=== PATIENT | male | born 1955 | race Caucasian/White ===

== ENCOUNTER 2019-11-11 08:34 | Outpatient (CLI) | payer MEDICAID, SELFPAY ==
[2019-11-11 08:48] LABS: Basophils Absolute Auto 0.2 K/mm3 (0.0-0.1); Basophils Percent Auto 0.3 % (0.2-1.2); Eosinophils Absolute Auto 0.1 K/mm3 (0-0.3); Eosinophils Percent Auto 0.2 % (0-4.4); Hematocrit 42.4 % (42.0-52.0); Hemoglobin 13.5 g/dL (14.0-18.0); Immature Granulocyte Absolute 0.11 K/mm3 (0.00-0.031); Immature Granulocyte Percent A 0.2 % (0-0.5); Lymphocytes Absolute Auto 46.47 K/mm3 (0.9-3.2); Lymphocytes Percent Auto 84.5 % (18.3-44.2); Mean Corpuscular HGB Conc 31.8 g/dl (32-36); Mean Corpuscular Hemoglobin 32.6 pg (26-34); Mean Corpuscular Volume 102.4 fl (80-100); Mean Platelet Volume 8.3 fl (7.4-10.4); Monocytes Absolute Auto 2.2 K/mm3 (0.1-0.6); Neutrophils Absolute Auto 5.9 K/mm3 (1.3-6.7); Neutrophils Percent Auto 10.8 % (45.5-73.1); Platelet Count Result 224 k/mm3 (150-375); Red Blood Count 4.14 M/mm3 (4.6-6.20); Red Cell Distribution Width 13.3 % (11.5-14.5)
[2019-11-11 08:52] LABS: Blood Urea Nitrogen 17 mg/dL (8-26); Carbon Dioxide 27 mmol/L (22-30); Chloride 103 mmol/L (98-109); Estimated Glomerular Filt Rate > 60; Glucose 105 mg/dL (70-105); Potassium 3.9 mmol/L (3.5-4.9); Sodium 141 mmol/L (138-146)
[2019-11-11 08:54] LABS: Atypical Lymphocytes Present; Platelet Estimate Adequate (Adequate)
[2019-11-11 12:20] LABS: Alanine Aminotransferase 15 U/L (4-50); Albumin Level 4.2 g/dL (3.5-5.1); Alkaline Phosphatase 113 U/L (38-126); Aspartate Amino Transferase 23 U/L (17-59); Bilirubin,Total 0.4 mg/dL (0.2-1.3); Blood Urea Nitrogen 17 mg/dL (9-20); Calcium 8.8 mg/dL (8.4-10.2); Carbon Dioxide 28 mmol/L (22-30); Chloride 103 mmol/L (98-107); Estimated Glomerular Filt Rate > 60; Glucose 102 mg/dL (75-110); Lactate Dehydrogenase 320 U/L (313-618); Potassium 4.1 mmol/L (3.4-5.0); Sodium 138 mmol/L (137-145)
== END 2019-11-11 08:35 | disposition home or self-care (01) ==
LOC: ANHLAB 08:38
PROVIDERS: PCP Internal Medicine Gastroenterology; Visit Provider Internal Medicine Hematology & Oncology
DX: C91.10 Chronic lymphocytic leukemia of B-cell type not having achieved remission (principal)
CPT/HCPCS: 36415; 80048; 80053; 83615; 85025

== ENCOUNTER 2020-02-12 10:11 | Outpatient (CLI) | payer MEDICARE, MEDICAID, SELFPAY ==
[2020-02-12 10:26] LABS: Basophils Absolute Auto 0.1 K/mm3 (0.0-0.1); Basophils Percent Auto 0.1 % (0.2-1.2); Eosinophils Absolute Auto 0.1 K/mm3 (0-0.3); Eosinophils Percent Auto 0.2 % (0-4.4); Hematocrit 41.2 % (42.0-52.0); Hemoglobin 13.4 g/dL (14.0-18.0); Immature Granulocyte Absolute 0.19 K/mm3 (0.00-0.031); Immature Granulocyte Percent A 0.3 % (0-0.5); Lymphocytes Absolute Auto 57.41 K/mm3 (0.9-3.2); Lymphocytes Percent Auto 84.4 % (18.3-44.2); Mean Corpuscular HGB Conc 32.5 g/dl (32-36); Mean Corpuscular Hemoglobin 32.4 pg (26-34); Mean Corpuscular Volume 99.8 fl (80-100); Mean Platelet Volume 8.3 fl (7.4-10.4); Monocytes Absolute Auto 2.6 K/mm3 (0.1-0.6); Monocytes Percent Auto 3.7 % (2.6-8.5); Neutrophils Absolute Auto 7.7 K/mm3 (1.3-6.7); Neutrophils Percent Auto 11.3 % (45.5-73.1); Platelet Count Result 221 k/mm3 (150-375); Red Blood Count 4.13 M/mm3 (4.6-6.20); Red Cell Distribution Width 13.3 % (11.5-14.5)
[2020-02-12 10:39] LABS: Atypical Lymphocytes Present; Platelet Estimate Adequate (Adequate)
[2020-02-12 10:50] LABS: Blood Urea Nitrogen 23 mg/dL (8-26); Carbon Dioxide 23 mmol/L (22-30); Chloride 104 mmol/L (98-109); Estimated Glomerular Filt Rate > 60; Glucose 99 mg/dL (70-105); Potassium 3.8 mmol/L (3.5-4.9); Sodium 141 mmol/L (138-146)
[2020-02-12 11:41] LABS: Alanine Aminotransferase 17 U/L (4-50); Albumin Level 4.4 g/dL (3.5-5.1); Alkaline Phosphatase 147 U/L (38-126); Aspartate Amino Transferase 28 U/L (17-59); Bilirubin,Total 0.4 mg/dL (0.2-1.3); Blood Urea Nitrogen 23 mg/dL (9-20); Calcium 8.7 mg/dL (8.4-10.2); Carbon Dioxide 26 mmol/L (22-30); Chloride 104 mmol/L (98-107); Estimated Glomerular Filt Rate > 60; Glucose 103 mg/dL (75-110); Lactate Dehydrogenase 361 U/L (313-618); Potassium 4.1 mmol/L (3.4-5.0); Sodium 139 mmol/L (137-145)
== END 2020-02-12 10:12 | disposition home or self-care (01) ==
PROVIDERS: PCP Internal Medicine Gastroenterology; Visit Provider Internal Medicine Hematology & Oncology
DX: C91.10 Chronic lymphocytic leukemia of B-cell type not having achieved remission (principal)
CPT/HCPCS: 36415; 80048; 80053; 83615; 85025

== ENCOUNTER 2020-06-09 07:41 | Outpatient (CLI) | payer MEDICARE, MEDICAID, SELFPAY ==
[2020-06-09 09:34] LABS: Basophils Absolute Auto 0.3 K/mm3 (0.0-0.1); Basophils Percent Auto 0.4 % (0.2-1.2); Eosinophils Absolute Auto 0.1 K/mm3 (0-0.3); Eosinophils Percent Auto 0.2 % (0-4.4); Hematocrit 40.9 % (42.0-52.0); Hemoglobin 13.3 g/dL (14.0-18.0); Immature Granulocyte Absolute 0.17 K/mm3 (0.00-0.031); Immature Granulocyte Percent A 0.2 % (0-0.5); Lymphocytes Absolute Auto 63.22 K/mm3 (0.9-3.2); Lymphocytes Percent Auto 89.4 % (18.3-44.2); Mean Corpuscular HGB Conc 32.5 g/dl (32-36); Mean Corpuscular Hemoglobin 32.2 pg (26-34); Mean Platelet Volume 8.2 fl (7.4-10.4); Monocytes Absolute Auto 1.2 K/mm3 (0.1-0.6); Monocytes Percent Auto 1.6 % (2.6-8.5); Neutrophils Absolute Auto 5.8 K/mm3 (1.3-6.7); Neutrophils Percent Auto 8.2 % (45.5-73.1); Platelet Count Result 205 k/mm3 (150-375); Red Blood Count 4.13 M/mm3 (4.6-6.20); Red Cell Distribution Width 13.2 % (11.5-14.5)
[2020-06-09 09:45] LABS: Alanine Aminotransferase 18 U/L (4-50); Albumin Level 4.3 g/dL (3.5-5.1); Alkaline Phosphatase 133 U/L (38-126); Anion Gap 7 mmol/L (8-16); Aspartate Amino Transferase 29 U/L (17-59); Bilirubin,Total 0.6 mg/dL (0.2-1.3); Blood Urea Nitrogen 18 mg/dL (9-20); Calcium 9.2 mg/dL (8.4-10.2); Carbon Dioxide 31 mmol/L (22-30); Chloride 104 mmol/L (98-107); Estimated Glomerular Filt Rate > 60; Glucose 102 mg/dL (75-110); Lactate Dehydrogenase 374 U/L (313-618); Potassium 4.1 mmol/L (3.4-5.0); Sodium 142 mmol/L (137-145)
[2020-06-09 09:58] LABS: Atypical Lymphocytes Present; Platelet Estimate Adequate (Adequate); White Blood Count 70.7 K/mm3 (4.5-10.0)
[2020-06-09 09:59] LABS: Smudge Cells PRESENT
== END 2020-06-09 07:42 | disposition home or self-care (01) ==
PROVIDERS: PCP Internal Medicine Gastroenterology; Visit Provider Internal Medicine Hematology & Oncology
DX: C91.10 Chronic lymphocytic leukemia of B-cell type not having achieved remission (principal)
CPT/HCPCS: 36415; 80053; 83615; 85025

== ENCOUNTER 2020-10-12 10:04 | Outpatient (CLI) | payer MEDICARE, MEDICAID, SELFPAY ==
[2020-10-12 10:24] LABS: Hematocrit 39.1 % (42.0-52.0); Hemoglobin 12.7 g/dL (14.0-18.0); Mean Corpuscular HGB Conc 32.5 g/dl (32-36); Mean Corpuscular Hemoglobin 32.5 pg (26-34); Mean Platelet Volume 8.1 fl (7.4-10.4); Platelet Count Result 193 k/mm3 (150-375); Red Blood Count 3.91 M/mm3 (4.6-6.20); Red Cell Distribution Width 13.6 % (11.5-14.5)
[2020-10-12 10:27] LABS: White Blood Count 92.4 K/mm3 (4.5-10.0)
[2020-10-12 10:51] LABS: Band Neutrophils Percent 1 % (0-6); Lymphocytes Absolute Manual 79.46 K/mm3 (1.1-4.5); Monocytes Absolute Manual 5.54 K/mm3 (0.1-0.90); Monocytes Percent Manual 6 % (3-9); Neutrophils Absolute Manual 7.39 K/mm3 (1.3-6.7); Neutrophils Percent Manual 7 % (46-73); Total Cells Counted 100
[2020-10-12 10:52] LABS: Platelet Estimate Adequate (Adequate); Smudge Cells PRESENT
[2020-10-13 08:03] LABS: Alanine Aminotransferase 22 U/L (4-50); Albumin Level 4.1 g/dL (3.5-5.1); Alkaline Phosphatase 135 U/L (38-126); Anion Gap 5 mmol/L (8-16); Aspartate Amino Transferase 33 U/L (17-59); Bilirubin,Total 0.3 mg/dL (0.2-1.3); Blood Urea Nitrogen 21 mg/dL (9-20); Calcium 8.7 mg/dL (8.4-10.2); Carbon Dioxide 29 mmol/L (22-30); Chloride 106 mmol/L (98-107); Estimated Glomerular Filt Rate > 60; Glucose 102 mg/dL (75-110); Lactate Dehydrogenase 421 U/L (313-618); Sodium 140 mmol/L (137-145)
== END 2020-10-12 10:05 | disposition home or self-care (01) ==
LOC: ANHLAB 10:08
PROVIDERS: PCP Internal Medicine Gastroenterology; Visit Provider Internal Medicine Hematology & Oncology
DX: C91.10 Chronic lymphocytic leukemia of B-cell type not having achieved remission (principal)
CPT/HCPCS: 36415; 80053; 83615; 85025

== ENCOUNTER 2020-11-16 09:42 | Outpatient (CLI) | payer MEDICARE, MEDICAID, SELFPAY ==
[2020-11-16 09:57] LABS: Basophils Absolute Auto 0.1 K/mm3 (0.0-0.1); Eosinophils Absolute Auto 0.2 K/mm3 (0-0.3); Eosinophils Percent Auto 0.2 % (0-4.4); Hematocrit 40.8 % (42.0-52.0); Hemoglobin 12.8 g/dL (14.0-18.0); Immature Granulocyte Absolute 0.22 K/mm3 (0.00-0.031); Immature Granulocyte Percent A 0.2 % (0-0.5); Lymphocytes Absolute Auto 90.44 K/mm3 (0.9-3.2); Lymphocytes Percent Auto 90.4 % (18.3-44.2); Mean Corpuscular HGB Conc 31.4 g/dl (32-36); Mean Corpuscular Hemoglobin 31.4 pg (26-34); Mean Platelet Volume 8.2 fl (7.4-10.4); Monocytes Absolute Auto 2.9 K/mm3 (0.1-0.6); Monocytes Percent Auto 2.9 % (2.6-8.5); Neutrophils Absolute Auto 6.3 K/mm3 (1.3-6.7); Neutrophils Percent Auto 6.3 % (45.5-73.1); Platelet Count Result 199 k/mm3 (150-375); Red Blood Count 4.08 M/mm3 (4.6-6.20); Red Cell Distribution Width 13.4 % (11.5-14.5)
[2020-11-16 10:01] LABS: White Blood Count 100.1 K/mm3 (4.5-10.0)
[2020-11-16 10:03] LABS: Atypical Lymphocytes Present; Platelet Estimate Adequate (Adequate); Smudge Cells PRESENT
[2020-11-16 13:39] LABS: Alanine Aminotransferase 21 U/L (4-50); Albumin Level 4.4 g/dL (3.5-5.1); Alkaline Phosphatase 134 U/L (38-126); Anion Gap 5 mmol/L (8-16); Aspartate Amino Transferase 29 U/L (17-59); Bilirubin,Total 0.4 mg/dL (0.2-1.3); Blood Urea Nitrogen 19 mg/dL (9-20); Carbon Dioxide 29 mmol/L (22-30); Chloride 106 mmol/L (98-107); Estimated Glomerular Filt Rate > 60; Glucose 103 mg/dL (75-110); Lactate Dehydrogenase 391 U/L (313-618); Potassium 4.2 mmol/L (3.4-5.0); Sodium 140 mmol/L (137-145)
== END 2020-11-16 09:43 | disposition home or self-care (01) ==
LOC: ANHLAB 09:44
PROVIDERS: PCP Internal Medicine Gastroenterology; Visit Provider Internal Medicine Hematology & Oncology
DX: C91.10 Chronic lymphocytic leukemia of B-cell type not having achieved remission (principal)
CPT/HCPCS: 36415; 80053; 83615; 85025

== ENCOUNTER 2021-02-24 09:44 | Outpatient (CLI) | payer MEDICARE, MEDICAID, SELFPAY ==
[2021-02-24 10:00] LABS: Basophils Absolute Auto 0.2 K/mm3 (0.0-0.1); Basophils Percent Auto 0.1 % (0.2-1.2); Eosinophils Absolute Auto 0.2 K/mm3 (0-0.3); Eosinophils Percent Auto 0.1 % (0-4.4); Hematocrit 39.4 % (42.0-52.0); Hemoglobin 12.4 g/dL (14.0-18.0); Immature Granulocyte Absolute 0.28 K/mm3 (0.00-0.031); Immature Granulocyte Percent A 0.2 % (0-0.5); Lymphocytes Absolute Auto 114.19 K/mm3 (0.9-3.2); Lymphocytes Percent Auto 88.8 % (18.3-44.2); Mean Corpuscular HGB Conc 31.5 g/dl (32-36); Mean Corpuscular Hemoglobin 31.4 pg (26-34); Mean Corpuscular Volume 99.7 fl (80-100); Monocytes Absolute Auto 7.4 K/mm3 (0.1-0.6); Monocytes Percent Auto 5.7 % (2.6-8.5); Neutrophils Absolute Auto 6.4 K/mm3 (1.3-6.7); Neutrophils Percent Auto 5.1 % (45.5-73.1); Platelet Count Result 203 k/mm3 (150-375); Red Blood Count 3.95 M/mm3 (4.6-6.20); Red Cell Distribution Width 13.4 % (11.5-14.5)
[2021-02-24 10:07] LABS: White Blood Count 128.6 K/mm3 (4.5-10.0)
[2021-02-24 10:10] LABS: Atypical Lymphocytes Present; Platelet Estimate Adequate (Adequate); Smudge Cells PRESENT
[2021-02-24 11:55] LABS: Alanine Aminotransferase 25 U/L (4-50); Albumin Level 4.2 g/dL (3.5-5.1); Alkaline Phosphatase 163 U/L (38-126); Anion Gap 8 mmol/L (8-16); Aspartate Amino Transferase 35 U/L (17-59); Bilirubin,Total 0.5 mg/dL (0.2-1.3); Blood Urea Nitrogen 20 mg/dL (9-20); Calcium 9.1 mg/dL (8.4-10.2); Carbon Dioxide 28 mmol/L (22-30); Chloride 102 mmol/L (98-107); Estimated Glomerular Filt Rate > 60; Glucose 84 mg/dL (65-110); Lactate Dehydrogenase 415 U/L (313-618); Potassium 4.2 mmol/L (3.4-5.0); Sodium 138 mmol/L (137-145)
== END 2021-02-24 09:45 | disposition home or self-care (01) ==
LOC: ANHLAB 09:49
PROVIDERS: PCP Internal Medicine Gastroenterology; Visit Provider Internal Medicine Hematology & Oncology
DX: C91.10 Chronic lymphocytic leukemia of B-cell type not having achieved remission (principal)
CPT/HCPCS: 36415; 80053; 83615; 85025

== ENCOUNTER 2021-05-27 10:20 | Outpatient (CLI) | payer MEDICARE, MEDICAID, SELFPAY ==
[2021-05-27 10:50] LABS: Basophils Absolute Auto 0.1 K/mm3 (0.0-0.1); Basophils Percent Auto 0.1 % (0.2-1.2); Eosinophils Absolute Auto 0.2 K/mm3 (0-0.3); Eosinophils Percent Auto 0.1 % (0-4.4); Hematocrit 38.5 % (42.0-52.0); Hemoglobin 11.9 g/dL (14.0-18.0); Immature Granulocyte Absolute 0.29 K/mm3 (0.00-0.031); Immature Granulocyte Percent A 0.2 % (0-0.5); Lymphocytes Absolute Auto 120.38 K/mm3 (0.9-3.2); Lymphocytes Percent Auto 89.1 % (18.3-44.2); Mean Corpuscular HGB Conc 30.9 g/dl (32-36); Mean Corpuscular Hemoglobin 31.3 pg (26-34); Mean Corpuscular Volume 101.3 fl (80-100); Mean Platelet Volume 8.3 fl (7.4-10.4); Monocytes Absolute Auto 8.2 K/mm3 (0.1-0.6); Neutrophils Absolute Auto 6.1 K/mm3 (1.3-6.7); Neutrophils Percent Auto 4.5 % (45.5-73.1); Platelet Count Result 183 k/mm3 (150-375); Red Cell Distribution Width 13.9 % (11.5-14.5)
[2021-05-27 10:56] LABS: White Blood Count 135.1 K/mm3 (4.5-10.0)
[2021-05-27 10:58] LABS: Atypical Lymphocytes Present; Platelet Estimate Adequate (Adequate); Smudge Cells PRESENT
[2021-05-27 11:39] LABS: Alanine Aminotransferase 26 U/L (4-50); Albumin Level 4.3 g/dL (3.5-5.1); Alkaline Phosphatase 153 U/L (38-126); Anion Gap 6 mmol/L (8-16); Aspartate Amino Transferase 57 U/L (17-59); Bilirubin,Total 0.5 mg/dL (0.2-1.3); Blood Urea Nitrogen 21 mg/dL (9-20); Calcium 9.3 mg/dL (8.4-10.2); Carbon Dioxide 32 mmol/L (22-30); Chloride 103 mmol/L (98-107); Estimated Glomerular Filt Rate > 60; Glucose 101 mg/dL (65-110); Lactate Dehydrogenase 417 U/L (313-618); Sodium 141 mmol/L (137-145)
== END 2021-05-27 10:21 | disposition home or self-care (01) ==
PROVIDERS: PCP Internal Medicine Gastroenterology; Visit Provider Internal Medicine Hematology & Oncology
DX: C91.10 Chronic lymphocytic leukemia of B-cell type not having achieved remission (principal)
CPT/HCPCS: 36415; 80053; 83615; 85025

== ENCOUNTER 2021-08-26 10:57 | Outpatient (CLI) | payer OTHER, SELFPAY ==
[2021-08-26 11:30] LABS: Hematocrit 39.8 % (42.0-52.0); Mean Corpuscular HGB Conc 30.2 g/dl (32-36); Mean Corpuscular Volume 102.8 fl (80-100); Mean Platelet Volume 7.8 fl (7.4-10.4); Platelet Count Result 233 k/mm3 (150-375); Red Blood Count 3.87 M/mm3 (4.6-6.20); Red Cell Distribution Width 13.8 % (11.5-14.5)
[2021-08-26 11:34] LABS: White Blood Count 126.3 K/mm3 (4.5-10.0)
[2021-08-26 11:38] LABS: Atypical Lymphocytes Present; Lymphocytes Absolute Manual 118.72 K/mm3 (1.1-4.5); Monocytes Absolute Manual 1.26 K/mm3 (0.1-0.90); Monocytes Percent Manual 1 % (3-9); Neutrophils Percent Manual 5 % (46-73); Nucleated Red Blood Cells 2 %; Platelet Estimate Adequate (Adequate); Smudge Cells PRESENT; Total Cells Counted 100
[2021-08-26 14:33] LABS: Alanine Aminotransferase 60 U/L (4-50); Albumin Level 4.2 g/dL (3.5-5.1); Alkaline Phosphatase 281 U/L (38-126); Anion Gap 7 mmol/L (8-16); Aspartate Amino Transferase 92 U/L (17-59); Bilirubin,Total 0.5 mg/dL (0.2-1.3); Blood Urea Nitrogen 23 mg/dL (9-20); Calcium 9.6 mg/dL (8.4-10.2); Carbon Dioxide 32 mmol/L (22-30); Chloride 100 mmol/L (98-107); Estimated Glomerular Filt Rate > 60; Glucose 93 mg/dL (65-110); Lactate Dehydrogenase 613 U/L (313-618); Potassium 4.4 mmol/L (3.4-5.0); Sodium 139 mmol/L (137-145)
== END 2021-08-26 10:58 | disposition home or self-care (01) ==
LOC: ANHLAB 11:04
PROVIDERS: PCP Internal Medicine Gastroenterology; Visit Provider Internal Medicine Hematology & Oncology
DX: C91.10 Chronic lymphocytic leukemia of B-cell type not having achieved remission (principal)
CPT/HCPCS: 36415; 80053; 83615; 85025

== ENCOUNTER 2021-10-13 10:36 | Outpatient (CLI) | payer MEDICARE, SELFPAY ==
[2021-10-13 10:52] LABS: Basophils Absolute Auto 0.1 K/mm3 (0.0-0.1); Basophils Percent Auto 0.6 % (0.2-1.2); Eosinophils Absolute Auto 0.2 K/mm3 (0-0.3); Eosinophils Percent Auto 2.6 % (0-4.4); Hematocrit 35.2 % (42.0-52.0); Hemoglobin 11.3 g/dL (14.0-18.0); Immature Granulocyte Absolute 0.04 K/mm3 (0.00-0.031); Immature Granulocyte Percent A 0.5 % (0-0.5); Lymphocytes Absolute Auto 3.21 K/mm3 (0.9-3.2); Lymphocytes Percent Auto 38.2 % (18.3-44.2); Mean Corpuscular HGB Conc 32.1 g/dl (32-36); Mean Corpuscular Hemoglobin 32.2 pg (26-34); Mean Corpuscular Volume 100.3 fl (80-100); Mean Platelet Volume 7.9 fl (7.4-10.4); Monocytes Absolute Auto 0.8 K/mm3 (0.1-0.6); Monocytes Percent Auto 9.8 % (2.6-8.5); Neutrophils Absolute Auto 4.1 K/mm3 (1.3-6.7); Neutrophils Percent Auto 48.3 % (45.5-73.1); Platelet Count Result 178 k/mm3 (150-375); Red Blood Count 3.51 M/mm3 (4.6-6.20); Red Cell Distribution Width 14.5 % (11.5-14.5); White Blood Count 8.4 K/mm3 (4.5-10.0)
[2021-10-13 11:29] LABS: Alanine Aminotransferase 30 U/L (4-50); Albumin Level 3.9 g/dL (3.5-5.1); Alkaline Phosphatase 131 U/L (38-126); Anion Gap 4 mmol/L (8-16); Aspartate Amino Transferase 26 U/L (17-59); Bilirubin,Total 0.5 mg/dL (0.2-1.3); Blood Urea Nitrogen 23 mg/dL (9-20); Calcium 8.8 mg/dL (8.4-10.2); Carbon Dioxide 32 mmol/L (22-30); Chloride 102 mmol/L (98-107); Estimated Glomerular Filt Rate > 60; Glucose 119 mg/dL (65-110); Lactate Dehydrogenase 259 U/L (313-618); Potassium 3.8 mmol/L (3.4-5.0); Sodium 138 mmol/L (137-145)
== END 2021-10-13 10:37 | disposition home or self-care (01) ==
PROVIDERS: Visit Provider Internal Medicine Hematology & Oncology
DX: C91.10 Chronic lymphocytic leukemia of B-cell type not having achieved remission (principal)
CPT/HCPCS: 36415; 80053; 83615; 85025

== ENCOUNTER 2021-11-05 12:31 | Outpatient (CLI) | payer MEDICARE, SELFPAY ==
[2021-11-05 12:51] LABS: Basophils Absolute Auto 0.1 K/mm3 (0.0-0.1); Eosinophils Absolute Auto 0.4 K/mm3 (0-0.3); Eosinophils Percent Auto 6.2 % (0-4.4); Hematocrit 40.4 % (42.0-52.0); Hemoglobin 13.1 g/dL (14.0-18.0); Immature Granulocyte Absolute 0.02 K/mm3 (0.00-0.031); Immature Granulocyte Percent A 0.3 % (0-0.5); Lymphocytes Absolute Auto 0.57 K/mm3 (0.9-3.2); Lymphocytes Percent Auto 8.3 % (18.3-44.2); Mean Corpuscular HGB Conc 32.4 g/dl (32-36); Mean Corpuscular Hemoglobin 32.3 pg (26-34); Mean Corpuscular Volume 99.5 fl (80-100); Mean Platelet Volume 7.7 fl (7.4-10.4); Monocytes Absolute Auto 0.6 K/mm3 (0.1-0.6); Monocytes Percent Auto 9.1 % (2.6-8.5); Neutrophils Absolute Auto 5.2 K/mm3 (1.3-6.7); Neutrophils Percent Auto 75.1 % (45.5-73.1); Platelet Count Result 135 k/mm3 (150-375); Red Blood Count 4.06 M/mm3 (4.6-6.20); Red Cell Distribution Width 14.6 % (11.5-14.5); White Blood Count 6.9 K/mm3 (4.5-10.0)
[2021-11-05 15:10] LABS: Anion Gap 7 mmol/L (8-16); Blood Urea Nitrogen 17 mg/dL (9-20); Calcium 8.7 mg/dL (8.4-10.2); Carbon Dioxide 29 mmol/L (22-30); Chloride 104 mmol/L (98-107); Estimated Glomerular Filt Rate > 60; Glucose 105 mg/dL (65-110); Potassium 3.7 mmol/L (3.4-5.0); Sodium 140 mmol/L (137-145)
== END 2021-11-05 12:32 | disposition home or self-care (01) ==
LOC: ANHLAB 12:34
PROVIDERS: Visit Provider Internal Medicine Hematology & Oncology
DX: C91.10 Chronic lymphocytic leukemia of B-cell type not having achieved remission (principal)
CPT/HCPCS: 36415; 80048; 85025

== ENCOUNTER 2022-03-02 11:01 | Outpatient (CLI) | payer MEDICARE, SELFPAY ==
[2022-03-02 11:24] LABS: Eosinophils Absolute Auto 0.2 K/mm3 (0-0.3); Eosinophils Percent Auto 3.8 % (0-4.4); Hematocrit 34.1 % (42.0-52.0); Hemoglobin 11.8 g/dL (14.0-18.0); Immature Granulocyte Absolute 0.03 K/mm3 (0.00-0.031); Immature Granulocyte Percent A 0.8 % (0-0.5); Lymphocytes Absolute Auto 0.45 K/mm3 (0.9-3.2); Lymphocytes Percent Auto 11.5 % (18.3-44.2); Mean Corpuscular HGB Conc 34.6 g/dl (32-36); Mean Corpuscular Hemoglobin 33.3 pg (26-34); Mean Corpuscular Volume 96.3 fl (80-100); Mean Platelet Volume 7.7 fl (7.4-10.4); Monocytes Absolute Auto 0.6 K/mm3 (0.1-0.6); Monocytes Percent Auto 16.4 % (2.6-8.5); Neutrophils Absolute Auto 2.6 K/mm3 (1.3-6.7); Neutrophils Percent Auto 66.5 % (45.5-73.1); Platelet Count Result 186 k/mm3 (150-375); Red Blood Count 3.54 M/mm3 (4.6-6.20); Red Cell Distribution Width 13.6 % (11.5-14.5); White Blood Count 3.9 K/mm3 (4.5-10.0)
[2022-03-02 12:23] LABS: Alanine Aminotransferase 18 U/L (6-50); Albumin Level 4.2 g/dL (3.5-5.1); Alkaline Phosphatase 87 U/L (38-126); Anion Gap 8 mmol/L (8-16); Aspartate Amino Transferase 24 U/L (17-59); Bilirubin,Total 0.5 mg/dL (0.2-1.3); Blood Urea Nitrogen 13 mg/dL (9-20); Calcium 8.4 mg/dL (8.4-10.2); Carbon Dioxide 28 mmol/L (22-30); Chloride 104 mmol/L (98-107); Estimated Glomerular Filt Rate > 60; Glucose 106 mg/dL (65-110); Potassium 3.9 mmol/L (3.4-5.0); Sodium 140 mmol/L (137-145)
== END 2022-03-02 11:02 | disposition home or self-care (01) ==
LOC: ANHLAB 11:03
PROVIDERS: Visit Provider Internal Medicine Hematology & Oncology
DX: C91.10 Chronic lymphocytic leukemia of B-cell type not having achieved remission (principal)
CPT/HCPCS: 36415; 80053; 85025

== ENCOUNTER 2022-06-16 11:33 | Outpatient (CLI) | payer MEDICARE, SELFPAY ==
[2022-06-16 11:44] LABS: Basophils Absolute Auto 0.1 K/mm3 (0.0-0.1); Basophils Percent Auto 0.8 % (0.2-1.2); Eosinophils Absolute Auto 0.2 K/mm3 (0-0.3); Eosinophils Percent Auto 3.4 % (0-4.4); Hemoglobin 12.4 g/dL (14.0-18.0); Immature Granulocyte Absolute 0.05 K/mm3 (0.00-0.031); Immature Granulocyte Percent A 0.8 % (0-0.5); Lymphocytes Absolute Auto 0.95 K/mm3 (0.9-3.2); Lymphocytes Percent Auto 14.5 % (18.3-44.2); Mean Corpuscular HGB Conc 34.4 g/dl (32-36); Mean Corpuscular Hemoglobin 34.2 pg (26-34); Mean Corpuscular Volume 99.2 fl (80-100); Mean Platelet Volume 7.9 fl (7.4-10.4); Monocytes Absolute Auto 0.6 K/mm3 (0.1-0.6); Neutrophils Absolute Auto 4.7 K/mm3 (1.3-6.7); Neutrophils Percent Auto 71.5 % (45.5-73.1); Platelet Count Result 221 k/mm3 (150-375); Red Blood Count 3.63 M/mm3 (4.6-6.20); Red Cell Distribution Width 12.8 % (11.5-14.5); White Blood Count 6.5 K/mm3 (4.5-10.0)
[2022-06-16 17:03] LABS: Alanine Aminotransferase 23 U/L (6-50); Albumin Level 4.2 g/dL (3.5-5.1); Alkaline Phosphatase 113 U/L (38-126); Anion Gap 8 mmol/L (8-16); Aspartate Amino Transferase 41 U/L (17-59); Bilirubin,Total 0.4 mg/dL (0.2-1.3); Blood Urea Nitrogen 19 mg/dL (9-20); Calcium 8.7 mg/dL (8.4-10.2); Carbon Dioxide 29 mmol/L (22-30); Chloride 103 mmol/L (98-107); Estimated Glomerular Filt Rate > 60; Glucose 108 mg/dL (65-110); Lactate Dehydrogenase 248 U/L (120-246); Potassium 3.7 mmol/L (3.4-5.0); Sodium 140 mmol/L (137-145)
== END 2022-06-16 11:34 | disposition home or self-care (01) ==
LOC: ANHLAB 11:34
PROVIDERS: Visit Provider Internal Medicine Hematology & Oncology
DX: C91.10 Chronic lymphocytic leukemia of B-cell type not having achieved remission (principal)
CPT/HCPCS: 36415; 80053; 83615; 85025

== ENCOUNTER 2022-10-19 10:50 | Outpatient (CLI) | payer MEDICARE, SELFPAY ==
[2022-10-19 11:04] LABS: Basophils Absolute Auto 0.1 K/mm3 (0.0-0.1); Eosinophils Absolute Auto 0.4 K/mm3 (0-0.3); Eosinophils Percent Auto 6.3 % (0-4.4); Hematocrit 40.1 % (42.0-52.0); Hemoglobin 13.4 g/dL (14.0-18.0); Immature Granulocyte Absolute 0.02 K/mm3 (0.00-0.031); Immature Granulocyte Percent A 0.3 % (0-0.5); Lymphocytes Percent Auto 19.4 % (18.3-44.2); Mean Corpuscular HGB Conc 33.4 g/dl (32-36); Mean Corpuscular Hemoglobin 33.1 pg (26-34); Mean Platelet Volume 7.8 fl (7.4-10.4); Monocytes Absolute Auto 0.6 K/mm3 (0.1-0.6); Monocytes Percent Auto 9.9 % (2.6-8.5); Neutrophils Absolute Auto 3.9 K/mm3 (1.3-6.7); Neutrophils Percent Auto 63.1 % (45.5-73.1); Platelet Count Result 245 k/mm3 (150-375); Red Blood Count 4.05 M/mm3 (4.6-6.20); Red Cell Distribution Width 12.9 % (11.5-14.5); White Blood Count 6.2 K/mm3 (4.5-10.0)
[2022-10-19 11:09] LABS: Blood Urea Nitrogen 18 mg/dL (8-26); Carbon Dioxide 35 mmol/L (22-30); Chloride 101 mmol/L (98-109); Estimated Glomerular Filt Rate > 60; Glucose 75 mg/dL (70-105); Ionized Calcium (POC) 1.21 mmol/L (1.11-1.31); Potassium 4.4 mmol/L (3.5-4.9); Sodium 142 mmol/L (138-146)
[2022-10-19 16:36] LABS: Alanine Aminotransferase 22 U/L (6-50); Albumin Level 4.2 g/dL (3.5-5.1); Alkaline Phosphatase 121 U/L (38-126); Anion Gap 1 mmol/L (8-16); Aspartate Amino Transferase 27 U/L (17-59); Bilirubin,Total 0.5 mg/dL (0.2-1.3); Blood Urea Nitrogen 18 mg/dL (9-20); Carbon Dioxide 33 mmol/L (22-30); Chloride 102 mmol/L (98-107); Estimated Glomerular Filt Rate > 60; Glucose 73 mg/dL (65-110); Potassium 4.5 mmol/L (3.4-5.0); Sodium 136 mmol/L (137-145)
== END 2022-10-19 10:51 | disposition home or self-care (01) ==
LOC: ANHLAB 10:52
PROVIDERS: Visit Provider Internal Medicine Hematology & Oncology
DX: C91.10 Chronic lymphocytic leukemia of B-cell type not having achieved remission (principal)
CPT/HCPCS: 36415; 80047; 80053; 85025

== ENCOUNTER 2022-10-31 00:23 | Day surgery (SDC) | payer MEDICARE, MEDICAID, SELFPAY ==
--- NOTE | 2022-10-24 08:36 | PC.NURSE ---
Report to the Outpatient Waiting Room, entrance under the green pavilion located off [facility], at time _0630 on date _10/31/22 . Planned Procedure Time: __829 . Time changes happen often and if your time is changed the preop area will call you the afternoon before. - You and your visitor will be asked to self-screen and do not enter if you have any COVID symptoms. - Only one visitor is requested with a max of two and NO children visitors are allowed at this time. - The patient visitor may be requested to leave or wait in car when not with patient due to distancing restrictions. - A mask is optional within the hospital at this time. Patients may have clear liquids (water, carbonated beverages, clear teas, apple juice) until 3 hours prior to surgery with a maximum of 20 ounces. - No food from midnight until time of surgery - Infants may have breast milk until 4 hours before surgery, infant formula 6 hours prior to surgery. - Children will be allowed to drink immediately following surgery. If applicable, please bring a bottle or sippy cup to assist with drinking. Juice, water, soda, and popsicles are readily available. For infants on formula, please bring formula the day of surgery. Pacifiers are allowed. Take the following medications with a SIP of water the morning of surgery: ____NONE DO NOT STOP ANY OF YOUR OTHER PRESCRIPTION MEDICATIONS PRIOR TO SURGERY ?EXCEPT THE FOLLOWING Medications to discontinue per physician __ALL VITAMINS 3 DAYS PRE OP . LAST DOSE 10/27/22 Please no make-up, nail macedonian, hairspray, perfume, deodorant, or body powder the day of surgery. No jewelry (including any body piercings) or valuables the day of surgery, leave them at home. Please take a shower or bath the night before, or the morning of, surgery with an antibacterial soap. Wear comfortable, loose fitting clothing. Children are encouraged to wear pajamas. - Jewelry must be removed prior to entering the operating room. Rings and piercings that are not removed may be cut off. - The hospital will not accept responsibility for valuables. - Please leave all valuables, including medications, at home the day of surgery. If you are going home after surgery, a licensed driver guard must drive you home. - NO public transportation without another adult if you receive anesthesia. - We recommend that an adult stay with you for 24 hours following discharge. - We also recommend that you do not drive, make important decision, drink alcoholic beverages, or take any drugs that were not prescribed by your health care provider for at least 24 hours after your discharge time. For Pediatric surgeries, we recommend two adults accompany the child home. Follow any additional instructions given to you from your surgeon. If you or anyone in your household have experienced Covid symptoms in the past week, please notify your surgeon or the nurse liaison at the phone number below for possible testing. Telephone instructions given to __PATIENT and asked if any additional questions and then verbalized understanding. Patient advised to call surgeon office or pre surgery nurse liaison [phone] if any additional questions.
[2022-10-24 08:41] VITALS: BMI 25.1
[2022-10-31 07:10] VITALS: BP 135/71; PULSE 62; RESP 16; TEMP 36.4; O2SAT 100
--- NOTE | 2022-10-31 07:55 | PM.IMHP ---
H&P: HPI History of Present Illness Date/Time: 10/31/22 07:55 Chief Complaint: Hx of leukemia Narrative: Pt with hx of leukemia treated with chemotherapy about 8-9 months ago. Had a portacatheter placed for chemo tx. He is now in remission and no longer needs the port. He presents for removal of the port. Review of Systems Review of Systems: I have discussed the patient with Laurita Amato APN and agree with the documented note below and care plan. [facility] Social History Social History Smoking status: Never smoker Living arrangements: with family Spiritual care concerns: No Meds Home Medications and Allergies Home Medications Medication Instructions Recorded Confirmed Type cyanocobalamin (vitamin B-12) 2,500 mcg PO DAILY 10/24/22 10/31/22 History 2,500 mcg tablet vitamin E 100 unit tablet 125 unit PO DAILY 10/24/22 10/31/22 History Allergies Allergy/AdvReac Type Severity Reaction Status Date / Time No Known Allergies Allergy Verified 10/31/22 07:47 Exam Narrative: Right upper anterior chest port in SQ tissues. No redness or drainage over the port. Catheter palpable in SQ tissues tracking up to the right anterior neck and enters the right IJ vein. Resp: Effort & Inspection: normal respiratory effort Auscultation: clear to auscultation bilaterally Cardio: Rate: regular rate Rhythm: regular rhythm Skin: General skin exam: normal color and no rashes or lesions noted Neuro: Speech: normal speech Sensory Exam: normal sensation Psych: Mental Status: mental status grossly normal Affect: normal affect Assessment and Plan Assessment and plan (1) CLL (chronic lymphocytic leukemia): Code(s): C91.10 - Chronic lymphocytic leukemia of B-cell type not having achieved remission Status: Acute Assessment and Plan: Now in remission. He no longer needs the portacatheter. Will proceed to the OR today to remove the port. Risks, benefits, indications, and expected outcomes were discussed in detail with the patient and/or family. They understand and I have answered all other questions. They wished to proceed with surgery as outlined above.
--- NOTE | 2022-10-31 07:59 | WPDHPUPDATE1 ---
History and Physical Update Update Date/Time: 10/31/22 07:59 History and Physical has been reviewed, including an updated exam of the patient. There are NO changes in the patient's condition. Risks, benefits, and alternatives have been discussed and questions answered. Patient agrees to proceed with procedure.
[2022-10-31] MEDS: LACTATED RINGERS 1,000 ML 30 ML IV CONT (08:02)
--- NOTE | 2022-10-31 08:21 | P.PNAN_ITS ---
Anes - Initial Pre Proc Eval Procedure: Operation Date: 10/31/22 09:00 Proposed Procedures p Removal Mati Cath - Alonso Tomlinson MD Date/Time: 10/31/22 08:21 Surgeon: Alonso Tomlinson MD Pre Op Diagnosis: chronic lymphocytic leukemia of B cell Patient Data Age: 67 Gender: M Height: 1.78 m Weight: 81.8 kg Allergies Allergy/AdvReac Type Severity Reaction Status Date / Time No Known Allergies Allergy Verified 10/31/22 07:47 Home Medications Medication Instructions Recorded Confirmed Type cyanocobalamin (vitamin B-12) 2,500 mcg PO DAILY 10/24/22 10/31/22 History 2,500 mcg tablet vitamin E 100 unit tablet 125 unit PO DAILY 10/24/22 10/31/22 History Patient hx anesthesia problems: none Family hx anesthesia problems: none Results Review: All pre-operative results and documents have been reviewed as part of the pre- operative evaluation. [facility] Past Medical History Medical History (Updated 10/31/22 @ 08:24 by Marco Antonio Rodriguez DO) CLL (chronic lymphocytic leukemia) remission Social History Social History Smoking status: Never smoker Living arrangements: with family Spiritual care concerns: No Anes - Eval Final PreProcedure Day of Procedure 10/31/22 08:21 Patient weight: overweight Heart: regular rate and rhythm Lungs: clear to auscultation Airway: Mallampati scale class II Neurological: alert and oriented Last oral intake: >/= 8 hours ASA classification: II Emergent: no Anesthetic plan: proceed Anesthesia type and monitoring: general GIVS and standard monitoring Results Review: All pre-operative results and documents have been reviewed as part of the pre- operative evaluation. Informed Consent: The patient's anesthetic plan and its attendant risks and benefits were discussed with the patient/family/POA. Questions were solicited and answers provided to the satisfaction of the patient/family/POA.
[2022-10-31] MEDS: BUPivacaine HCL 0.5% PF 30 ML VIAL INFILTRATE (09:14)
[2022-10-31 09:27] VITALS: BP 92/62; PULSE 63; RESP 16; O2SAT 97
--- NOTE | 2022-10-31 09:32 | W.PM.PROC2 ---
Procedure Note - Detailed Date of Procedure 10/31/22 Pre-op Diagnosis History of chronic lymphocytic leukemia of B cell Post-op Diagnosis Same Procedure Performed Removal right internal jugular vein michael catheter. Surgeon Alonso Tomlinson MD Business Initiatives Manager Monse Bargg [facility] Anesthesia MAC and Local Indications Patient is a 67-year-old gentleman who about 8 to 9 months ago was treated for CLL with chemotherapy. He had a michael catheter placed at that time further treatment. He is now in remission and no longer needs the michael catheter. Findings None Description of Procedure After informed consent was obtained the patient was brought to the operating was placed in supine position and then IV sedation was administered by anesthesia. The right upper anterior neck and chest were then prepped and draped in usual sterile fashion. Time-out was then performed correctly identifying the patient as well as procedure to be performed verifying the site marking. No perioperative IV antibiotics were given. I then used 1% lidocaine mixed with 0.5% Marcaine and injected it around the port for local anesthetic effect. I then made a small transverse incision at the hub of the port with the scalpel and dissected down through the subcutaneous tissue with electrocautery. Once I reached the hub of the port I then dissected the catheter away from the surrounding subcutaneous tissues to was mobile. Then with gentle traction on the catheter itself I then removed from the right internal jugular vein and then held pressure on that area for about 5minutes. Utilized electrocautery I needed dissect the port out the subcutaneous port pocket and then removed the port. The discarded. I then irrigated out the port pocket with sterile saline solution. Stasis was good. I then fulgurated the fibrous capsule subcutaneous tissue with a port was located and then closed the incision. Interrupted 3-0 Vicryl sutures were used to close the subcutaneous tissues. The skin edges were approximated utilizing a running subcuticular 4 Monocryl suture. Skin glue was used to dress the incision. The patient tolerated the procedure well no complications. All sponges, needles, and instrument counts were correct at the end procedure. EBL was _5__cc. The patient was awakened and taken to recovery in stable and satisfactory condition. Implants None Estimated Blood Loss 5 Drains No Packing No Pathology None sent Complications No immediate complications Condition Stable Disposition PACU [facility] Billing Surgery - Charge Forward: Surgery Billing
[2022-10-31 10:00] VITALS: BP 100/55; PULSE 60; RESP 14; O2SAT 97
[2022-10-31 10:26] VITALS: BP 115/69; PULSE 46; RESP 16
== END 2022-10-31 10:33 | disposition home or self-care (01) ==
PROVIDERS: Visit Provider Surgery
PROC: (CPT 36589; principal; 2022-10-31 09:00)
DX: Z45.2 Encounter for adjustment and management of vascular access device (principal); C91.11 Chronic lymphocytic leukemia of B-cell type in remission
CPT/HCPCS: 36590; J1100; J2250; J2405; J2704; J3010; J7120

== ENCOUNTER 2023-02-16 10:47 | Outpatient (CLI) | payer MEDICARE, MEDICAID, SELFPAY ==
[2023-02-16 10:56] LABS: Basophils Absolute Auto 0.1 K/mm3 (0.0-0.1); Basophils Percent Auto 0.8 % (0.2-1.2); Eosinophils Absolute Auto 0.2 K/mm3 (0-0.3); Eosinophils Percent Auto 3.2 % (0-4.4); Hematocrit 38.9 % (42.0-52.0); Immature Granulocyte Absolute 0.02 K/mm3 (0.00-0.031); Immature Granulocyte Percent A 0.3 % (0-0.5); Lymphocytes Absolute Auto 1.93 K/mm3 (0.9-3.2); Lymphocytes Percent Auto 25.5 % (18.3-44.2); Mean Corpuscular HGB Conc 33.4 g/dl (32-36); Mean Corpuscular Hemoglobin 33.7 pg (26-34); Mean Corpuscular Volume 100.8 fl (80-100); Mean Platelet Volume 7.9 fl (7.4-10.4); Monocytes Absolute Auto 0.6 K/mm3 (0.1-0.6); Monocytes Percent Auto 7.4 % (2.6-8.5); Neutrophils Absolute Auto 4.8 K/mm3 (1.3-6.7); Neutrophils Percent Auto 62.8 % (45.5-73.1); Platelet Count Result 236 k/mm3 (150-375); Red Blood Count 3.86 M/mm3 (4.6-6.20); Red Cell Distribution Width 12.8 % (11.5-14.5); White Blood Count 7.6 K/mm3 (4.5-10.0)
[2023-02-16 12:46] LABS: Alanine Aminotransferase 23 U/L (6-50); Albumin Level 4.1 g/dL (3.5-5.1); Alkaline Phosphatase 110 U/L (38-126); Anion Gap 4 mmol/L (8-16); Aspartate Amino Transferase 29 U/L (17-59); Bilirubin,Total 0.4 mg/dL (0.2-1.3); Blood Urea Nitrogen 14 mg/dL (9-20); Calcium 8.5 mg/dL (8.4-10.2); Carbon Dioxide 31 mmol/L (22-30); Chloride 103 mmol/L (98-107); Estimated Glomerular Filt Rate > 60; Glucose 123 mg/dL (65-110); Lactate Dehydrogenase 125 U/L (120-246); Sodium 138 mmol/L (137-145)
== END 2023-02-16 10:48 | disposition home or self-care (01) ==
LOC: ANHLAB 10:48
PROVIDERS: Visit Provider Internal Medicine Hematology & Oncology
DX: C91.10 Chronic lymphocytic leukemia of B-cell type not having achieved remission (principal)
CPT/HCPCS: 36415; 80053; 83615; 85025

== ENCOUNTER 2023-08-29 11:24 | Outpatient (CLI) | payer MEDICARE, MEDICAID, SELFPAY ==
[2023-08-29 11:46] LABS: Basophils Absolute Auto 0.1 K/mm3 (0.0-0.1); Basophils Percent Auto 0.9 % (0.2-1.2); Eosinophils Absolute Auto 0.3 K/mm3 (0-0.3); Eosinophils Percent Auto 3.8 % (0-4.4); Hematocrit 41.1 % (42.0-52.0); Hemoglobin 14.1 g/dL (14.0-18.0); Immature Granulocyte Absolute 0.02 K/mm3 (0.00-0.031); Immature Granulocyte Percent A 0.3 % (0-0.5); Lymphocytes Percent Auto 27.1 % (18.3-44.2); Mean Corpuscular HGB Conc 34.3 g/dl (32-36); Mean Corpuscular Hemoglobin 33.7 pg (26-34); Mean Corpuscular Volume 98.1 fl (80-100); Mean Platelet Volume 8.3 fl (7.4-10.4); Monocytes Absolute Auto 0.6 K/mm3 (0.1-0.6); Monocytes Percent Auto 7.6 % (2.6-8.5); Neutrophils Absolute Auto 4.4 K/mm3 (1.3-6.7); Neutrophils Percent Auto 60.3 % (45.5-73.1); Platelet Count Result 262 k/mm3 (150-375); Red Blood Count 4.19 M/mm3 (4.6-6.20); Red Cell Distribution Width 12.7 % (11.5-14.5); White Blood Count 7.4 K/mm3 (4.5-10.0)
[2023-08-29 16:35] LABS: Alanine Aminotransferase 23 U/L (6-50); Albumin Level 3.9 g/dL (3.5-5.1); Alkaline Phosphatase 137 U/L (38-126); Anion Gap 6 mmol/L (8-16); Aspartate Amino Transferase 27 U/L (17-59); Bilirubin,Total 0.4 mg/dL (0.2-1.3); Blood Urea Nitrogen 21 mg/dL (9-20); Calcium 9.1 mg/dL (8.4-10.2); Carbon Dioxide 29 mmol/L (22-30); Chloride 105 mmol/L (98-107); Estimated Glomerular Filt Rate > 60; Glucose 99 mg/dL (65-110); Lactate Dehydrogenase 152 U/L (120-246); Potassium 4.3 mmol/L (3.4-5.0); Sodium 140 mmol/L (137-145)
== END 2023-08-29 11:25 | disposition home or self-care (01) ==
LOC: ANHLAB 11:27
PROVIDERS: Visit Provider Internal Medicine Hematology & Oncology
DX: C91.10 Chronic lymphocytic leukemia of B-cell type not having achieved remission (principal)
CPT/HCPCS: 36415; 80053; 83615; 85025

== ENCOUNTER 2023-09-06 09:18 | Outpatient (CLI) | payer MEDICARE, MEDICAID, SELFPAY ==
[2023-09-06 11:40] LABS: Prostate Specific Antigen 1.8 ng/mL (< OR = 4.0)
== END 2023-09-06 09:19 | disposition home or self-care (01) ==
LOC: ANHLAB 09:22
PROVIDERS: Visit Provider Internal Medicine Hematology & Oncology
DX: R35.0 Frequency of micturition (principal)
CPT/HCPCS: 36415; 84153

== ENCOUNTER 2023-11-15 12:29 | Outpatient (CLI) | payer MEDICARE, MEDICAID, SELFPAY ==
--- NOTE | ~2023-11-15 | US_ITS ---
EXAMINATION: US soft tissue groin LT, US soft tissue groin RT DATE: 11/15/2023 13:22 INDICATION: Bilateral groin pain TECHNIQUE: Multiple grayscale and Doppler ultrasound images of the region of concern at both the left and right groin were obtained. COMPARISON: CT dated 04/28/1990 FINDINGS: There is a small fat-containing umbilical hernia which measures up to 2.4 x 1.2 cm in maximal orthogo nal dimensions which does not appear significantly changed accounting for differences in technique wh en compared with prior CT. No evident herniated bowel. There are normal-sized bilateral inguinal lymp h nodes with central fatty elan. No evident right-sided inguinal hernia. IMPRESSION: 1. Normal small bilateral inguinal lymph nodes and small fat-containing left inguinal hernia. Reviewed, dictated and finalized at location B. IMPRESSION: 1. Normal small bilateral inguinal lymph nodes and small fat-containing left in guinal hernia.
== END 2023-11-15 12:30 ==
PROVIDERS: PCP Urology; Visit Provider Internal Medicine Gastroenterology
DX: R10.30 Lower abdominal pain, unspecified (principal); K40.90 Unilateral inguinal hernia, without obstruction or gangrene, not specified as recurrent
CPT/HCPCS: 76882

== ENCOUNTER 2023-12-22 08:53 | Outpatient (CLI) | payer MEDICARE, MEDICAID, SELFPAY ==
[2023-12-22 09:15] LABS: Basophils Absolute Auto 0.1 K/mm3 (0.0-0.1); Basophils Percent Auto 0.7 % (0.2-1.2); Eosinophils Absolute Auto 0.2 K/mm3 (0-0.3); Eosinophils Percent Auto 2.3 % (0-4.4); Hematocrit 39.9 % (42.0-52.0); Hemoglobin 13.7 g/dL (14.0-18.0); Immature Granulocyte Absolute 0.02 K/mm3 (0.00-0.031); Immature Granulocyte Percent A 0.3 % (0-0.5); Lymphocytes Absolute Auto 2.02 K/mm3 (0.9-3.2); Mean Corpuscular HGB Conc 34.3 g/dl (32-36); Mean Corpuscular Hemoglobin 33.3 pg (26-34); Mean Corpuscular Volume 96.8 fl (80-100); Mean Platelet Volume 8.2 fl (7.4-10.4); Monocytes Absolute Auto 0.5 K/mm3 (0.1-0.6); Monocytes Percent Auto 7.1 % (2.6-8.5); Neutrophils Absolute Auto 4.7 K/mm3 (1.3-6.7); Neutrophils Percent Auto 62.6 % (45.5-73.1); Platelet Count Result 246 k/mm3 (150-375); Red Blood Count 4.12 M/mm3 (4.6-6.20); Red Cell Distribution Width 12.4 % (11.5-14.5); White Blood Count 7.5 K/mm3 (4.5-10.0)
[2023-12-22 09:37] LABS: Alanine Aminotransferase 17 U/L (6-50); Albumin Level 4.4 g/dL (3.5-5.1); Alkaline Phosphatase 107 U/L (38-126); Anion Gap 6 mmol/L (4-12); Aspartate Amino Transferase 32 U/L (17-59); Bilirubin,Total 0.7 mg/dL (0.2-1.3); Blood Urea Nitrogen 18 mg/dL (9-20); Calcium 8.7 mg/dL (8.4-10.2); Carbon Dioxide 27 mmol/L (22-30); Chloride 106 mmol/L (98-107); Estimated Glomerular Filt Rate > 60; Glucose 99 mg/dL (65-110); Potassium 3.8 mmol/L (3.4-5.0); Sodium 139 mmol/L (137-145)
[2023-12-22 10:06] LABS: Prostate Specific Antigen 1.6 ng/mL (< OR = 4.0)
== END 2023-12-22 08:54 | disposition home or self-care (01) ==
LOC: ANHLAB 08:55
PROVIDERS: PCP Urology; Visit Provider Internal Medicine Hematology & Oncology
DX: C91.10 Chronic lymphocytic leukemia of B-cell type not having achieved remission (principal); R35.0 Frequency of micturition
CPT/HCPCS: 36415; 80053; 84153; 85025

== ENCOUNTER 2024-01-18 13:47 | Outpatient (CLI) | payer MEDICARE, MEDICAID, SELFPAY ==
--- NOTE | ~2024-01-18 | CT_ITS ---
Non-contrast CT scan of the Abdomen and Pelvis Clinical indication: Right ureteral stone Technique: 2.5 mm axial scans were obtained through the abdomen and pelvis without intravenous or or al contrast. Dose reduction technique was used on this scan by utilizing automated exposure control a nd iterative reconstruction technique. The dose-length product (DLP) was 318.34 mGy-cm. Findings: Images through the lung bases reveal calcification granulomas and left basilar scarring or atelectasis. There is no evidence of renal or ureteral calculi. The kidneys and the ureters are nondilated. The liver, spleen, pancreas, gallbladder, and adrenals appear normal. There are atherosclerotic calci fications of the aorta. There is no evidence of bowel obstruction. Images through the pelvis were performed. There is no evidence of ascites or lymphadenopathy. Urinary bladder unremarkable. No pelvic mass seen. Impression: No renal, ureteral, or bladder stone. No hydronephrosis. Reviewed, dictated and finalized at [facility]. Impression: No renal, ureteral, or bladder stone. No hydronephrosis.
--- NOTE | ~2024-01-18 | XR_ITS ---
XR abdomen/kub 1V 01/18/2024 14:38 INDICATION: Right ureteral stone. Lower abdominal pain. TECHNIQUE: KUB COMPARISON: 04/28/2019 FINDINGS: Bowel gas pattern is normal. There is no evidence of free air, mass, organomegaly, ascites or obstruction. No abnormal calculi are seen. Calcifications in the pelvis are believed to be phleb oliths. The bones appear intact. IMPRESSION: 1: No acute abdominal abnormality identified. Reviewed, dictated and finalized at location B.
== END 2024-01-18 13:48 | disposition home or self-care (01) ==
PROVIDERS: PCP Urology; Visit Provider Urology
DX: N20.1 Calculus of ureter (principal)
CPT/HCPCS: 74018; 74176

== ENCOUNTER 2024-06-28 08:22 | Outpatient (CLI) | payer MEDICARE, MEDICAID, SELFPAY ==
[2024-06-28 08:40] LABS: Basophils Absolute Auto 0.1 K/mm3 (0.0-0.1); Basophils Percent Auto 0.8 % (0.2-1.2); Eosinophils Absolute Auto 0.2 K/mm3 (0-0.3); Eosinophils Percent Auto 2.5 % (0-4.4); Hematocrit 40.7 % (42.0-52.0); Hemoglobin 13.9 g/dL (14.0-18.0); Immature Granulocyte Absolute 0.01 K/mm3 (0.00-0.031); Immature Granulocyte Percent A 0.1 % (0-0.5); Lymphocytes Absolute Auto 2.18 K/mm3 (0.9-3.2); Lymphocytes Percent Auto 28.8 % (18.3-44.2); Mean Corpuscular HGB Conc 34.2 g/dl (32-36); Mean Corpuscular Volume 96.7 fl (80-100); Mean Platelet Volume 7.8 fl (7.4-10.4); Monocytes Absolute Auto 0.6 K/mm3 (0.1-0.6); Monocytes Percent Auto 8.3 % (2.6-8.5); Neutrophils Absolute Auto 4.5 K/mm3 (1.3-6.7); Neutrophils Percent Auto 59.5 % (45.5-73.1); Platelet Count Result 267 k/mm3 (150-375); Red Blood Count 4.21 M/mm3 (4.6-6.20); Red Cell Distribution Width 12.4 % (11.5-14.5); White Blood Count 7.6 K/mm3 (4.5-10.0)
[2024-06-28 11:22] LABS: Alanine Aminotransferase 15 U/L (6-50); Albumin Level 4.2 g/dL (3.5-5.1); Alkaline Phosphatase 111 U/L (38-126); Anion Gap 6 mmol/L (4-12); Aspartate Amino Transferase 23 U/L (17-59); Bilirubin,Total 0.6 mg/dL (0.2-1.3); Blood Urea Nitrogen 19 mg/dL (9-20); Carbon Dioxide 30 mmol/L (22-30); Chloride 105 mmol/L (98-107); Estimated Glomerular Filt Rate > 60; Glucose 98 mg/dL (65-110); Potassium 3.9 mmol/L (3.4-5.0); Sodium 141 mmol/L (137-145)
== END 2024-06-28 08:23 | disposition home or self-care (01) ==
LOC: ANHLAB 08:23
PROVIDERS: PCP Urology; Visit Provider Internal Medicine Hematology & Oncology
DX: C91.10 Chronic lymphocytic leukemia of B-cell type not having achieved remission (principal)
CPT/HCPCS: 36415; 80053; 85025

== ENCOUNTER 2024-11-21 08:14 | Emergency (ER) | payer MEDICARE, MEDICAID, SELFPAY ==
[2024-11-21] VITALS (7 sets, daily range): BP systolic 129–175; BP diastolic 67–88; PULSE 59–72; RESP 11–21; TEMP 36.7; O2SAT 100
--- NOTE | ~2024-11-21 | CT_ITS ---
EXAMINATION: CT brain wo con DATE: 11/21/2024 10:06 INDICATION: Stroke TECHNIQUE: Computed tomography (CT) of the head was performed without intravenous contrast. Sagittal and coronal reconstructions were performed. The mA was adjusted according to patient size. Iterative reconstruction technique was employed. The dose-length product was 605.33 mGy-cm. COMPARISON: None FINDINGS: No acute intracranial hemorrhage, acute infarction or abnormal extra axial fluid collection. Ventricl es are normal and symmetric. No mass/mass effect. Mucous retention cyst in the left maxillary sinus. The orbits and mastoid air cells are normal. IMPRESSION: 1. Normal for age brain. Reviewed, dictated and finalized at location A. IMPRESSION: 1. Normal for age brain.
--- NOTE | ~2024-11-21 | CT_ITS ---
EXAMINATION: CTA BRAIN/CAROTID DATE: 11/21/2024 10:01 INDICATION: Confusion TECHNIQUE: Computed tomographic angiography (CTA) of the head and neck was performed with 100 mL Omni paque-350 intravenous contrast. Multiplanar reconstructions and maximum intensity projection 3D-recon structions of the carotid arteries and of the intracranial arteries were created by the technologist on a separate workstation. Automated exposure control and iterative reconstruction technique were emp loyed.The dose-length product was 1009.17 mGy-cm. COMPARISON: Head CT dated 11/21/2024 FINDINGS: Carotid arteries: Visualized aortic arch and great vessels arising from the arch are normal in caliber with negligible atherosclerotic plaque and no dissection. Left vertebral artery is dominant with no significant steno sis along the extra cranial portion of the bilateral vertebral arteries. There is atherosclerotic tao que with 0% stenosis of the right carotid bulb relative to normal distal artery lumen diameter (NASCE T criteria). There is 25% stenosis of the left carotid bulb relative to normal distal artery lumen di ameter. Moderate cervical spondylosis. Cervical soft tissues are unremarkable. Mild atelectasis in th e visualized upper lungs, likely due to expiratory phase of imaging. Intracranial arteries The left vertebral artery is dominant. There is 30% stenosis at the distal right vertebral artery. Sm all amount of atherosclerotic plaque without significant stenosis at the bilateral carotid siphons. T here is no hemodynamically significant stenosis in the vertebral, basilar and internal carotid arteri es. There are no aneurysms identified. Both A1 and P1 segments are patent. Cerebral arterial arbori zation appears symmetric. IMPRESSION: 1. 0% stenosis of the right carotid bulb relative to normal distal artery lumen diameter (NASCET crit eria). 2. 25% stenosis of the left carotid bulb relative to normal distal artery lumen diameter. 3. No evident cerebral arterial hemodynamically significant stenosis, aneurysm or thrombosis. Reviewed, dictated and finalized at location A. IMPRESSION: 1. 0% stenosis of the right carotid bulb relative to normal distal artery lumen diameter (NASCET criteria). 2. 25% stenosis of the left carotid bulb relative to normal distal artery lumen diameter. 3. No evident cerebral arterial hemodynamically significant stenosis, aneurysm or thrombosis.
--- NOTE | ~2024-11-21 | XR_ITS ---
CHEST RADIOGRAPH, PA AND LATERAL CLINICAL HISTORY: MID STERNAL CP/SOB . COMPARISON: None available TECHNIQUE: PA and lateral views of the chest. FINDINGS Calcified lymph nodes within the mediastinum suggesting prior granulomatous disease. The remainder of the cardiomediastinal silhouette is otherwise unremarkable. The lungs are clear. Visualized osseous structures and soft tissues are unremarkable. IMPRESSION: No focal infiltrate or effusion. Reviewed, dictated and finalized at location A.
--- NOTE | ~2024-11-21 | CT_ITS ---
EXAMINATION: CTA chest PE protocol DATE: 11/21/2024 10:19 CDT INDICATION: Sudden onset of chest pain TECHNIQUE: Computed tomographic angiography (CTA) of the chest was performed with 75 mL Omnipaque-350 intravenous contrast. The dose-length product was 683.26 mGy-cm. Maximum intensity projection 3D-rec onstructions of the aorta and other arteries were constructed by the technologist on a separate works tation. COMPARISON: None. FINDINGS/OBSERVATIONS: PULMONARY ARTERIES: No filling defect is identified within the main or proximal pulmonary artery. The main pulmonary artery is not enlarged. THORACIC AORTA: No aneurysmal dilatation or dissection is present. The great vessels are intact LUNGS: Bibasilar atelectasis. The lungs are otherwise clear. MEDIASTINUM: No morphologically suspicious or pathologically enlarged lymph nodes are identified with in the mediastinum or bilateral axilla. BONES OF THE CHEST: No acute fracture. Age-appropriate degenerative disease. No lytic or blastic lesions. HEART: The heart is enlarged, without pericardial effusion. IMPRESSION: No pulmonary embolus. No thoracic aortic dissection. Bibasilar atelectasis Reviewed, dictated and finalized at location A.
--- NOTE | 2024-11-21 08:15 | ECG_ITS ---
Test Date: 2024-11-21 08:23:47 Measurements Intervals [place] Rate: 59 P: 22 MI: 167 QRS: 20 QRSD: 90 T: 44 QT: 409 QTc: 406 Interpretive Statements SINUS BRADYCARDIA WITH SINUS ARRHYTHMIA BORDERLINE ECG No previous ECG available for comparison Electronically Signed On 11-21-2024 09:13:27 CDT by Khoi Goins D.O.
--- OUTSIDE RECORDS SUMMARY | 2024-11-21 08:21 | XMS_ITS | Clinical Summary ---
Author Organization [facility] Address [address] [place] [address] Care Team Providers Care Respiratory Clinician Name Role Phone Antonio Downing MD Primary Care Provider + [phone] Source Comments [facility],non-owned Affiliates and Associated Physician Practices is amultiple site organization consisting of ambulatory clinics and hospital sitesin [place], [place], [place] and [place]. This disclosure is being madepursuant to the Care Everywhere program and may not contain all information available regarding this patient. Last updated 18.[facility] [employer] Allergies No known active allergies Medications * Be aware that medications may not be up to date on this document. Alwaysverify current medications with the patient. No known medications Active Problems Problem Noted Date Diagnosed Date Unspecified fracture of right calcaneus, sequela 10/30/2017 Achilles tendinitis of right lower extremity Primary osteoarthritis, right ankle and foot Closed fracture of right calcaneus 09/30/2013 Pain in right ankle 04/25/2012 Family History Medical History Relation Name Comments Cancer Mother Status: d Heart Disease Mother Relation Name Status Comments Mother Social History Tobacco Use Types Packs/Day Years Used Date Smoking Tobacco: Former Alcohol Use Standard Drinks/Week Comments No 0 (1 standard drink = 0.6 oz pur e alcohol) Sex and Gender Information Value Date Recorded Sex Assigned at Not on file 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 Gender Identity Not on file Sexual Orientation Not on file Last Filed Vital Signs Vital Sign Reading Time Taken Comments Blood Pressure 118/88 03/31/2014 11:36 AM CDT Pulse - - Temperature 36.7 C (98.1 F) 05/02/2016 8:37 AM CDT Respiratory Rate - - Oxygen Saturation - - Inhaled Oxygen Concentration - - Weight 90.7 kg (200 lb) 11/05/2018 8:46 AM CDT Height 177.8 cm (5' 10 ) 11/05/2018 8:46 AM CDT Body Mass Index 28.7 11/05/2018 8:46 AM CDT Plan of Treatment Health Maintenance Due Date Last Done Comments COLOGUARD (AGES 45-75) - COL ON CA SCREENING 1954 COLON MONITORING 1954 COLONOSCOPY - COLON CA SCREENING 1954 CT COLONOGRAPHY - COLON CA SCREENING 1954 Colorectal Cancer Screening 1954 FIT - COLON CA SCREENING 1954 FLEX SIG - COLON CA SCREENING 1954 LIPID TESTING 1954 HEPATITIS C SCREENING 02/16/1972 DTAP/TDAP/TD VACCINES (1 - Tdap) 1973 PNEUMOCOCCAL VACCINE 50+ (1 of 1 - PCV) 02/21/2004 ZOSTER VACCINE (1 of 2) 02/21/2004 SCREENING FOR DIABETES 11/05/2018 AAA SCREENING 2019 COVID-19 VACCINE ( - 2023-2 5 season) 2024 DEPRESSION SCREENING 08/07/2024 INFLUENZA VACCINE (Season Ended) 2025 Respiratory Syncytial Virus (RSV) Vaccine Pt: or over 60 yrs (1 - 1-dose 75+ series) 2029 HEPATITIS B VACCINE Aged Out No longe r eligible based on patient's age to complete this topic HIB VACCINE Aged Out No longer eligi ble based on patient's age to complete this topic HPV VACCINE Aged Out No longer eligi ble based on patient's age to complete this topic MENINGOCOCCAL (Group B) VACC INE SHARED DECISION-MAKING Aged Out No longer eligibl e based on patient's age to complete this topic MENINGOCOCCAL GROUPS A/C/Y/W VACCINE Aged Out No longer eligible b ased on patient's age to complete this topic Insurance MEDICAID - OUT OF STATE [facility] Care Teams Respiratory Clinician Relationship Specialty Start Date End Date Antonio Downing MD [address] [place] [address] PCP - General 05/04/15
--- OUTSIDE RECORDS SUMMARY | 2024-11-21 08:21 | XMS_ITS | Data Portability ---
[facility] Address [address] [place] [address] Care Team Providers Care Hospital Plan Administrator Name Role Phone ANTONIO CASON Primary Care Provider Assessment No assessment recorded. Plan of Treatment Reminders Order Date Submit Date Provider Last Modified By Organization Details Last Modified Time Details Appointments ANY 15 2024 09:00A M Antonio Cason MD Not available Not available Not available Lab PSA, total, serum or plasma 2024 025 [facility], [address], [place], [address], 08/23/2024 08:26:13 CMP, serum or plasma 2024 025 [facility], [address], [place], [address], 08/23/2024 08:26:12 lipid panel, serum 2024 025 [facility], [address], [place], [address], 08/23/2024 08:26:11 Referral gastroent erologist referral 2024 025 kassi Root MD, [address], [place], [address], 09/27/2024 15:48:34 urologist referral - Anterior pelvic pain 2023 024 SCARLETT Muhammad MD, [address] [facility] [address], [place], [address], 05/30/2024 16:04:22 ENT surgery referral 2022 023 [email or web address] Manan Webber MD, [address], [place], [address], 04/18/2024 11:37:10 hematolog ist/oncol ogist referral 2020 021 SCARLETT Diaz MD, [address], [place], [address], 11/24/2020 14:33:48 Procedures None recorded. Surgeries None recorded. Imaging US, groin - Bilateral groin- Bilateral groin pain with pain in left greater than right 2023 024 [facility], [address], [place], [address], 11/15/2023 15:00:34 Medication Orders betametha sone dipropion ate 0.05 % topical ointment 2022 023 [facility] [address] [facility], [place], [address], 11/07/2023 12:05:22 Patient TargetsNo targets recorded. Patient Instructions Encounter Date Encounter Id Patient Instructions Last Modified By Organization Details Last Modified Time 07/05/2023 [id number] pneumococcal 20-valent conjugate vaccine Not available 07/05/2023 11:47:40 08/22/2024 [id number] A healthy lifestyle: care instructions [email or web address] Not available 08/22/2024 11:58:17 Reason for Referral Referring Physician: Antonio Cason, Internal Medicine, Encounter Date: 10/15/2020 ENT Surgery Referral for Hea ring disorder Chronic tinnitus. Progressive hearing loss Referring Physician: Antonio Cason, Internal Medicine, Encounter Date: 07/05/2023 Urologist Referral for Pelvi c and perineal pain Anterior pelvic pain Referring Physician: Antonio Cason, Internal Medicine, Encounter Date: 11/07/2023 Supervisor Varnish Referral for History of polyp of colon Surveillance colonoscopy Referring Physician: Antonio Cason, Internal Medicine, Encounter Date: 08/22/2024 Results Created Date Observation Date Name Description Value Unit Range Abnormal Flag Note LastModifiedBy Organization Detail LastModifiedTime 08/22/19 25 08/23/2024 LIPID PANEL cholesterol, total 184 mg/dL 100-19 9 Not Available [facility] ([facility]) [address] [place], [address], 08/23/2024 08:26:11 08/22/19 25 08/23/2024 LIPID PANEL triglyceride s 174 mg/dL 0-149 above high normal Not Available [facility] ([facility]) [address] [place], [address], 08/23/2024 08:26:11 08/22/19 25 08/23/2024 LIPID PANEL HDL cholesterol 42 mg/dL >39 Not Available [facility] ([facility]) [address] [place], [address], 08/23/2024 08:26:11 08/22/19 25 08/23/2024 LIPID PANEL VLDL cholesterol jessa 31 mg/dL 5-40 Not Available [facility] ([facility]) [address] [place], [address], 08/23/2024 08:26:11 08/22/19 25 08/23/2024 LIPID PANEL LDL chol calc ([facility]) 111 mg/dL 0-99 above high normal Not Available [facility] ([facility]) [address] [place], [address], 08/23/2024 08:26:11 08/22/19 25 08/23/2024 COMP. METAB OLIC PANEL (14) glucose 84 mg/dL 70-99 Not Available [facility] ([facility]) [address] [place], [address], 08/23/2024 08:26:12 08/22/19 25 08/23/2024 COMP. METAB OLIC PANEL (14) BUN 19 mg/dL 8-27 Not Available [facility] ([facility]) [address] [place], [address], 08/23/2024 08:26:12 08/22/19 25 08/23/2024 COMP. METAB OLIC PANEL (14) creatinine 1.05 mg/dL 0.76-1 .27 Not Available [facility] ([facility]) [address] [facility] [place], [address], 08/23/2024 08:26:12 08/22/19 25 08/23/2024 COMP. METAB OLIC PANEL (14) eGFR 76 mL/mi n/1.7 3 >59 Not Available [facility] ([facility]) [address] [place], [address], 08/23/2024 08:26:12 08/22/19 25 08/23/2024 COMP. METAB OLIC PANEL (14) BUN/creatini ne ratio 18 10-24 Not Available [facility] ([facility]) [address] [place], [address], 08/23/2024 08:26:12 08/22/19 25 08/23/2024 COMP. METAB OLIC PANEL (14) sodium 141 mmol/ L 134-14 4 Not Available [facility] ([facility]) [address] [place], [address], 08/23/2024 08:26:12 08/22/19 25 08/23/2024 COMP. METAB OLIC PANEL (14) potassium 4.0 mmol/ L 3.5-5. 2 Not Available [facility] ([facility]) [address] [place], [address], 08/23/2024 08:26:12 08/22/19 25 08/23/2024 COMP. METAB OLIC PANEL (14) chloride 102 mmol/ L 96-106 Not Available [facility] ([facility]) [address] [facility] [place], [address], 08/23/2024 08:26:12 08/22/19 25 08/23/2024 COMP. METAB OLIC PANEL (14) carbon dioxide, total 24 mmol/ L 20-29 Not Available [facility] ([facility]) [address] [facility] [place], [address], 08/23/2024 08:26:12 08/22/19 25 08/23/2024 COMP. METAB OLIC PANEL (14) calcium 9.3 mg/dL 8.6-10 .2 Not Available [facility] ([facility]) [address] [facility] [place], [address], 08/23/2024 08:26:12 08/22/19 25 08/23/2024 COMP. METAB OLIC PANEL (14) protein, total 6.9 g/dL 6.0-8. 5 Not Available [facility] ([facility]) [address] [facility] [place], [address], 08/23/2024 08:26:12 08/22/19 25 08/23/2024 COMP. METAB OLIC PANEL (14) albumin 4.5 g/dL 3.9-4. 9 Not Available [facility] ([facility]) [address] [facility] [place], [address], 08/23/2024 08:26:12 08/22/19 25 08/23/2024 COMP. METAB OLIC PANEL (14) globulin, total 2.4 g/dL 1.5-4. 5 Not Available [facility] ([facility]) [address] [facility] [place], [address], 08/23/2024 08:26:12 08/22/19 25 08/23/2024 COMP. METAB OLIC PANEL (14) bilirubin, total 0.4 mg/dL 0.0-1. 2 Not Available [facility] ([facility]) [address] [place], [address], 08/23/2024 08:26:12 08/22/19 25 08/23/2024 COMP. METAB OLIC PANEL (14) alkaline phosphatase 140 IU/L 44-121 above high normal Not Available [facility] ([facility]) [address] [place], [address], 08/23/2024 08:26:12 08/22/19 25 08/23/2024 COMP. METAB OLIC PANEL (14) AST (SGOT) 15 IU/L 0-40 Not Available [facility] ([facility]) [address] [place], [address], 08/23/2024 08:26:12 08/22/19 25 08/23/2024 COMP. METAB OLIC PANEL (14) ALT (SGPT) 15 IU/L 0-44 Not Available [facility] ([facility]) [address] [place], [address], 08/23/2024 08:26:12 08/22/1908/23/2024 PROST ATE-S PECIF IC AG prostate specific Ag 2.0 NG/mL 0.0-4. 0 Celso ECLIA metho dolog y. Accor ding to the Ameri can [employer]o gical Assoc iatio n, Serum PSA shoul d decre ase and remai n at undet ectab le level s after radic al prost atect xiomara. The AUA defin es bioch emica l recur rence as an initi al PSA value 0.2 ng/mL or great er follo wed by a subse quent confi rmato ry PSA value 0.2 ng/mL or great er. Value s obtai chaim with diffe rent assay metho ds or kits canno t be used inter harrington eably . Resul ts canno t be inter prete d as absol anai evide nce of the prese nce or absen ce of dipesh thomson disea se. Not Available [facility] ([facility]) [address], [place], [address], 08/23/2024 08:26:13 11/15/19 24 11/15/2023 US, groin No observ ation record ed. [email or web address] [facility] [address], [place], [address], 11/28/2023 10:38:17 11/15/19 24 11/15/2023 US, groin No observ ation record ed. [email or web address] [facility] [address], [place], [address], 11/28/2023 10:38:17 Result Notes None recorded. Problems Name Problem SNOMED Code Status Onset Date Resolution Date Notes Provider Name and Address Organization Details Recorded Time Skin lesion 91065786 Active 2017 forehead Antonio Cason MD Attn: Brinda macedo,[address] [place], [address], [place] [facility] 8 16:50:14 Soft tissue lesion 860237720 Active 2017 right neck/left axilla Antonio Cason MD Attn: Brinda macedo,[address] [place], [address], [place] [facility] 8 16:50:54 B-cell chronic lymphocytic leukemia Active 2020 Antonio Cason MD Attn: Brinda macedo,[address] [place], [address], [place] [facility] 1 11:16:19 Active immunizatio n Active 2020 Antonio Cason MD Attn: Brinda macedo,[address] [place], [address], [place] [facility] 11:19:19 Psoriasifor m eczema 922515723 Active 2022 Antonio Cason MD Attn: Brinda macedo,[address] [place], [address], [place] [facility] 3 11:32:41 Low back strain 576829466 Active 2022 Antonio Cason MD Attn: Brinda macedo,[address] [facility], [place], [address], [place] [facility] 3 11:34:48 Hearing disorder 469872774 Active 2022 Antonio Cason MD Attn: Brinda macedo,[address] [facility], [place], [address], [place] [facility] 3 11:38:35 B-cell chronic lymphocytic leukemia variant 203746857 Active 2022 Antonio Cason MD Attn: Brinda macedo,[address] [place], [address], [place] [facility] 3 11:43:34 Pelvic and perineal pain 162408326 Active 2023 Antonio Cason MD Attn: Brinda macedo,[address] [facility], [place], [address], [place] [facility] 4 12:51:42 Suprapubic pain 212542877 Active 2023 Antonio Cason MD Attn: Brinda macedo,[address] [place], [address], [place] [facility] 4 17:43:00 Inguinal hernia 601705277 Active 2023 Antonio Cason MD Attn: Brinda macedo,[address] [place], [address], [place] [facility] 4 04:56:02 History of polyp of colon 965035175 Active 2024 Antonio Cason MD Attn: Brinda macedo,[address] [place], [address], [place] [facility] 5 10:42:45 Screening for malignant neoplasm of prostate Active 2024 Antonio Cason MD Attn: Brinda macedo,[address] [facility] [place], [address], [facility] - [facility] 5 10:46:02 Adult health examination Active 2024 Antonio Cason MD Attn: Brinda macedo,[address] [facility], [place], [address], [facility] - [facility] 5 10:46:50 Abnormal weight loss 272607259 Active Antonio Cason MD Attn: Brinda macedo,[address] [facility], [place], [address], [facility] - [facility] 5 12:20:24 Problem Notes None recorded. Procedures Surgical History Date Name Laterality Status Provider Name and Address Organization Details Recorded Time 8 EXCISION, BENIGN LESION INCLUDING MARGINS, FACE, EARS, EYELIDS, NOSE, LIPS, MUCOUS MEMBRANE (SURG) completed Dharmesh Malik MD Attn: Accounting,[address] [facility], [place], [address], [facility] - [facility] 05/02/2018 06:56:08 Amputation completed Ezra Mcadams [place] - [facility] 02/25/2015 11:12:35 Imaging Results Imaging Date Name Status LastModified by Organiz ation Details LastModified Time 11/15/2023 , groin completed sita [facility] [address], [place], [address], 11/28/2023 10:38:17 11/15/2023 US, groin completed [facility] [address], [place], [address], 11/28/2023 10:38:17 Procedure Notes None recorded. Medical Equipment None Reported. Allergies No known drug allergies Medications Name Sig Start Date Stop Date Status Note LastModified by Organization Details LastModified Time hydrocodon e 5 mg-acetami nophen 325 mg tablet 10/14 completed Not Available Not Available Not Available sulfametho xazole 800 mg-trimeth oprim 160 mg tablet 10/14 completed Not Available Not Available Not Available tramadol 50 mg tablet 10/14 completed Not Available Not Available Not Available oxycodone- acetaminop hen 5 mg-325 mg tablet TAKE 1 TABLET BY MOUTH EVERY 4 TO 6 HOURS NEEDED FOR PAIN 07/05 completed Not Available Not Available Not Available DOK 100 mg capsule 10/14 completed Not Available Not Available Not Available methylpred nisolone 4 mg tablets in a dose pack 11/06 completed Not Available Not Available Not Available oxybutynin chloride 5 mg tablet 10/14 completed Not Available Not Available Not Available betamethas one dipropiona te 0.05 % topical ointment APPLY A THIN LAYER TOPICALL Y TO THE AFFECTED AREA(S) TWICE DAILY 11/06 completed Not Available Not Available Not Available tadalafil 5 mg tablet TAKE 1 TABLET BY MOUTH ONCE DAILY 08/22 completed caused pelvic pain Not Available Not Available Not Available Vitals Date Recorded Body height Provider Name an d Address Organization Details Last Updated DateTime 10/15/2020 177.8 cm Jenn Winters MA [facility] 1 10:30:38 Date Recorded Body height Body mass index (BMI) Body weight Heart rate Oxygen saturation Oxygen saturation in Arterial blood by Pulse oximetry Systolic blood pressure Diastolic blood pressure Provider Name and Address Organization Details Last Updated DateTime 3 177.8 cm 26.8 kg/m2 44062.7 7 g 75 /min 100 % 100 % 140 mm[Hg] 70 mm[Hg] Rosario Quigley MA [facility] 3 11:19:16 Date Recorded Body height Body mass index (BMI) Body weight Oxygen saturation Oxygen saturation in Arterial blood by Pulse oximetry Body temperature Heart rate Systolic blood pressure Diastolic blood pressure Provider Name and Address Organization Details Last Updated DateTime 4 177.8 cm 26.8 kg/m2 71819.7 7 g 99 % 99 % 98 [degF] 67 /min 124 mm[Hg] 76 mm[Hg] Jenn Winters MA [place] - [facility] 4 12:18:13 Date Recorded Body height Body mass index (BMI) Body weight Heart rate Oxygen saturation Oxygen saturation in Arterial blood by Pulse oximetry Systolic blood pressure Diastolic blood pressure Provider Name and Address Organization Details Last Updated DateTime 4 177.8 cm 27.7 kg/m2 95878.3 3 g 70 /min 99 % 99 % 124 mm[Hg] 74 mm[Hg] Jenn Winters MA [facility] 4 10:35:27 Date Recorded Body height Body mass index (BMI) Body weight Heart rate Oxygen saturation Oxygen saturation in Arterial blood by Pulse oximetry Systolic blood pressure Diastolic blood pressure Provider Name and Address Organization Details Last Updated DateTime 5 177.8 cm 27.6 kg/m2 96884.1 7 g 68 /min 99 % 99 % 123 mm[Hg] 79 mm[Hg] Jeremy Hamilton MA [facility] 5 10:08:53 Social History Question Answer Notes LastModified by Organizat ion Details LastModified Time Tobacco Smoking Status Never Smoker Jeremy Hamilton MA null, [facility] 08/22/2024 10:05:39 Do You Have An Advance Directive? No Information not available 08/22/2024 What Is Your Level Of Alcohol Consumption? None Information not available 02/25/2015 Auto Related Injury? No [email or web address] Information not available 09/26/2017 Are You Blind Or Do You Have Difficulty Seeing? No Information not available 08/22/2024 What Is Your Level Of Caffeine Consumption? Heavy Information not available 02/25/2015 Are You Currently Employed? No Retired Information not available 08/22/2024 Are You Deaf Or Do You Have Serious Difficulty Hearing? No Information not available 08/22/2024 What Type Of Diet Are You Following? REGULAR Information not available 08/22/2024 What Was The Date Of Your Most Recent Tobacco Screening? 08/22/2024 Information not available 08/22/2024 What Is Your Relationship Status? Information not available 08/22/2024 Do You Use Your Seat Belt Or Car Seat Routinely? Yes Information not available 08/22/2024 Do You Feel Stressed (tense, Restless, Nervous, Or Anxious, Or Unable To Sleep At Night)? [id number] Information not available 08/22/2024 Has Tobacco Cessation Counseling Been Provided? No [email or web address] Information not available 07/05/2023 Do You Or Have You Ever Used Any Other Forms Of Tobacco Or Nicotine? No [email or web address] Information not available 11/07/2023 Sex: Male Functional Status Question Answer Note LastModified by Organizat ion Details LastModified Time Are you able to care for yourself? Yes Information not available 08/22/2024 What is your exercise level? Occasional Information not available 08/22/2024 Mental Status None recorded. Family History Relationship Description Onset Age of this Age Resolved Age Notes LastModified by Organization Details LastModified Time Mother Heart disease Not available 2014 12:20:25 Mother Malignant tumor of thyroid gland [email or web address] Not available 2014 12:20:25 Maternal Grandmother Diabetes mellitus [email or web address] Not available 2014 12:20:25 Medical History No medical history recorded. Immunizations Vaccine Type Date Status Note Provider Nam e and Address Organization Details Recorded Time Influenza, high-dose, quadrivalent, PF 1 completed JOY Oconnell, [place] - [facility] 03/25/2024 10:35:05 COVID-19, mRNA, LNP-S, PF, 100 mcg/0.5mL dose or 50 mcg/0.25mL dose 1 completed JOY O[place], [place] [facility] 03/25/2024 10:35:05 COVID-19 vaccine, vector-nr, rS-Ad26, PF, 0.5 mL 1 completed Jenn Winters [place] null, [place] - [facility] 03/25/2024 10:35:05 Pneumococcal conjugate PCV20, polysaccharide [id number] conjugate, adjuvant, PF 3 completed Rosario Quigley [place] null, [place] [facility] 07/05/2023 14:44:39 Influenza, split virus, trivalent, preservative 5 completed JOY Shields, [place] - [facility] 08/22/2024 11:25:14 Past Encounters Encounter ID Performer Location Encounter Start Date Encounter Closed Date Diagnosis/Indication Diagnosis SNOMED-CT Code Diagnosis ICD10 Code Diagnosis Note [id number] Annita Khalil (Adult Med) [address] [place], [place] [phone] 02/25/2015 10:45:46 02/25/2015 13:44:24 Abnormal weight loss 064569751 Screening for malignant neoplasm of prostate 690809166 Screening for malignant neoplasm of colon 314029005 [id number] MD Simran Dominique (Adult Med) [address] [place] [address] 08/31/2017 16:00:21 08/31/2017 17:00:38 Skin lesion 75342865 L98.9 Soft tissue lesion 86214 3001 M79.9 [id number] Sharda Preston MD [facility] [address] [place] [phone] 09/26/2017 12:48:26 10/11/2017 08:50:13 Lesion of skin of face 8623996411 06 L98.9 Mass of axilla 001096182 R22.2 Mass of neck 273680354 R 22.1 [id number] Grant Pathak MD [facility] [address] [place] [address] 03/01/2018 10:07:50 03/08/2018 11:58:13 Mass of scalp 617473705 R22.0 rule out basal cell cancer [id number] Grant Pathak MD [facility] [address] [place] [address] 05/01/2018 14:20:14 05/07/2018 10:02:49 Postoperative visit 821418142 Z09 Dx- Pore of martita [id number] MD Simran Dominique (Adult Med) [address] [place] [address] 10/09/2019 16:36:42 10/10/2019 11:56:13 Soft tissue lesion 492177929 M79.9 Observe Skin lesion 37582051 L98 .9 observe [id number] JOY Oconnell (Adult Med) [address] [place] [address] 10/14/2020 08:52:50 10/14/2020 11:24:09 [id number] MD Simran Dominique (Adult Med) [address] [place] [address] 10/15/2020 08:23:14 10/16/2020 20:31:07 B-cell chronic lymphocytic leukemia 674247585 C91.10 Active immunization 3387 9002 Z23 [id number] MD Simran Dominique (Adult Med) [address] [place] [address] 07/05/2023 11:07:41 07/07/2023 13:04:24 Psoriasiform eczema 161981056 L30.8 Low back strain 11311626 1 S39.012A Continue acetaminop hen and ibuprofen Hearing disorder 5471478 05 H91.90 Active immunization 3387 9002 Z23 Wants to wait to do other vaccinatio ns B-cell chr onic lymphocytic leukemia variant 540906748 C91.10 F/U oncology as scheduled [id number] Antonio Cason MD [facility] (Adult Med) [address] [place] [address] 11/07/2023 11:21:26 11/10/2023 09:58:39 Pelvic and perineal pain 729271838 R10.2 Lower abdominal pain 545 57771 R10.30 [id number] [facility] [address] [place] [phone] 03/25/2024 10:07:56 03/26/2024 12:56:44 B-cell chronic lymphocytic leukemia variant 112166954 C91.10 F/U oncology as scheduled Pelvic and perineal pain 116310298 R10.2 F/U urology [id number] JOY Shields (Adult Med) [address] [place] [phone] 08/22/2024 09:48:21 08/28/2024 16:36:14 Overweight 562529660 E66.3 B-cell chr onic lymphocytic leukemia variant 085200112 C91.10 F/U oncology as scheduled Pelvic and perineal pain 654650782 R10.2 F/U urology History of polyp of colon 487730883 Z86.0100 Screening for malignant neoplasm of prostate 711559232 Z12.5 Adult heal th examination 791288337 Z00.00 Active immunization 3387 9002 Z23 Health Concerns Section Related Observation LastModified by Organization Detai ls LastModified Time None Recorded Concern Status LastModified by Organization Details LastModified Time None Recorded Advance Directives Directive N: Payers Encounter Date Sequence Insurance Name Policy Number Policy Queen Covered Member ID Queen Member ID Guarantor Name 10/15/2020 1 [place] [facility] Raghavendra Fanning [id number] Raghavendra Fanning 10/15/2020 2 [place] Raghavendra P Fanning [id number] Raghavendra Fanning 07/05/2023 1 [employer] - [place] (MEDICARE REPLACEMENT/AD VANTAGE - HMO) [id number] Raghavendra P Fanning [id number] Raghavendra Fanning 11/07/2023 1 [employer] - [place] (MEDICARE REPLACEMENT/AD VANTAGE - HMO) [id number] Raghavendra P Fanning [id number] Raghavendra Fanning 11/07/2023 2 [place] WHEN MED[place]ARE OR MEDICARE REPLACEMENT PRIMARY) Raghavendra Fanning [id number] Raghavendra Fanning 03/25/2024 1 [employer] - [place] (MEDICARE REPLACEMENT/AD VANTAGE - HMO) [id number] Raghavendra P Fanning [id number] Raghavendra Fanning 03/25/2024 2 [place] OR [place]IC[place] REPLACEMENT PRIMARY) Raghavendra Fanning [id number] Raghavendra Fanning 08/22/2024 1 [employer] - [place] (MEDICARE REPLACEMENT/AD VANTAGE - HMO) [id number] Raghavendra P Fanning [id number] Raghavendra Fanning 08/22/2024 2 [place] WHEN [place] OR MEDIC[place] REPLACEMENT PRIMARY) Raghavendra Fanning [id number] Raghavendra Fanning Notes Date Note Type Note Provider Name and Address Organization Details Recorded Time 10/15/2020 text/html Telephone visit due to Covid-19 precautions. He needs referral for his oncologist. He also needs updated vaccines Antonio Cason MD Attn: Accounting,[address] [facility], [place], [address], [place] [facility] 10/15/2020 11:26:16 07/05/2023 text/html Pain in lower ba ck and right groin two weeks ago. Has improved . Has rash in multiple areas in past week. Started on his face and spread to other areas. Rash is beginning to improve. Has trouble hearing. Tinnitus for several years. Requests pneumonia vaccine Antonio Cason MD Attn: Accounting,[address] [facility], [place], [address], [place] [facility] 07/05/2023 12:43:05 11/07/2023 text/html Pain in both groins, mainly on left for the past four months. Discomfort present if clothes are too tight. Pain started when he jumped forward with legs outstretched. Painful after intercourse Antonio Cason MD Attn: Accounting,[address] [facility], [place], [address], [place] [facility] 11/07/2023 13:03:53 03/25/2024 text/html Here for a f/u. Has seen urologist and experienced groin increased pain after he started tadalafil 5 mg/d. He stopped med and will discuss with urologist. Saw GS who indicated that IH were too small for surgical intervention Antonio Cason MD Attn: Accounting,[address] [facility], [place], [address], [place] [facility] 03/25/2024 11:06:31 08/22/2024 text/html Here for routine f/u. His pelvic pain has improved. Followed by urology and hematology. Wants flu vaccine today. Currently only on vitamin supplements Jeremy Hamilton MA [facility], [place] - SIF 08/22/2024 11:25:18
--- OUTSIDE RECORDS SUMMARY | 2024-11-21 08:21 | XMS_ITS | Continuity of Care Document ---
Author Organization [facility] Address [address] [place] [address] Phone Care Team Providers Care Fork Assembler Name Role Phone Lupe Heaton Unavailable Unavailable Advance Directives Directive Yes / No Effective Date File Name No Information Encounters Encounter Description Practice Location Reason(s) For Visit Diagnoses Date Provider Providers Copied on Encounter [facility], [id number] [place] [address] [address], [place], [place], [id number], [place] tel:[phone] [facility] No Information Apr-2 7-200 1 Florina Andrade. [address] [facility] , [address], [place], [address], [place]. tel:[phone] Family History Family Member Type Diagnosis Age At Onset No Information Payers Payer name Insurance type Covered republican ID Authoriza tion(s) No Information Social History Type Description Quantity Date Captured Comments Sex Male Smoking Status No Information Chief Complaint And Reason For Visit No Information Reason For Referral Reason For Referral No Information History Of Present Illness Encounter Date Complaint History Of Prese nt Illness No Information Functional Status Date Functional Assessmen t No Information Instructions Date Instruction Additional Infor mation No Information Assessments Type Assessment Date No Information Patient Care Teams Name Effective Dates (start - stop) Status Members No Information
--- OUTSIDE RECORDS SUMMARY | 2024-11-21 08:21 | XMS_ITS | Data Portability ---
Author Organization [employer], Main Office Address [address] [place] [address] Care Team Providers Care Transitional Care Liaison Name Role Phone NIMO CASON Referring Provider Assessment No assessment recorded. Plan of Treatment Reminders Order Date Submit Date Provider Last Modified By Organization Details Last Modified Time Details Appointments None record ed. Lab None record ed. Referral None record ed. Procedures None record ed. Surgeries None record ed. Imaging None record ed. Medication Orders None record ed. Patient TargetsNo targets recorded. Patient InstructionsNo instructions recorded. Reason for Referral None Reported. Problems Name Problem SNOMED Code Status Onset Date Resolution Date Notes Provider Name and Address Organization Details Recorded Time Bilateral pain of inguinal region [id number] 102 Active 2023 Jesse momin MD [address] [place] [address], [place], [address] [facility] [employer] 4 14:23:53 Notes:Some problems listed i n Documents: #[id number], #[id number], #[id number] could not be added to this patient's chart. Please review these documents and add these problems to the patient's chart manually as needed. Problem Notes None recorded. Medical Equipment None Reported. Allergies No known drug allergies Medications Name Sig Start Date Stop Date Status Note LastModified by Organization Details LastModified Time methylprednis olone 4 mg tablets in a dose pack active Not Available Not Available No t Available betamethasone dipropionate 0.05 % topical ointment APPLY A THIN LAYER TOPICALLY TO THE AFFECTED AREA(S) TWICE DAILY active Not Available Not Available No t Available Vitals Date Recorded Heart rate Body temperature Oxygen saturation Oxygen saturation in Arterial blood by Pulse oximetry Body height Body mass index (BMI) Body weight Respiratory rate Systolic blood pressure Diastolic blood pressure Provider Name and Address Organization Details Last Updated DateTime 4 83 /min 97.9 [degF] 97 % 97 % 177.8 cm 25.8 kg/m2 96839.6 3 g 16 /min 130 mm[Hg] 80 mm[Hg] Ashwini Manriquez [place] - [facility] 4 11:34:39 Social History None recorded. Functional Status None recorded. Mental Status None recorded. Family History Relationship Description Onset Age of this Age Resolved Age Notes LastModified by Organization Details LastModified Time Brother Hernia of abdominal cavity harvey Not available 09/2023 11:35:32 Medical History Condition Response ARTHRITIS Y Past Encounters Encounter ID Performer Location Encounter Start Date Encounter Closed Date Diagnosis/Indication Diagnosis SNOMED-CT Code Diagnosis ICD10 Code Diagnosis Note [id number] Jesse taveras MD [facility] General Surgery [address] [facility] [place] [address] 12/07/2023 11:29:05 02/23/2024 04:00:29 Bilateral pain of inguinal region [id number] R10.31 R10.32 Health Concerns Section Related Observation LastModified by Organization Detai ls LastModified Time None Recorded Concern Status LastModified by Organization Details LastModified Time None Recorded Advance Directives Directive None Recorded Payers Encounter Date Sequence Insurance Name Policy Number Policy Queen Covered Member ID Queen Member ID Guarantor Name 12/07/2023 1 [employer] - [place] (MEDICARE REPLACEMENT/AD VANTAGE - HMO) [id number] Raghavendra Haddad [id number] Raghavendra Haddad 12/07/2023 2 [place] WHEN MEDICARE OR MEDICARE REPLACEMENT PRIMARY) Raghavendra Haddad [id number] Raghavendra Haddad
--- OUTSIDE RECORDS SUMMARY | 2024-11-21 08:21 | XMS_ITS | Clinical Summary ---
Author Organization [facility] Address [address] [facility] [place] [address] Care Team Providers Care Engraving Patternmaker Name Role Phone Antonio Downing MD Primary Care Provider Allergies No known active allergies Medications No known medications Active Problems Problem Noted Date Diagnosed Date Kidney stone 06/17/2020 Chronic lymphocytic leukemia of B-cell type not having achieved remission 02/12/2020 Encounters Date Type Department Care Team Description 11/05/2024 External Device Data STL ABSTRACTION Provider, Abstract 10/23/2024 External Device Data ST[facility] ABSTRACTION Provider, Abstract 10/15/2024 External Device Data ST[facility] ABSTRACTION Provider, Abstract 10/14/2024 External Device Data ST[facility] ABSTRACTION Provider, Abstract 10/14/2024 External Device Data STL ABSTRACTION Provider, Abstract 09/24/2024 External Device Data STL ABSTRACTION Provider, Abstract 08/28/2024 External Device Data STL ABSTRACTION Provider, Abstract 08/27/2024 External Device Data STL ABSTRACTION Provider, Abstract from Last 3 Months Immunizations Immunization Administration Dates Next Due (KIKI) COVID-19 VACCINE - EMERGENCY USE AUTHORIZATION, AD26,COV2S(PF) 0.5 ML IM SUSP 10/05/2020 (SPIKEVAX) (12 YRS UP PRIMAR Y SERIES) COVID-19 VACCINE - MRNA-1273(PF) 100 MCG/0.5 ML IM SUSP 06/30/2021 Family History Medical History Relation Name Comments Heart Disease Brother 1 Heart Disease Father Cancer Mother Heart Disease Mother Cancer Sister 1 Heart Disease Sister 1 Diabetes Sister 2 Heart Disease Sister 2 Relation Name Status Comments Brother 1 Alive Brother 2 Alive Father Mother Sister 1 Sister 2 Sister 3 Alive Social History Tobacco Use Types Packs/Day Years Used Date Smoking Tobacco: Never Smokeless Tobacco: Never Tobacco Cessation:Counseling Given: Not Answered Alcohol Use Standard Drinks/Week Comments Yes 0 (1 standard drink = 0.6 oz pur e alcohol) Sex and Gender Information Value Date Recorded Sex Assigned at Not on file Legal Sex Male 2:31 PM CDT Gender Identity Not on file Sexual Orientation Not on file Last Filed Vital Signs Vital Sign Reading Time Taken Comments Blood Pressure 121/68 07/01/2024 10:15 AM SCALE INSTALLER Pulse 62 07/01/2024 10:15 AM SCALE INSTALLER Temperature 36.7 C (98 F) 07/01/2024 10:15 AM SCALE INSTALLER Respiratory Rate 16 07/01/2024 10:15 AM SCALE INSTALLER Oxygen Saturation 96% 07/01/2024 10:15 AM SCALE INSTALLER Inhaled Oxygen Concentration - - Weight 86.6 kg (191 lb) 07/01/2024 10:15 AM SCALE INSTALLER Height 177.8 cm (5' 10 ) 02/24/2023 10:58 AM CDT Body Mass Index 27.41 02/24/2023 10:58 AM CDT Plan of Treatment Upcoming Encounters Date Type Department Care Team (Late st Contact Info) Description 12/31/2024 11:00 AM CDT Office Visit [facility] Oncology and Hematology - [address] [facility] [address] [place] [address] Jaswinder Diaz MD [address] [facility] [address] [place] [address] Health Maintenance Due Date Last Done Comments Pre-Diabetes and Diabetes Screening 1954 DTAP/TDAP/TD VACCINES (1 - Tdap) 1973 PNEUMOCOCCAL VACCINE 50+ YEA RS (1 of 2 - PCV) 1973 ZOSTER VACCINE (1 of 2) 1973 COLORECTAL SCREENING 1999 Colorectal Cancer Screening 1999 FIT-DNA Q 3 years 1999 FIT/FOBT Q 1 year 1999 Flex Sig/CT Colonography Q 5 years 1999 RSV VACCINE (60+ or ) (1 - Risk 60-74 years 1-dose series) 2014 INFLUENZA VACCINE (#1) 2024 COVID-19 Vaccine ( season) 2024, 10/05/2020 Medical Devices Implanted Type Area Industrial Technology Education Teacher Device Identifier Shelf Expiration Date Model / Serial / Lot Port Powerport Trini 8fr Mri [id number] - [id number] Implanted:Qty : 1 on 09/29/2021 by Juan Francisco Louise MD at [facility] Port Right: Chest [employer] [id number] 12/04/2022 [id number] / / [id number] Pins Description:pins in right an kle/ heel Insurance [place] Member Subscriber Plan / Payer (Ef fective 2021-Present) Name:Raghavendra Haddad Relation to Subscriber:Self Name:Raghavendra Haddad Payer ID:Not on file Group ID:Not on file Type:Medicaid Address: [address] [facility] Address: [facility] [id number] [place] [address] [place] AETNA HMO MCR Advance Directives For more information, please contact: [phone] * Full Code (Latest Code Status on File) Date Activated Date Inactivated Comments 09/29/2021 4:58 PM 09/29/2021 8:12 PM * Full Code Date Activated Date Inactivated Comments 09/29/2021 12:54 PM 09/29/2021 4:58 PM Care Teams Engraving Patternmaker Relationship Specialty [place] [address] [place] [phone] PCP - General Gastroenterology 05/10/19
[2024-11-21 08:42] LABS: Basophils Absolute Auto 0.1 K/mm3 (0.0-0.1); Basophils Percent Auto 0.6 % (0.2-1.2); Eosinophils Absolute Auto 0.2 K/mm3 (0-0.3); Eosinophils Percent Auto 1.4 % (0-4.4); Hematocrit 43.6 % (42.0-52.0); Hemoglobin 14.8 g/dL (14.0-18.0); Immature Granulocyte Absolute 0.04 K/mm3 (0.00-0.031); Immature Granulocyte Percent A 0.4 % (0-0.5); Lymphocytes Percent Auto 41.6 % (18.3-44.2); Mean Corpuscular HGB Conc 33.9 g/dl (32-36); Mean Corpuscular Hemoglobin 32.7 pg (26-34); Mean Corpuscular Volume 96.2 fl (80-100); Mean Platelet Volume 8.2 fl (7.4-10.4); Monocytes Absolute Auto 0.7 K/mm3 (0.1-0.6); Monocytes Percent Auto 6.7 % (2.6-8.5); Neutrophils Absolute Auto 5.3 K/mm3 (1.3-6.7); Neutrophils Percent Auto 49.3 % (45.5-73.1); Platelet Count Result 274 k/mm3 (150-375); Red Blood Count 4.53 M/mm3 (4.6-6.20); Red Cell Distribution Width 12.8 % (11.5-14.5); White Blood Count 10.8 K/mm3 (4.5-10.0)
[2024-11-21] MEDS: ASPIRIN 81 MG CHEWABLE TABLET 324 MG PO (08:49)
[2024-11-21 08:51] LABS: Alanine Aminotransferase 27 U/L (6-50); Albumin Level 4.4 g/dL (3.5-5.1); Alkaline Phosphatase 153 U/L (38-126); Anion Gap 11 mmol/L (4-12); Aspartate Amino Transferase 33 U/L (17-59); Bilirubin,Total 0.9 mg/dL (0.2-1.3); Blood Urea Nitrogen 17 mg/dL (9-20); Calcium 9.1 mg/dL (8.4-10.2); Carbon Dioxide 23 mmol/L (22-30); Chloride 105 mmol/L (98-107); Estimated Glomerular Filt Rate > 60; Glucose 110 mg/dL (65-110); Lipase 89 U/L (23-300); Potassium 3.9 mmol/L (3.4-5.0); Sodium 139 mmol/L (137-145)
[2024-11-21 08:52] LABS: INR 0.9; Prothrombin Time 12.4 Seconds (11.1-14.7)
[2024-11-21 08:53] LABS: Partial Thromboplastin Time 24.6 Seconds (22.3-36.8)
[2024-11-21 09:03] LABS: Troponin I < 0.012 ng/mL (0.000-0.034)
[2024-11-21 09:08] LABS: Atypical Lymphocytes Present; Platelet Estimate Adequate (Adequate); Schistocytes None Seen; Smudge Cells PRESENT
--- NOTE | 2024-11-21 09:40 | ED_ITS ---
HPI - Chest Pain General Chief Complaint: Chest Pain Stated Complaint: CP Time Seen by Provider: 11/21/24 09:01 History of Present Illness HPI narrative: 69-year-old male with history of CLL presents to the emergency department for intermittent chest pain for the past few days. Patient states that changes Centers chest and radiates to his neck. He states it has been occurring in the morning when he wakes up, lasted few minutes and self resolves. Pain is associated dyspnea. States he normally does not have any more symptoms throughout the day, however he does symptoms couple days ago while mowing the lawn. He denies history of CAD, prior stents, CVA. He does not smoke. He does endorse family history of cardiac disease. He denies cough or congestion, fever, abdominal pain, current chest pain. Patient is evaluated by R.N. at 0850 and the patient was in his normal state of health and resting comfortably in exam bed. Registration to patient's room and notified nurse that the patient seemed altered and was having difficulty finding his words. I immediately evaluated the patient and did appreciate expressive aphasia with no other neurologic deficits. Patient states he cannot think of his words. Denies head injury or trauma, vision changes, focal numbness or weakness. Denies current chest pain. Related Data Home Medications ?Medication ?Instructions ?Recorded ?Confirmed ?Last Taken ?Type cyanocobalamin (vitamin B-12) 2,500 mcg PO DAILY 10/24/22 10/31/22 Unknown History 2,500 mcg tablet vitamin E 100 unit tablet 125 unit PO DAILY 10/24/22 10/31/22 Unknown History Allergies Allergy/AdvReac Type Severity Reaction Status Date / Time No Known Allergies Allergy Verified 10/31/22 07:47 Review of Systems 2 Review of Systems: All systems reviewed & are unremarkable except as noted in HPI and below PMFSH Past Medical History Medical History CLL (chronic lymphocytic leukemia) remission Social History Social History Smoking status: Never smoker Living arrangements: with family Spiritual care concerns: No Exam 2 Narrative: GENERAL: Anxious-appearing, well-nourished, and in no acute distress. HEAD: Normocephalic, atraumatic. EYES: EOMI. ENT: Nares clear, no rhinorrhea or epistaxis. Mucous membranes moist. NECK: Supple. CHEST: Clear to auscultation. No respiratory distress. HEART: Regular rate and rhythm. No murmur heard. Normal peripheral pulses. ABDOMEN: Soft, nontender, nondistended, normal active bowel sounds. EXTREMITIES: Normal range of motion. No edema. SKIN: Warm, dry, no rash. NEURO: No focal deficits. Alert and oriented x3 - answers 2022 and 2023 for the year, answers all other questions appropriately. Cranial nerves 2-12 are intact. Strength is 5/5 in BUE and BLE. Sensation intact throughout. Normal [id number]. No pronator drift. No dysarthria. Expressive aphasia present NIH Stroke Scale/Score (NIHSS) from [employer] on 11/21/2024 All calculations should be rechecked by clinician prior to use RESULT SUMMARY: 1 points NIH Stroke Scale INPUTS: 1A: Level of consciousness ?> 0 = Alert; keenly responsive 1B: Ask month and age ?> 0 = Both questi ons right 1C: 'Blink eyes' & 'squeeze hands' ?> 0 = Performs both tasks 2: Horizontal extraocular movements ?> 0 = Normal 3: Visual bolden ?> 0 = No visual loss 4: Facial palsy ?> 0 = Normal symmetry 5A: Left arm motor drift ?> 0 = No drift for 10 seconds 5B: Right arm motor drift ?> 0 = No drif t for 10 seconds 6A: Left leg motor drift ?> 0 = No drift for 5 seconds 6B: Right leg motor drift ?> 0 = No drif t for 5 seconds 7: Limb Ataxia ?> 0 = No ataxia 8: Sensation ?> 0 = Normal; no sensory l oss 9: Language/aphasia ?> 1 = Mild-moderate aphasia: some obvious changes, without significant limitation 10: Dysarthria ?> 0 = Normal 11: Extinction/inattention ?> 0 = No abn ormality Course Vital Signs Vital signs: Vital Signs Temperature 98.1 F 11/21/24 08:17 Pulse Rate 59 L 11/21/24 08:17 Respiratory Rate 18 11/21/24 08:17 Blood Pressure 175/88 H 11/21/24 08:17 Pulse Oximetry 100 11/21/24 08:17 Oxygen Delivery Room Air 11/21/24 08:17 Temperature 98.1 F 11/21/24 08:17 Pulse Rate 65 11/21/24 10:45 Respiratory Rate 15 11/21/24 10:45 Blood Pressure 159/67 H 11/21/24 10:45 Pulse Oximetry 100 11/21/24 10:45 Oxygen Delivery Room Air 11/21/24 08:50 MDM - Chest Pain MDM Narrative Medical decision making narrative: 69-year-old male presents to emergency department for intermittent chest pain for the past few days. Triage vitals with hypertension of 175/88, otherwise unremarkable. Patient is asymptomatic upon arrival to the ED. RN evaluated the patient at 0850 this morning the patient was in his normal state of health. They were notified by registration that the patient was altered, seemed confused and is having difficulty expressing his words. NIHSS is 1. CT brain immediately obtained which shows no acute intracranial findings. CTA brain carotid shows IMPRESSION: 1. 0% stenosis of the right carotid bulb relative to normal distal artery lumen diameter (NASCET criteria). 2. 25% stenosis of the left carotid bulb relative to normal distal artery lumen diameter. 3. No evident cerebral arterial hemodynamically significant stenosis, aneurysm or thrombosis. EKG shows sinus bradycardia with sinus arrhythmia, ischemic changes. Troponin is undetectable x2. Chest x-ray without acute findings. CTA chest PE shows IMPRESSION: No pulmonary embolus. No thoracic aortic dissection. Bibasilar atelectasis EKG shows sinus bradycardia with a rate of 59 ppm, normal ND interval, normal QRS duration, normal QTC. Troponin undetectable x2. Discussed presentation immediately after my evaluation with our neurologist, Dr. Tian, who advises to call outside hospital for stroke team. Discussed with [facility] stroke team, Dr. Barahona, who advises thrombolytics if patient's deficits are disabling. [facility] does not have any beds available. Discussed with [facility] neurologist, Dr. Saenz, who advises thrombolytics if the patient is a candidate and agreeable. Shared decision making with the patient. Discussed risk and benefits of thrombolytics including permanent disability, hemorrhage and . He would like to move forward with TNK. He has no absolute contraindications. Blood pressure is 159/67. Tenecteplase Administered? Yes, Verbal Informed Consent Obtained from: [Y] Patient: Discussions to obtain informed consent for tenecteplase included: risk of bleeding, including in the brain, that can result in ; benefit of decreased functional disability; as well as alternatives, including no treatment or conservative treatment with antiplatelet therapy Patient accepted to [facility] by Dr. Saenz. He did not have any improvement in his aphasia, nor did he have any progression in his neurologic defecits prior to leaving the ED. Lab Data 11/21/24 08:35 11/21/24 08:35 Labs: Lab Results 11/21/24 11/21/24 11/21/24 Range/Units 08:35 10:09 10:12 WBC 10.8 H (4.5-10.0) K/mm3 RBC 4.53 L (4.6-6.20) M/mm3 Hgb 14.8 (14.0-18.0) g/dL Hct 43.6 (42.0-52.0) % MCV 96.2 (80-100) fl MCH 32.7 (26-34) pg MCHC 33.9 (32-36) g/dl RDW 12.8 (11.5-14.5) % Plt Count 274 (150-375) k/mm3 MPV 8.2 (7.4-10.4) fl Immature Gran % (Auto) 0.4 (0-0.5) % Neut % (Auto) 49.3 (45.5-73.1) % Lymph % (Auto) 41.6 (18.3-44.2) % [place] % (Auto) 6.7 (2.6-8.5) % Eos % (Auto) 1.4 (0-4.4) % Baso % (Auto) 0.6 (0.2-1.2) % Lymph # (Auto) 4.50 H (0.9-3.2) K/mm3 [place] # (Auto) 0.7 H (0.1-0.6) K/mm3 Eos # (Auto) 0.2 (0-0.3) K/mm3 Baso # (Auto) 0.1 (0.0-0.1) K/mm3 Abs Immat Gran (auto) 0.04 H (0.00-0.031) K/mm3 Absolute Neuts (auto) 5.3 (1.3-6.7) K/mm3 Absolute Nucleated RBC 0.000 (0.0-0.012) K/mm3 Band Neutrophils % Not Reportable Nucleated RBC % 0.0 (0.0-0.2) % Atypical Lymphocytes Present Smudge Cells Present Platelet Estimate Adequate (Adequate) Schistocytes None seen PT 12.4 (11.1-14.7) Seconds INR 0.9 APTT 24.6 (22.3-36.8) Seconds Sodium 139 (137-145) mmol/L Potassium 3.9 (3.4-5.0) mmol/L Chloride 105 (98-107) mmol/L Carbon Dioxide 23 (22-30) mmol/L Anion Gap 11 (4-12) mmol/L BUN 17 (9-20) mg/dL Creatinine 1.01 (0.7-1.3) mg/dL Estim Creat Clear Calc Not Reportable Estimated GFR > 60 (59 - ) Glucose 110 (65-110) mg/dL POC Capillary Glucose 99 (65-105) mg/dl Calcium 9.1 (8.4-10.2) mg/dL Total Bilirubin 0.9 (0.2-1.3) mg/dL AST 33 (17-59) U/L ALT 27 (6-50) U/L Alkaline Phosphatase 153 H (38-126) U/L Troponin I < 0.012 (0.000-0.034) ng/mL Total Protein 7.0 (6.3-8.2) g/dL Albumin 4.4 (3.5-5.1) g/dL Lipase 89 (23-300) U/L TSH 1.180 (0.465-4.680) uIU/mL Urine Color Yellow (Yellow) Urine Appearance Clear (Clear) Urine pH 8.0 (5.0-9.0) Ur Specific [place] 1.014 (1.001-1.035) Urine Protein Negative (Negative) mg/dL Urine Glucose (UA) Negative (Negative) mg/dL Urine Ketones 1+ H (Negative) mg/dL Ur Blood (Man) Negative (Negative) Urine Nitrate Negative (Negative) Urine Bilirubin Negative (Negative) Urine Urobilinogen 0.2 (<2.0) mg/dL Leukocyte Esterase Rfl Negative (Negative) EMANUEL/UL Urine Opiates Screen Negative (Negative) Urine Methadone Screen Negative (Negative) Ur Barbiturates Screen Negative (Negative) Ur Phencyclidine Scrn Negative (Negative) Ur Amphetamine Screen Negative (Negative) U Benzodiazepines Scrn Negative (Negative) Urine Cocaine Screen Negative (Negative) U Cannabinoids Screen Positive A (Negative) Critical Care Time Critical Care Time Critical Care Time: Yes Total Critical Care Time: 35 Discharge Plan Discharge Clinical Impression: Expressive aphasia Chest pain Qualifiers: Chest pain type: unspecified Qualified Code(s): R07.9 - Chest pain, unspecified Patient Disposition: Acute Care Hospital Condition: Guarded Prognosis Patient Language: British Prescriptions: No Action vitamin E 100 unit Tablet 125 unit PO DAILY cyanocobalamin (vitamin B-12) 2,500 mcg Tablet 2,500 mcg PO DAILY Follow-up/Referrals: Chang,Antonio Calderon MD [Primary Care Provider] - Quality Stroke Date of last known normal: 11/21/24 Time of last known normal: 08:50 Stroke Scale Stroke Scale 1: 1a Level of consciousness: alert-0 1b Level of consciousness questions: answers both correctly-0 1c Level of consciousness commands: obeys both correctly-0 2 Best gaze: normal-0 3 Visual: no visual loss-0 4 Facial palsy: normal-0 5a Motor: left arm: no drift-0 5b Motor: right arm: no drift-0 6a Motor: left leg: no drift-0 6b Motor: right leg: no drift-0 7 Limb ataxia: absent-0 8 Sensory: normal-0 9 Best language: some loss of fluency-1 10 Dysarthria: normal-0 11 Extinction and inattention: no abnormality-0 Level:: 1 Acute Stroke Pre-Treatment Evaluation Acute Ischemic Stroke Pretreatment Evaluation: Acute Ischemic Stroke Pre- Treatment Evaluation Inclusion Criteria (must answer yes to questions 1 and 2) 1. Age 18 Years Or Older: No 2. Onset Of Stroke Symptoms Well Established To Be Less Than 3 Hours: No 3. Clinical Diagnosis Of Ischemic Stroke Causing Measureable Neurological Deficit And A Non-Contrast Head CT Showing NO Hemorrage: No Contraindications (0-3 Hours) 5. Stroke Or Severe Head Trauma Within Past 3 Months: No 6. Known History Of Intracranial Hemorrage: No 7. Symptoms Or Clinical Presentation Suggestion Of Subarachnoid hemorrhage: No 8. Gastrointestinal Or Urinary Tract hemorrhage Within 21 Days: No 9. Prothrombin Time (TP) Greater Than 15 Seconds or An INR Greater Than 1.7 Or An Elevated Activated Partial Throboplastin Time (aPTT): No 10. Platelet Count <100,000/ml: No 11. Glucose Lower Than 50mg/dl Or Greater than 400mg/dl: No 12. Seizure At Onset Stroke: No 13. Acute Myocardial Infarction Or Post Myocardial Infarction Pericarditis: No 14. Arterial Puncture At A Non-Compressible Site, Biopsy of Internal Organ, Within The Preceding 7 Days: No 15. Major Surgery Or Serious Trauma (Besides Head) In The Previous 14 Days: No 16. Uncontrolled Or Sustained SBP (systolic>185 mmHg) or DBP (diastolic>110 mmHg) Or Requiring Aggressive Treatment To Lower: No 17. : No Contraindications (3-4.5 Hours) 1. Age Less Than 18 or Greater Than 80 years: No 2. Severe Stroke Assessed Clinically (NIHSS Score Greater Than 25): No 3. Combination Or Previous Stroke Or Diabetes Mellitus: No 4. Symptoms Minor Or Rapidly Improving: No
--- NOTE | 2024-11-21 09:41 | PC.NURSE ---
This RN was called to room by registration. Pt states he is confused and having a hard time answering questions. Upon assessment EDP to room.
--- OUTSIDE RECORDS SUMMARY | 2024-11-21 09:51 | XMS_ITS | Clinical Summary ---
[facility] Address [address] [facility] [place] [address] Care Team Providers Care Canceling Machine Operator Name Role Phone Antonio Downing MD Primary [...] Comments Blood Pressure 121/68 07/01/2024 10:15 AM DOUBLE SPINDLE SHAPER OPERATOR Pulse 62 07/01/2024 10:15 AM DOUBLE SPINDLE SHAPER OPERATOR Temperature 36.7 C (98 F) 07/01/2024 10:15 AM DOUBLE SPINDLE SHAPER OPERATOR Respiratory Rate 16 07/01/2024 10:15 AM DOUBLE SPINDLE SHAPER OPERATOR Oxygen Saturation 96% 07/01/2024 10:15 AM DOUBLE SPINDLE SHAPER OPERATOR Inhaled Oxygen Concentration - - Weight 86.6 kg (191 lb) 07/01/2024 10:15 AM DOUBLE SPINDLE SHAPER OPERATOR Height 177.8 cm (5' 10 ) 02/24/2023 10:58 AM CDT Body Mass Index 27.41 02/24/2023 10:58 AM CDT Plan of Treatment Upcoming Encounters Date Type Department Care Team (Late st Contact Info) Description 12/31/2024 11:00 AM CDT Office Visit [facility] Oncology and Hematology - [place] [address] [facility] [address] [place] [address] Jaswinder Diaz MD [address] [facility] [address] [place] [address] Health Maintenance Due Date Last [...] 2024, 10/05/2020 Medical Devices Implanted Type Area Tax Form Preparer Device Identifier Shelf Expiration Date Model / Serial / Lot Port Powerport Trini 8fr Mri [id number] - [id number] Implanted:Qty : 1 on 09/29/2021 by Juan Francisco Louise MD at [facility] Port Right: Chest [employer] [id number] 12/04/2022 [id number] / / [id number] Pins Description:pins in right an kle/ heel Insurance [place] Member Subscriber Plan / Payer (Ef fective 2021-Present) Name:Raghavendra Haddad Relation to Subscriber:Self Name:Raghavendra Haddad Payer ID:Not on file Group ID:Not on file Type:Medicaid Address: [address] [place] AETNA HMO MCR Advance Directives For more information, please contact: [phone] * Full Code (Latest Code Status on File) Date Activated Date Inactivated Comments 09/29/2021 4:58 PM 09/29/2021 8:12 PM * Full Code Date Activated Date Inactivated Comments 09/29/2021 12:54 PM 09/29/2021 4:58 PM Care Teams Canceling Machine Operator Relationship Specialty [place] [address] [place] [id number] PCP - General Gastroenterology 05/10/19
--- OUTSIDE RECORDS SUMMARY | 2024-11-21 09:51 | XMS_ITS | Clinical Summary ---
Author Organization [facility] Address [address] [facility] [place] [address] Care Team Providers Care Hot Car Charger Name Role Phone Antonio Downnig MD Primary Care Provider + [phone] Source Comments [facility],non-owned Affiliates and Associated Physician Practices is amultiple site organization consisting of ambulatory clinics and hospital sitesin [place], [place], [place] and [place]. This disclosure is being madepursuant to the Care Everywhere program and may not contain all information available regarding this patient. Last updated 18.[facility] [employer] Allergies No known active allergies Medications * [...] on file Legal Sex Male 5:25 PM TRANSPORTATION LEAD Gender Identity Not on file Sexual Orientation [...] topic Insurance MEDICAID - OUT OF STATE [facility] Care Teams Hot Car Charger Relationship Specialty Start Date End Date Antonio Downing MD [address] [place] [address] PCP - General 05/04/15
--- OUTSIDE RECORDS SUMMARY | 2024-11-21 09:52 | XMS_ITS | Continuity of Care Document ---
Author Organization [facility] Address [address] [place] [address] Phone Care Team Providers Care Welcome Center Attendant Name Role Phone Lupe Heaton Unavailable Unavailable Advance Directives Directive Yes / No Effective Date File Name No Information Encounters Encounter Description Practice Location Reason(s) For Visit Diagnoses Date Provider Providers Copied on Encounter [facility], [id number] [place] [address] [address], [place], [place], [id number], [place] tel:[phone] [facility] No Information Apr-2 7-200 1 Florina Andrade. [address] [facility] , [address], [place], [address], [place]. tel:[phone] Family History Family Member Type Diagnosis Age At Onset No Information Payers Payer name Insurance type Covered constitution party ID Authoriza tion(s) No Information Social History [...]
--- NOTE | 2024-11-21 10:03 | ECG_ITS ---
Test Date: 2024-11-21 10:07:37 Measurements Intervals Bolt Rate: 64 P: 36 MN: 176 QRS: 34 QRSD: 94 T: 40 QT: 411 QTc: 425 Interpretive Statements SINUS RHYTHM INCOMPLETE RIGHT BUNDLE BRANCH BLOCK BORDERLINE ECG Compared to ECG 11/21/2024 08:23:47 HEART RATE HAS INCREASED Electronically Signed On 11-21-2024 10:17:08 CDT by Khoi Goins D.O.
[2024-11-21 10:15] LABS: Glucose Point of Care 99 mg/dl (65-105)
[2024-11-21 10:20] LABS: Add Urine Microscopic? NO; Appearance Urine Clear (Clear); Bilirubin Urine Negative (Negative); Blood Urine Negative (Negative); Color Urine Yellow (Yellow); Glucose Urine UA Negative (Negative); Ketones Urine 1+ mg/dL (Negative); Leukocyte Esterase Ur Negative LEU/UL (Negative); Nitrate Urine Negative (Negative); Protein Urine Negative (Negative); Specific Grav Ur 1.014 (1.001-1.035); Urobilinogen Urine 0.2 mg/dL (<2.0)
[2024-11-21 10:36] LABS: Amphetamine Screen Urine Negative (Negative); Barbiturate Screen Urine Negative (Negative); Benzodiazepines Screen Urine Negative (Negative); Cannabinoid Screen Urine Positive (Negative); Cocaine Screen Urine Negative (Negative); Methadone Screen Urine Negative (Negative); Opiate Screen Urine Negative (Negative); Phencyclidine Screen Urine Negative (Negative)
[2024-11-21] MEDS: TENECTEPLASE 50 MG/10 ML VIAL 21.8 MG IV PUSH (10:43)
--- NOTE | 2024-11-21 10:54 | PC.NURSE ---
Attempted to call report to [facility]. Staff states charge nurse has not assigned pt to a room and is in an emergency at this time.
== END 2024-11-21 11:24 | disposition short-term general hospital (02) ==
PROVIDERS: Emergency Medicine; Emergency Provider Physician Assistant; PCP Internal Medicine Gastroenterology
DX: R47.01 Aphasia (principal); R07.9 Chest pain, unspecified; C91.11 Chronic lymphocytic leukemia of B-cell type in remission
CPT/HCPCS: 36415; 70450; 70496; 70498; 71046; 71275; 80053; 80307; 81003; 82948; 83690; 84443; 84484; 85025; 85610; 85730; 93005; 96374; 99285; A9270; J3101; Q9967

== ENCOUNTER 2024-12-27 10:39 | Outpatient (CLI) | payer MEDICARE, MEDICAID, SELFPAY ==
--- OUTSIDE RECORDS SUMMARY | 2024-12-27 10:43 | XMS_ITS | Data Portability ---
Author Organization [facility] Darcie Stevens Address [address] [place] [address] Care Team Providers Care Banker Mason Name Role Phone ANTONIO CASON Primary Care Provider Assessment No assessment recorded. Plan of Treatment Reminders Order Date Submit Date Provider Last Modified By Organization Details Last Modified Time Details Appointments ANY 15 2024 09:00A M Antonio Cason MD Not available Not available Not available ANY 30 2024 11:15A Daylin Malik MD Not available Not available Not available Lab PSA, total, serum or plasma 2024 025 [place] [facility], [address], [place], [address], 08/23/2024 08:26:13 CMP, serum or plasma 2024 025 [place] [facility], [address], [place], [address], 08/23/2024 08:26:12 lipid panel, serum 2024 025 [place] [facility], [address], [place], [address], 08/23/2024 08:26:11 Referral gastroent erologist referral 2024 025 kassi Root MD, [address], [place], [address], 09/27/2024 15:48:34 urologist referral - Anterior pelvic pain 2023 024 [place] Muhammad MD, [address], [place], [address], 05/30/2024 16:04:22 ENT surgery referral 2022 023 [email or web address] Manan Webber MD, [address], [place], [address], 04/18/2024 11:37:10 Procedures None recorded. Surgeries None recorded. Imaging US, groin - Bilateral groin- Bilateral groin pain with pain in left greater than right 2023 024 [place] [facility], [address], [place], [address], 11/15/2023 15:00:34 Medication Orders betametha sone dipropion ate 0.05 % topical ointment 2022 023 [id number], [address] [place] [address], [place], [address], 11/07/2023 12:05:22 Patient TargetsNo targets recorded. 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 History of polyp of colon Surveillance colonoscopy Referring Physician: Antonio Cason, Internal Medicine, Encounter Date: 08/22/2024 Results Created Date Observation Date Name Description Value Unit Range Abnormal Flag Note LastModifiedBy Organization Detail LastModifiedTime 08/22/19 25 08/23/2024 LIPID PANEL cholesterol, total 184 mg/dL 100-19 9 Not Available [facility] ([facility]) [address] [place], [address], 08/23/2024 08:26:11 08/22/19 25 08/23/2024 LIPID PANEL triglyceride s 174 mg/dL 0-149 above high normal Not Available [facility] ([facility]) [address] [place], [address], 08/23/2024 08:26:11 08/22/19 25 08/23/2024 LIPID PANEL HDL cholesterol 42 mg/dL >39 Not Available [facility] ([facility]) [address] [place], [address], 08/23/2024 08:26:11 08/22/19 25 08/23/2024 LIPID PANEL VLDL cholesterol jessa 31 mg/dL 5-40 Not Available [facility] ([facility]) [address] [place], [address], 08/23/2024 08:26:11 08/22/19 25 08/23/2024 LIPID PANEL LDL chol calc ([facility]) 111 mg/dL 0-99 above high normal Not Available [facility] ([facility]) [address] [place], [address], 08/23/2024 08:26:11 08/22/19 25 08/23/2024 COMP. METAB OLIC PANEL (14) glucose 84 mg/dL 70-99 Not Available [facility] ([facility]) [address] [place], [address], 08/23/2024 08:26:12 08/22/19 25 08/23/2024 COMP. METAB OLIC PANEL (14) BUN 19 mg/dL 8-27 Not Available [facility] ([facility]) [address] [facility] [place], [address], 08/23/2024 08:26:12 08/22/19 25 08/23/2024 COMP. METAB OLIC PANEL (14) creatinine 1.05 mg/dL 0.76-1 .27 Not Available [facility] ([facility]) [address] [facility] [place], [address], 08/23/2024 08:26:12 08/22/19 25 08/23/2024 COMP. METAB OLIC PANEL (14) eGFR 76 mL/mi n/1.7 3 >59 Not Available [facility] ([facility]) [address] [facility] [place], [address], 08/23/2024 08:26:12 08/22/19 25 08/23/2024 COMP. METAB OLIC PANEL (14) BUN/creatini ne ratio 18 10-24 Not Available [facility] ([facility]) [address] [facility] [place], [address], 08/23/2024 08:26:12 08/22/19 25 08/23/2024 COMP. METAB OLIC PANEL (14) sodium 141 mmol/ L 134-14 4 Not Available [facility] ([facility]) [address] [facility] [place], [address], 08/23/2024 08:26:12 08/22/19 25 08/23/2024 COMP. METAB OLIC PANEL (14) potassium 4.0 mmol/ L 3.5-5. 2 Not Available [facility] ([facility]) [address] [facility] [place], [address], 08/23/2024 08:26:12 08/22/19 25 08/23/2024 COMP. METAB OLIC PANEL (14) chloride 102 mmol/ L 96-106 Not Available [facility] ([facility]) [address] [facility] [place], [address], 08/23/2024 08:26:12 08/22/19 25 08/23/2024 COMP. METAB OLIC PANEL (14) carbon dioxide, total 24 mmol/ L 20-29 Not Available [facility] ([facility]) [address] [place], [address], 08/23/2024 08:26:12 08/22/19 25 08/23/2024 COMP. METAB OLIC PANEL (14) calcium 9.3 mg/dL 8.6-10 .2 Not Available [facility] ([facility]) [address] [facility] [place] [place], [address], 08/23/2024 08:26:12 08/22/19 25 08/23/2024 COMP. METAB OLIC PANEL (14) protein, total 6.9 g/dL 6.0-8. 5 Not Available [facility] ([facility]) [address] [facility] [place], [address], 08/23/2024 08:26:12 08/22/19 25 08/23/2024 COMP. METAB OLIC PANEL (14) albumin 4.5 g/dL 3.9-4. 9 Not Available [facility] ([facility]) [address] [facility] [place], [address], 08/23/2024 08:26:12 08/22/19 25 08/23/2024 COMP. METAB OLIC PANEL (14) globulin, total 2.4 g/dL 1.5-4. 5 Not Available [facility] ([facility]) [address] [facility] [place], [address], 08/23/2024 08:26:12 08/22/19 25 08/23/2024 COMP. METAB OLIC PANEL (14) bilirubin, total 0.4 mg/dL 0.0-1. 2 Not Available [facility] ([facility]) [address] [facility] [place], [address], 08/23/2024 08:26:12 08/22/19 25 08/23/2024 COMP. METAB OLIC PANEL (14) alkaline phosphatase 140 IU/L 44-121 above high normal Not Available [facility] ([facility]) [address] [facility], [place], [address], 08/23/2024 08:26:12 08/22/19 25 08/23/2024 COMP. METAB OLIC PANEL (14) AST (SGOT) 15 IU/L 0-40 Not Available [facility] ([facility]) [address] [place], [address], 08/23/2024 08:26:12 08/22/19 25 08/23/2024 COMP. METAB OLIC PANEL (14) ALT (SGPT) 15 IU/L 0-44 Not Available [facility] ([facility]) [address] [place], [address], 08/23/2024 08:26:12 08/22/19 25 08/23/2024 PROST ATE-S PECIF IC AG prostate specific [...] kits canno t be used inter harrington eafilibertoy . Resul ts canno t be inter prete d as absol [place] evide nce of the prese nce or absen ce of dipesh bernal se. Not Available [facility] ([facility]) [address] [facility], [place], [address], 08/23/2024 08:26:13 11/22/19 25 11/21/2024 Gluco se [Mass /volu me] in Arter ial blood glucose [mass/volume ] in capillary blood by glucometer 94 mg/dL low: 70mg/d Lhigh: 99mg/d L Gluco se WB/PO C 94 70 - 99 mg/dL 11/21 9:41 PM CDT [facility] Not Available Not Available 11/26/2024 10:51:28 11/22/19 25 11/21/2024 Gluco se [Mass /volu me] in Arter ial blood specimen source identified Cap Finger stick Speci men Type Cap Finge rstic k 11/21 9:41 PM CDT [facility] Not Available Not Available 11/26/2024 10:51:28 11/22/19 25 11/21/2024 Gluco se [Mass /volu me] in Arter ial blood glucose [mass/volume ] in capillary blood by glucometer 90 mg/dL low: 70mg/d Lhigh: 99mg/d L Gluco se WB/PO C 90 70 - 99 mg/dL 11/21 5:23 PM CDT [facility] Not Available Not Available 11/26/2024 10:51:28 11/22/19 25 11/21/2024 Gluco se [Mass /volu me] in Arter ial blood specimen source identified Cap Finger stick Speci men Type Cap Finge rstic k 11/21 5:23 PM CDT [facility] Not Available Not Available 11/26/2024 10:51:28 11/22/19 25 11/21/2024 Gluco se [Mass /volu me] in Arter ial blood glucose [mass/volume ] in capillary blood by glucometer 96 mg/dL low: 70mg/d Lhigh: 99mg/d L Gluco se WB/PO C 96 70 - 99 mg/dL 11/21 5:23 PM CDT [facility] Not Available Not Available 11/26/2024 10:51:28 11/22/19 25 11/21/2024 Gluco se [Mass /volu me] in Arter ial blood specimen source identified Cap Finger stick Speci men Type Cap Finge rstic k 11/21 5:23 PM CDT [facility] Not Available Not Available 11/26/2024 10:51:28 11/23/19 25 11/22/2024 Gluco se [Mass /volu me] in Arter ial blood glucose [mass/volume ] in capillary blood by glucometer 105 mg/dL low: 70mg/d Lhigh: 99mg/d L high Gluco se WB/PO C 105 (H) 70 - 99 mg/dL 11/22 8:28 PM CDT [facility] Not Available Not Available 11/26/2024 10:51:29 11/23/19 25 11/22/2024 Gluco se [Mass /volu me] in Arter ial blood specimen source identified Cap Finger stick Speci men Type Leonardo Quarles rstic k 11/22 8:28 PM CDT [facility] Not Available Not Available 11/26/2024 10:51:29 11/23/19 25 11/22/2024 Gluco se [Mass /volu me] in Arter ial blood interpretati on and review of laboratory results Abnorm al Not Available Not Available 10:51:29 11/23/19 25 11/23/2024 Gluco se [Mass /volu me] in Arter ial blood glucose [mass/volume ] in capillary blood by glucometer 97 mg/dL low: 70mg/d Lhigh: 99mg/d L Gluco se WB/PO C 97 70 - 99 mg/dL 11/23 12:01 AM CDT [facility] Not Available Not Available 11/26/2024 10:51:29 11/23/19 25 11/23/2024 Gluco se [Mass /volu me] in Arter ial blood specimen source identified Cap Finger stick Speci men Type Leonardo Quarles rstic sanrda 11/23 12:01 AM CDT [facility] Not Available Not Available 11/26/2024 10:51:29 11/23/19 25 11/22/2024 Gluco se [Mass /volu me] in Arter ial blood glucose [mass/volume ] in capillary blood by glucometer 105 mg/dL low: 70mg/d Lhigh: 99mg/d L high Gluco se WB/PO C 105 (H) 70 - 99 mg/dL 11/22 7:54 AM CDT [id number] Not Available Not Available 11/26/2024 10:51:28 11/23/19 25 11/22/2024 Gluco se [Mass /volu me] in Arter ial blood specimen source identified Cap Finger stick Speci men Type Cap Finge rstic k 11/22 7:54 AM CDT [id number] Not Available Not Available 11/26/2024 10:51:28 11/23/19 25 11/22/2024 Gluco se [Mass /volu me] in Arter ial blood interpretati on and review of laboratory results Abnorm al Not Available Not Available 10:51:28 11/23/19 25 11/22/2024 Hemog lobin A1c/H emogl obin. total in Blood hemoglobin A1C/hemoglob in.total in blood 5.2 % high: 5.7% Hemog lobin A1c 5.2 <5.7 % 11/22 4:11 AM CDT [id number] Not Available Not Available 11/26/2024 10:51:28 11/23/19 25 11/22/2024 Hemog lobin A1c/H emogl obin. total in Blood glucose mean value [mass/volume ] in blood estimated from glycated hemoglobin 103 mg/dL Estim ated [place] ge Gluco se 103 mg/dL 11/22 4:11 AM CDT [facility] Not Available Not Available 11/26/2024 10:51:28 11/23/19 25 11/22/2024 Hemog lobin A1c/H emogl obin. total in Blood Unknown Analyte HbA1c Interp retati on: Normal : < 5.7% Pre-di abetes : 5.7-6. 4% Diabet es: Equal to or greate r than 6.5% Test result s diagno stic of diabet es should be repeat ed for confir mation . Treatm ent target values recomm ended by ADA and other clinic al organi zation s should be used to evalua te metabo lic contro l in patien ts. This test should not replac e glucos e testin g for patien ts with Type 1 diabet es, pediat chuckie patien ts, or pregna nt women. Falsel y low HbA1c result s may be observ ed in patien ts with clinic al condit ions that shorte n erythr ocyte life span or decrea se mean erythr ocyte age such as the presen ce of unstab le hemogl obin varian ts, elevat ed hemogl obin F level or other causes of hemoly tic anemia . HbA1c may not accura tely reflec t glycem ic contro l when clinic al condit ions that affect erythr ocyte surviv al are presen t. Severe Iron defici ency anemia may yield falsel y high result s. Hemogl obin A1c assay should not be used to diagno se or monito r diabet es in patien ts with malign marta, recent blood transf usion, chroni c kidney or liver diseas e. This method may yield falsel y low result s when hemogl obin (HbF) exceed s 5% in the specim en. The [employer] Alinit y assay for the measur ement of HbA1c is a Nation al Glycoh emoglo bin Standa rdizat ion Progra m (NGSP) certif ied method . HbA1c Inter preta tion: Elsa l: < 5.7% Pre-d iabet es: 5.7-6 .4% Diabe aung: Equal to or great er than 6.5% Test resul ts diagn ostic of diabe aung shoul d be repea franck for confi rmati on. Treat ment targe t value s recom acosta d by ADA and other clini jessa organ izati ons shoul d be used to evalu ate metab olic contr ol in patie nts. This test shoul d not repla ce gluco se testi ng for patie nts with Type 1 diabe aung, pedia tric patie nts, or pregn ant women . False ly low HbA1c resul ts may be obser norma in patie nts with clini jessa condi tions that short en eryth rocyt e life span or decre ase mean eryth rocyt e age such as the prese nce of unsta ble hemog lobin varia nts, eleva franck hemog lobin F level or other cause s of hemol ytic anemi a. HbA1c may not accur ately refle ct glyce channing contr ol when clini jessa condi tions that affec t eryth rocyt e survi marques are prese nt. Sever e Iron defic iency anemi a may yield false ly high resul ts. Hemog lobin A1c assay shoul d not be used to diagn ose or monit or diabe aung in patie nts with malig nathaly , recen t blood trans fusio n, chron ic kidne y or liver disea se. This metho d may yield false ly low resul ts when hemog lobin (HbF) excee ds 5% in the speci men. The Abbot t Alini ty assay for the measu remen t of HbA1c is a Natio nal Glyco hemog lobin Stand ardiz ation Progr am (NGSP ) certi fied metho d. Not Available Not Available 11/26/2024 10:51:28 11/23/19 25 11/22/2024 CBC W Auto Diffe renti al panel - Blood leukocytes [#/volume] in blood by automated count 12 text: 4.0 - 10.7 x10e9/ L high WBC 12.0 (H) 4.0 - 10.7 x10E9 /L 11/22 3:57 AM CDT [facility] Not Available Not Available 11/26/2024 10:50:56 11/23/19 25 11/22/2024 CBC W Auto Diffe renti al panel - Blood erythrocytes [#/volume] in blood by automated count 4.5 text: 4.30 - 5.80 x10e12 /L RBC Count 4.50 4.30 - 5.80 x10E1 2/L 11/22 3:57 AM CDT [facility] Not Available Not Available 11/26/2024 10:50:56 11/23/19 25 11/22/2024 CBC W Auto Diffe renti al panel - Blood hemoglobin [mass/volume ] in blood 14.5 g/dL low: 13.3g/ dLhigh : 17.5g/ dL Hemog lobin 14.5 13.3 - 17.5 g/dL 11/22 3:57 AM CDT [facility] Not Available Not Available 11/26/2024 10:50:56 11/23/19 25 11/22/2024 CBC W Auto Diffe tima al panel - Blood hematocrit [volume fraction] of blood by automated count 42.6 % low: 38.7%h igh: 51.1% Hemat ocrit 42.6 38.7 - 51.1 % 11/22 3:57 AM CDT [facility] Not Available Not Available 11/26/2024 10:50:56 11/23/19 25 11/22/2024 CBC W Auto Diffe tima al panel - Blood MCV [entitic mean volume] in red blood cells by automated count 94.7 fL low: 80fLhi gh: 98fL MCV 94.7 80.0 - 98.0 fL 11/22 3:57 AM CDT [facility] Not Available Not Available 11/26/2024 10:50:56 11/23/19 25 11/22/2024 CBC W Auto Diffe tima damon panel - Blood MCH [entitic mass] by automated count 32.2 pg low: 26.7pg high: 33.6pg MCH 32.2 26.7 - 33.6 pg 11/22 3:57 AM CDT [facility] Not Available Not Available 11/26/2024 10:50:56 11/23/19 25 11/22/2024 CBC W Auto Diffe tima al panel - Blood MCHC [entitic mass/volume] in red blood cells by automated count 34 g/dL low: 31.7g/ dLhigh : 36.3g/ dL MCHC 34.0 31.7 - 36.3 g/dL 11/22 3:57 AM CDT [facility] Not Available Not Available 11/26/2024 10:50:56 11/23/19 25 11/22/2024 CBC W Auto Diffe tima al panel - Blood erythrocyte [distwidth] in red blood cells by automated count 12.8 % low: 11.3%h igh: 14.8% RDW-C V 12.8 11.3 - 14.8 % 11/22 3:57 AM CDT [facility] Not Available Not Available 11/26/2024 10:50:56 11/23/19 25 11/22/2024 CBC W Auto Diffe renti al panel - Blood platelets [#/volume] in blood by automated count 260 text: 150 - 420 x10e9/ L Plate let Count 260 150 - 420 x10E9 /L 11/22 3:57 AM CDT [facility] Not Available Not Available 11/26/2024 10:50:56 11/23/19 25 11/22/2024 CBC W Auto Diffe renti al panel - Blood platelet [entitic mean volume] in blood by automated count 8.4 fL low: 7.8fLh igh: 11.4fL MPV 8.4 7.8 - 11.4 fL 11/22 3:57 AM CDT [facility] Not Available Not Available 11/26/2024 10:50:56 11/23/19 25 11/22/2024 CBC W Auto Diffe renti al panel - Blood neutrophils/ leukocytes in blood by automated count 56.5 % low: 41%hig h: 74% Neutr ophil % 56.5 41.0 - 74.0 % 11/22 3:57 AM CDT [facility] Not Available Not Available 11/26/2024 10:50:56 11/23/19 25 11/22/2024 CBC W Auto Diffe renti al panel - Blood lymphocytes/ leukocytes in blood by automated count 34.4 % low: 17%hig h: 47% Lymph ocyte % 34.4 17.0 - 47.0 % 11/22 3:57 AM CDT [facility] Not Available Not Available 11/26/2024 10:50:56 11/23/19 25 11/22/2024 CBC W Auto Diffe renti al panel - Blood monocytes/le ukocytes in blood by automated count 7 % low: 3%high : 11% Monoc yte % 7.0 3.0 - 11.0 % 11/22 3:57 AM CDT [facility] Not Available Not Available 11/26/2024 10:50:56 11/23/19 25 11/22/2024 CBC W Auto Diffe renti al panel - Blood eosinophils/ leukocytes in blood by automated count 1.3 % low: 0%high : 7% Eosin ophil % 1.3 0.0 - 7.0 % 11/22 3:57 AM CDT [facility] Not Available Not Available 11/26/2024 10:50:56 11/23/19 25 11/22/2024 CBC W Auto Diffe renti al panel - Blood basophils/le ukocytes in blood by automated count 0.5 % low: 0%high : 1.6% Basop hil % 0.5 0.0 - 1.6 % 11/22 3:57 AM CDT [facility] Not Available Not Available 11/26/2024 10:50:56 11/23/19 25 11/22/2024 CBC W Auto Diffe renti al panel - Blood immature granulocytes /leukocytes in blood by automated count 0.3 % low: 0%high : 1% Immat ure Granu locyt es % 0.3 0.0 - 1.0 % 11/22 3:57 AM CDT [facility] Not Available Not Available 11/26/2024 10:50:56 11/23/19 25 11/22/2024 CBC W Auto Diffe renti al panel - Blood neutrophils [#/volume] in blood by automated count 6.77 text: 1.60 - 7.50 x10e9/ L Neutr ophil Absol [place] 6.77 1.60 - 7.50 x10E9 /L 11/22 3:57 AM CDT [facility] Not Available Not Available 11/26/2024 10:50:56 11/23/19 25 11/22/2024 CBC W Auto Diffe renti al panel - Blood lymphocytes [#/volume] in blood by automated count 4.11 text: 1.00 - 4.40 x10e9/ L Lymph ocyte Absol [place] 4.11 1.00 - 4.40 x10E9 /L 11/22 3:57 AM CDT [facility] Not Available Not Available 11/26/2024 10:50:56 11/23/19 25 11/22/2024 CBC W Auto Diffe renti al panel - Blood monocytes [#/volume] in blood by automated count 0.84 text: 0.15 - 1.00 x10e9/ L Monoc yte Absol [place] 0.84 0.15 - 1.00 x10E9 /L 11/22 3:57 AM CDT [facility] Not Available Not Available 11/26/2024 10:50:56 11/23/19 25 11/22/2024 CBC W Auto Diffe renti al panel - Blood eosinophils [#/volume] in blood 0.15 text: 0.00 - 0.60 x10e9/ L Eosin ophil Absol [place] 0.15 0.00 - 0.60 x10E9 /L 11/22 3:57 AM CDT [facility] Not Available Not Available 11/26/2024 10:50:56 11/23/19 25 11/22/2024 CBC W Auto Diffe renti al panel - Blood basophils [#/volume] in blood by automated count 0.06 text: 0.00 - 0.13 x10e9/ L Basop hil Absol [place] 0.06 0.00 - 0.13 x10E9 /L 11/22 3:57 AM CDT [facility] Not Available Not Available 11/26/2024 10:50:56 11/23/19 25 11/22/2024 CBC W Auto Diffe renti al panel - Blood interpretati on and review of laboratory results Abnorm al Not Available Not Available 10:50:56 11/23/19 25 11/22/2024 Basic metab olic 2000 panel - Serum or Plasm a glucose [mass/volume ] in serum or plasma 113 mg/dL low: 70mg/d Lhigh: 99mg/d L high Gluco se 113 (H) 70 - 99 mg/dL 11/22 4:27 AM CDT [facility] Not Available Not Available 11/26/2024 10:50:56 11/23/19 25 11/22/2024 Basic metab olic 2000 panel - Serum or Plasm a sodium [moles/volum e] in serum or plasma 140 mmol/ L low: 136mmo l/Lhig h: 145mmo l/L Sodiu m 140 136 - 145 mmol/ L 11/22 4:27 AM CDT [facility] Not Available Not Available 11/26/2024 10:50:56 11/23/19 25 11/22/2024 Basic metab olic 1999 panel - Serum or Plasm a potassium [moles/volum e] in serum or plasma 4 mmol/ L low: 3.5mmo l/Lhig h: 5.1mmo l/L Potas sium 4.0 3.5 - 5.1 mmol/ L 11/22 4:27 AM CDT [facility] Not Available Not Available 11/26/2024 10:50:56 11/23/19 25 11/22/2024 Basic Dat[employer] o[employer] 1999 panel - Serum or Plasm a chloride [moles/volum e] in serum or plasma 110 mmol/ L low: 98mmol /Lhigh : 107mmo l/L high Chlor ramírez 110 (H) 98 - 107 mmol/ L 11/22 4:27 AM CDT [facility] Not Available Not Available 11/26/2024 10:50:56 11/23/19 25 11/22/2024 [employer] olic 1999 panel - Serum or Plasm a carbon dioxide, total [moles/volum e] in serum or plasma 21 mmol/ L low: 22mmol /Lhigh : 29mmol /L low CO2 21 (L) 22 - 29 mmol/ L 11/22 4:27 AM CDT [facility] Not Available Not Available 11/26/2024 10:50:56 11/23/19 25 11/22/2024 [employer] ic 1999 panel - Serum or Plasm a calcium [mass/volume ] in serum or plasma 8.6 mg/dL low: 8.4mg/ dLhigh : 10.4mg /dL Calci um 8.6 8.4 - 10.4 mg/dL 11/22 4:27 AM CDT [facility] Not Available Not Available 11/26/2024 10:50:56 11/23/19 25 11/22/2024 [employer] ic 1999 panel - Serum or Plasm a anion gap in blood by calculation 9 mmol/ L low: 6mmol/ Lhigh: 16mmol /L Anion Gap 9 6 - 16 mmol/ L 11/22 4:27 AM CDT [facility] Not Available Not Available 11/26/2024 10:50:56 11/23/19 25 11/22/2024 Basic metab ol 1999 panel - Serum or Plasm a urea nitrogen [mass/volume ] in serum or plasma 10 mg/dL low: 7mg/dL high: 26mg/d L BUN 10 7 - 26 mg/dL 11/22 4:27 AM CDT [facility] Not Available Not Available 11/26/2024 10:50:56 11/23/19 25 11/22/2024 [employer] olic 1999 panel - Serum or Plasm a creatinine [mass/volume ] in serum or plasma 0.99 mg/dL low: 0.72mg /dLhig h: 1.25mg /dL Creat inine 0.99 0.72 - 1.25 mg/dL 11/22 4:27 AM CDT [facility] Not Available Not Available 11/26/2024 10:50:56 11/23/19 25 11/22/2024 Basic [employer] ic 1999 panel - Serum or Plasm a glomerular filtration rate [volume rate/area] in serum, plasma or blood by creatinine-b ased formula (CKD-epi 2020)/1.73 sq M 82 text: >=90 mL/min /1.73 m2 low eGFR by CKD-E PI 82 (L) >=90 mL/mi n/1.7 3 m2 11/22 4:27 AM CDT [facility] Not Available Not Available 11/26/2024 10:50:56 11/23/19 25 11/22/2024 Basic [facility] 1999 panel - Serum or Plasm a interpretati on and review of laboratory results Abnorm al Not Available Not Available 10:50:56 11/23/19 25 11/22/2024 Lipid 1996 panel - Serum or Plasm a cholesterol [mass/volume ] in serum or plasma 172 mg/dL high: 200mg/ dL Dominga stero l 172 <200 mg/dL 11/22 4:27 AM CDT [facility] Not Available Not Available 11/26/2024 10:50:56 11/23/19 25 11/22/2024 Lipid 1996 panel - Serum or Plasm a triglyceride [mass/volume ] in serum or plasma 129 mg/dL high: 150mg/ dL Trigl yceri anupam 129 <150 mg/dL 11/22 4:27 AM CDT [facility] Not Available Not Available 11/26/2024 10:50:56 11/23/19 25 11/22/2024 Lipid 1996 panel - Serum or Plasm a cholesterol in HDL [mass/volume ] in serum or plasma 37 mg/dL low: 40mg/d L low HDL Dominga stero l 37 (L) >40 mg/dL 11/22 4:27 AM CDT [facility] Not Available Not Available 11/26/2024 10:50:56 11/23/19 25 11/22/2024 Lipid 1996 panel - Serum or Plasm a cholesterol in LDL [mass/volume ] in serum or plasma by calculation 109 mg/dL high: 130mg/ dL LDL Calcu lated 109 <130 mg/dL 11/22 4:27 AM CDT [facility] Not Available Not Available 11/26/2024 10:50:56 11/23/19 25 11/22/2024 Lipid 1996 panel - Serum or Plasm a cholesterol in VLDL [mass/volume ] in serum or plasma by calculation 26 mg/dL high: 30mg/d L VLDL Calcu lated 26 <=30 mg/dL 11/22 4:27 AM CDT [facility] Not Available Not Available 11/26/2024 10:50:56 11/23/19 25 11/22/2024 Lipid 1996 panel - Serum or Plasm a cholesterol. total/choles terol in HDL [mass ratio] in serum or plasma 4.6 high: 4.5 high Chol HDL Ratio 4.6 (H) <4.5 11/22 4:27 AM CDT [facility] Not Available Not Available 11/26/2024 10:50:56 11/23/19 25 11/22/2024 Lipid 1996 panel - Serum or Plasm a cholesterol in LDL/choleste rol in HDL [mass ratio] in serum or plasma 3 high: 5 LDL/H DL Ratio 3.0 <5.0 11/22 4:27 AM CDT [facility] Not Available Not Available 11/26/2024 10:50:56 11/23/19 25 11/22/2024 Lipid 1996 panel - Serum or Plasm a interpretati on and review of laboratory results Abnorm al Not Available Not Available 10:50:56 11/24/19 25 11/23/2024 Gluco se [Mass /volu me] in Arter ial blood glucose [mass/volume ] in capillary blood by glucometer 104 mg/dL low: 70mg/d Lhigh: 99mg/d L high Gluco se WB/PO C 104 (H) 70 - 99 mg/dL 11/23 7:32 AM CDT [id number] Not Available Not Available 11/26/2024 10:50:57 11/24/19 25 11/23/2024 Gluco se [Mass /volu me] in Arter ial blood specimen source identified Cap Finger stick Speci men Type Cap Finge rstic k 11/23 7:32 AM CDT [id number] Not Available Not Available 11/26/2024 10:50:57 11/24/19 25 11/23/2024 Gluco se [Mass /volu me] in Arter ial blood interpretati on and review of laboratory results Abnorm al Not Available Not Available 10:50:57 11/24/19 25 11/23/2024 Hemog lobin A1c/H emogl obin. total in Blood hemoglobin A1C/hemoglob in.total in blood 5.1 % high: 5.7% Hemog lobin A1c 5.1 <5.7 % 11/23 6:08 AM CDT [id number] Not Available Not Available 11/26/2024 10:50:56 11/24/19 25 11/23/2024 Hemog lobin A1c/H emogl obin. total in Blood glucose mean value [mass/volume ] in blood estimated from glycated hemoglobin 100 mg/dL Estim rani hester Gluco se 100 mg/dL 11/23 6:08 AM CDT [id number] Not Available Not Available 11/26/2024 10:50:56 11/24/19 25 11/23/2024 Hemog lobin A1c/H emogl obin. total in Blood Unknown Analyte HbA1c Interp retati on: Normal : < 5.7% Pre-di abetes : 5.7-6. 4% Diabet es: Equal to or greate r than 6.5% Test result s diagno stic of diabet es should be repeat ed for confir mation . Treatm ent target values recomm ended by ADA and other clinic al organi zation s should be used to evalua te metabo lic contro l in patien ts. This test should not replac e glucos e testin g for patien ts with Type 1 diabet es, pediat chuckie patien ts, or pregna nt women. Falsel y low HbA1c result s may be observ ed in patien ts with clinic al condit ions that shorte n erythr ocyte life span or decrea se mean erythr ocyte age such as the presen ce of unstab le hemogl obin varian ts, elevat ed hemogl obin F level or other causes of hemoly tic anemia . HbA1c may not accura tely reflec t glycem ic contro l when clinic al condit ions that affect erythr ocyte surviv al are presen t. Severe Iron defici ency anemia may yield falsel y high result s. Hemogl obin A1c assay should not be used to diagno se or monito r diabet es in patien ts with malign marta, recent blood transf usion, chroni c kidney or liver diseas e. This method may yield falsel y low result s when hemogl obin (HbF) exceed s 5% in the specim en. The MacroCure Alinit y assay for the measur ement of HbA1c is a Nation al Glycoh emoglo bin Standa rdizat ion Progra m (NGSP) certif ied method . HbA1c Inter preta tion: Elsa l: < 5.7% Pre-d iabet es: 5.7-6 .4% Diabe aung: Equal to or great er than 6.5% Test resul ts diagn ostic of diabe aung shoul d be repea franck for confi rmati on. Treat ment targe t value s recom acosta d by ADA and other clini jessa organ izati ons shoul d be used to evalu ate metab olic contr ol in patie nts. This test shoul d not repla ce gluco se testi ng for patie nts with Type 1 diabe aung, pedia tric patie nts, or pregn ant women . False ly low HbA1c resul ts may be obser norma in patie nts with clini jessa condi tions that short en eryth rocyt e life span or decre ase mean eryth rocyt e age such as the prese nce of unsta ble hemog lobin varia nts, eleva franck hemog lobin F level or other cause s of hemol ytic anemi a. HbA1c may not accur ately refle ct glyce channing contr ol when clini jessa condi tions that affec t eryth rocyt e survi marques are prese nt. Sever e Iron defic iency anemi a may yield false ly high resul ts. Hemog lobin A1c assay shoul d not be used to diagn ose or monit or diabe aung in patie nts with malig nathaly , recen t blood trans fusio n, chron ic kidne y or liver disea se. This metho d may yield false ly low resul ts when hemog lobin (HbF) excee ds 5% in the speci men. The Abbot t Alini ty assay for the measu remen t of HbA1c is a Natio nal Glyco hemog lobin Stand ardiz ation Progr am (NGSP ) certi fied metho d. Not Available Not Available 11/26/2024 10:50:56 11/15/19 24 11/15/2023 US, groin No observ ation record ed. [facility] [address], [place], [address], 11/28/2023 10:38:17 11/15/19 24 11/15/2023 US, groin No observ ation record ed. [facility] [address], [place], [address], 11/28/2023 10:38:17 11/22/19 25 11/21/2024 CT, brain , w/o contr ast No observ ation record ed. [address], [place], [address], 11/25/2024 10:27:36 11/22/19 25 11/21/2024 CT, angio gram, chest , w/ contr ast No observ ation record ed. [address], [place], [address], 11/25/2024 10:27:50 11/22/1911/21/2024 CT, angio gram, head, w/ contr ast No observ ation record ed. [address], [place], [address], 11/25/2024 10:28:26 Result Notes None recorded. Problems Name Problem SNOMED Code Status Onset Date Resolution Date Notes Provider Name and Address Organization Details Recorded Time Skin lesion 05299629 Active 2017 forehead Antonio Cason MD Attn: Brinda macedo,[address] [facility], [place], [address], [place] [facility] 8 16:50:14 Lesion of soft tissue 879204222 Active 2017 right neck/left axilla Antonio Cason MD Attn: Brinda macedo,[address] [facility], [place], [address], [place] [facility] 8 16:50:54 B-cell chronic lymphocyt ic leukemia Active 2020 Antonio Cason MD Attn: Brinda macedo,[address] [facility] [address], [place], [address], [place] [facility] 1 11:16:19 Active immunizat ion Active 2020 Antonio Cason MD Attn: Brinda g,[address] [facility] [address], [place], [address], [place] [facility] 1 11:19:19 Psoriasif orm eczema 449733103 Active 2022 Antonio Cason MD Attn: Brinda g,[address], [place], [address], [place] [facility] 3 11:32:41 Low back strain 049674363 Active 2022 Antonio Cason MD Attn: Accountin g,[address], [place], [address], [place] [facility] 3 11:34:48 Hearing disorder 227128615 Active 2022 Antonio Cason MD Attn: Brinda hellen,[address] [facility] [address] [address], [place], [address], [place] [facility] 3 11:38:35 B-cell chronic lymphocyt ic leukemia variant 109857387 Active 2022 Antonio Cason MD Attn: Brinda g,[address] [facility] [address], [place], [address], [place] [facility] 3 11:43:34 Pelvic and perineal pain 893721683 Active 2023 Antonio Cason MD Attn: Brinda macedo,[address] [facility] [address], [place], [address], [place] [facility] 4 12:51:42 Suprapubi c pain 226407550 Active 2023 Antonio Cason MD Attn: Brinda macedo,[address], [place], [address], [place] [facility] 4 17:43:00 Inguinal hernia 460203876 Active 2023 Antonio Cason MD Attn: Brinda macedo,[address] [facility], [place], [address], [place] [facility] 4 04:56:02 History of polyp of colon 028122656 Active 2024 Antonio Cason MD Attn: Brinda macedo,[address], [place], [address], [place] [facility] 5 10:42:45 Screening for malignant neoplasm of prostate Active 2024 Antonio Cason MD Attn: Brinda macedo,[address] [facility], [place], [address], [place] [facility] 5 10:46:02 Adult health examinati on Active 2024 Antonio Cason MD Attn: Brinda macedo,[address], [place], [address], [facility] - [facility] 5 10:46:50 Atheroscl erosis of left carotid artery 404135383370 105 Active 2024 >80% Antonio Cason MD Attn: Brinda macedo,[address], [place], [address], [place] [facility] 5 12:52:43 Chest pain 81129933 Active 2024 Antonio Cason MD Attn: Brinda macedo,[address], [place], [address], [facility] - [facility] 5 12:53:57 Abnormal weight loss 991143343 Active Antonio Cason MD Attn: Brinda macedo,[address], [place], [address], [facility] - [facility] 5 12:20:24 Problem Notes None recorded. Procedures Surgical History Date Name Laterality Status Provider Name and Address Organization Details Recorded Time 8 EXCISION, BENIGN LESION INCLUDING MARGINS, FACE, EARS, EYELIDS, NOSE, LIPS, MUCOUS MEMBRANE (SURG) completed Dharmesh Malik MD Attn: Accounting,[address], [place], [address], [facility] - [facility] 05/02/2018 06:56:08 Amputation completed Ezra Mcadams [place] - [facility] 02/25/2015 11:12:35 Imaging Results Imaging Date Name Status LastModified by [facility] ([facility]3] Details LastModified Time 11/15/2023 US, groin completed [email or web address] [address], [place], [address], 11/28/2023 10:38:17 11/15/2023 US, groin completed [email or web address] [address], [place], [address], 11/28/2023 10:38:17 11/21/2024 CT, brain, w/o contrast completed [address], [place], [address], 11/25/2024 10:27:36 11/21/2024 CT, angiogram, chest, w/ contrast completed [address], [place], [address], 11/25/2024 10:27:50 11/21/2024 CT, angiogram, head, w/ contrast completed [address], [place], [address], 11/25/2024 10:28:26 Procedure Notes None recorded. Medical Equipment None Reported. Allergies No known drug allergies Medications Name Sig Start Date Stop Date Status Note LastModified by Organization Details LastModified Time atorvastat in 20 mg tablet TAKE 1 TABLET BY MOUTH AT BEDTIME active Not Available Not Available No t Available hydrocodon e 5 mg-acetami nophen 325 mg tablet 10/14 completed Not Available Not Available Not Available clopidogre l 75 mg tablet TAKE 1 TABLET BY MOUTH ONCE DAILY active Not Available Not Available No t Available sulfametho xazole 800 mg-trimeth oprim 160 [...] completed Not Available Not Available Not Available aspirin 81 mg chewable tablet CHEW AND SWALLOW 1 TABLET BY MOUTH ONCE DAILY active Not Available Not Available No t Available methylpred nisolone 4 mg tablets in [...] pain Not Available Not Available Not Available iron active Not Available Not Availa ble Not Available B12 active Not Available Not Availa ble Not Available Vitals Date Recorded Body height Body mass index (BMI) Body weight Heart rate Oxygen saturation Oxygen saturation in Arterial blood by Pulse oximetry Systolic blood pressure Diastolic blood pressure Provider Name and Address Organization Details Last Updated DateTime 3 177.8 cm 26.8 kg/m2 49151.7 7 g 75 /min 100 % 100 % 140 mm[Hg] 70 mm[Hg] Rosario Quigley MA [facility] 3 11:19:16 Date Recorded Body height Body mass index (BMI) Body weight Oxygen saturation Oxygen saturation in Arterial blood by Pulse oximetry Body temperature Heart rate Systolic blood pressure Diastolic blood pressure Provider Name and Address Organization Details Last Updated DateTime 4 177.8 cm 26.8 kg/m2 68069.7 7 g 99 % 99 % 98 [degF] 67 /min 124 mm[Hg] 76 mm[Hg] Jenn Winters MA [facility] 4 12:18:13 Date Recorded Body height Body mass index (BMI) Body weight Heart rate Oxygen saturation Oxygen saturation in Arterial blood by Pulse oximetry Systolic blood pressure Diastolic blood pressure Provider Name and Address Organization Details Last Updated DateTime 4 177.8 cm 27.7 kg/m2 72887.3 3 g 70 /min 99 % 99 % 124 mm[Hg] 74 mm[Hg] Jenn Winters MA [facility] 4 10:35:27 Date Recorded Body height Body mass index (BMI) Body weight Heart rate Oxygen saturation Oxygen saturation in Arterial blood by Pulse oximetry Systolic blood pressure Diastolic blood pressure Provider Name and Address Organization Details Last Updated DateTime 5 177.8 cm 27.6 kg/m2 65267.1 7 g 68 /min 99 % 99 % 123 mm[Hg] 79 mm[Hg] Jeremy Hamilton MA [facility] 5 10:08:53 Date Recorded Body height Body mass index (BMI) Body weight Heart rate Oxygen saturation Oxygen saturation in Arterial blood by Pulse oximetry Systolic blood pressure Diastolic blood pressure Provider Name and Address Organization Details Last Updated DateTime 177.8 cm 27 kg/m2 16249.3 7 g 80 /min 99 % 99 % 140 mm[Hg] 76 mm[Hg] Deepthi Sepulveda MA [facility] 12:09:14 Social History Question Answer Notes LastModified by [employer] Details LastModified Time Tobacco Smoking Status Never Smoker Jeremy Hamilton MA null, [place] - [facility] 08/22/2024 10:05:39 Do You Have An Advance Directive? No Information not available 08/22/2024 Auto Related Injury? No [email or web address] Information not available 09/26/2017 Are You Blind Or Do You Have Difficulty Seeing? No Information not available 08/22/2024 What Is Your Level Of Caffeine Consumption? Heavy Information not available 02/25/2015 Are You Deaf Or Do You Have Serious Difficulty Hearing? No Information not available 08/22/2024 What Type Of Diet Are You Following? REGULAR Information not available 08/22/2024 What Was The Date Of Your Most Recent Tobacco Screening? 12/02/2024 [email or web address] Information not available 12/02/2024 What Is Your Relationship Status? Information not available 08/22/2024 Do You Use Your Seat Belt Or Car Seat Routinely? Yes Information not available 08/22/2024 Has Tobacco Cessation Counseling Been Provided? No [email or web address] Information not available 07/05/2023 Sex: Male Functional Status Question Answer Note LastModified by [employer] Details LastModified Time Do you or have you ever used any other forms of tobacco or nicotine? No [email or web address] Information not available 11/07/2023 What is your level of alcohol consumption? None Information not available 02/25/2015 Are you currently employed? No retired Information not available 08/22/2024 Are you able to care for yourself? Yes Information not available 08/22/2024 What is your exercise level? Occasional Information not available 08/22/2024 Mental Status Question Answer Note LastModified by Organization D etails LastModified Time Do you feel stressed (tense, restless, nervous, or anxious, or unable to sleep at night)? [id number] [email or web address] Information not available 08/22/2024 Family History Relationship Description Onset Age of this Age Resolved Age Notes LastModified by Organization Details LastModified Time Mother Heart disease [email or web address] Not available 2014 12:20:25 Mother Malignant tumor of thyroid gland [email or web address] Not available 2014 12:20:25 Maternal Grandmother Diabetes mellitus [email or web address] Not available 2014 12:20:25 Medical History No medical history recorded. Immunizations Vaccine Type Date Status Note Provider Nam e and Address Organization Details Recorded Time Influenza, high-dose, quadrivalent, PF 1 completed Jenn Winters [place], [place] [facility] 03/25/2024 10:35:05 COVID-19, mRNA, LNP-S, PF, 100 mcg/0.5mL dose or 50 mcg/0.25mL dose 1 completed Jenn Win[place], [place] [facility] 03/25/2024 10:35:05 COVID-19 vaccine, vector-nr, rS-Ad26, PF, 0.5 mL 1 completed Jenn Win[place], [place] [facility] 03/25/2024 10:35:05 Pneumococcal conjugate PCV20, polysaccharide ZHA660 conjugate, adjuvant, PF 3 completed Rosario Quig[place] [facility] 07/05/2023 14:44:39 Influenza, split virus, trivalent, preservative 5 completed Jeremy Hamilton [place], [place] [facility] 08/22/2024 11:25:14 Past Encounters Encounter ID Performer Location Encounter Start Date Encounter Closed Date Diagnosis/Indication Diagnosis SNOMED-CT Code Diagnosis ICD10 Code Diagnosis Note [id number] MD Simran Dominique (Adult Med) [address] [place] [address] 02/25/2015 10:45:46 02/25/2015 13:44:24 Abnormal weight loss 863984689 Screening for malignant neoplasm of prostate 375252999 Screening for malignant neoplasm of colon 251731696 [id number] MD Simran Dominique (Adult Med) [address] [place] [address] 08/31/2017 16:00:21 08/31/2017 17:00:38 Skin lesion 99194114 L98.9 Lesion of soft tissue 23 6086519 M79.9 [id number] Sharda Preston MD [facility] [address] [place] [phone] 09/26/2017 12:48:26 10/11/2017 08:50:13 Lesion of skin of face 4108344416 06 L98.9 Mass of axilla 583417651 R22.2 Mass of neck 972688163 R 22.1 [id number] Grant Pathak MD [facility] [address] [place] [phone] 03/01/2018 10:07:50 03/08/2018 11:58:13 Mass of scalp 895875579 R22.0 rule out basal cell cancer [id number] Grant Pathak MD [facility] [address] [place] [address] 05/01/2018 14:20:14 05/07/2018 10:02:49 Postoperative visit 606013126 Z09 Dx- Pore of martita [id number] MD Simran Dominique (Adult Med) [address] [place] [phone] 10/09/2019 16:36:42 10/10/2019 11:56:13 Lesion of soft tissue 559440734 M79.9 Observe Skin lesion 40027633 L98 .9 observe [id number] MD Simran Dominique (Adult Med) [address] [place] [phone] 10/14/2020 08:52:50 10/14/2020 11:24:09 [id number] MD Simran Dominique (Adult Med) [address] [place] [phone] 10/15/2020 08:23:14 10/16/2020 20:31:07 B-cell chronic lymphocytic leukemia 172396159 C91.10 Active immunization 3387 9002 Z23 [id number] MD Simran Dominique (Adult Med) [address] [place] [phone] 07/05/2023 11:07:41 07/07/2023 13:04:24 Psoriasiform eczema 006289631 L30.8 Low back strain 31788998 1 S39.012A Continue acetaminop hen and ibuprofen Hearing disorder 1064393 05 H91.90 Active immunization 3387 9002 Z23 Wants to wait to do other vaccinatio ns B-cell chr onic lymphocytic leukemia variant 586296481 C91.10 F/U oncology as scheduled [id number] MD Simran Dominique (Adult Med) [address] [place] [id number] 11/07/2023 11:21:26 11/10/2023 09:58:39 Pelvic and perineal pain 210900075 R10.2 Lower abdominal pain 545 93859 R10.30 [id number] MD Simran Dominique (Adult Med) [address] [place] [phone] 03/25/2024 10:07:56 03/26/2024 12:56:44 B-cell chronic lymphocytic leukemia variant 543625812 C91.10 F/U oncology as scheduled Pelvic and perineal pain 396609911 R10.2 F/U urology [id number] MD Simran Dominique (Adult Med) [address] [place] [id number] 08/22/2024 09:48:21 08/28/2024 16:36:14 Overweight 699778603 E66.3 B-cell chr onic lymphocytic leukemia variant 192840963 C91.10 F/U oncology as scheduled Pelvic and perineal pain 477707311 R10.2 F/U urology History of polyp of colon 972313032 Z86.0100 Screening for malignant neoplasm of prostate 340022964 Z12.5 Adult heal th examination 464287835 Z00.00 Active immunization 3387 9002 Z23 [id number] MD Simran Dominique (Adult Med) [address] [place] [id number] 12/02/2024 11:48:49 12/03/2024 11:08:19 Atherosclerosis of left carotid artery 1549924083 88166 I65.22 F/U neurology Chest pain 87821330 R07. 89 F/U cardiology B-cell chr onic lymphocytic leukemia variant 260473631 C91.10 F/U oncology as scheduled Health Concerns Section Related Observation LastModified by Organization Detai ls LastModified Time None Recorded Concern Status LastModified by Organization Details LastModified Time None Recorded Advance Directives Directive N: Payers Encounter Date Sequence Insurance Name Policy Number Policy Queen Covered Member ID Queen Member ID Guarantor Name 07/05/2023 1 [employer] - [place] (MEDICARE REPLACEMENT/AD VANTAGE - HMO) [id number] L Raghavendra P Fanning [id number] Raghavendra Fanning 11/07/2023 1 [employer] - [place] (MEDICARE REPLACEMENT/AD VANTAGE - HMO) [id number] L Raghavendra P Fanning [id number] Raghavendra Fanning 11/07/2023 2 [place]ICARE REPLACEMENT PRIMARY) Raghavendra Fanning [id number] Raghavendra Fanning 03/25/2024 1 [employer] - [place] (MEDICARE REPLACEMENT/AD VANTAGE - HMO) [id number] L Raghavendra P Fanning [id number] Raghavendra Fanning 03/25/2024 2 [place]IC[place] REPLACEMENT [place]) Raghavendra Fanning [id number] Raghavendra Fanning 08/22/2024 1 [employer] - [place] (MEDICARE REPLACEMENT/AD VANTAGE - HMO) [id number] L Raghavendra P Fanning [id number] Raghavendra Fanning 08/22/2024 2 [place] MEDICARE REPLACEMENT PRIMARY) Raghavendra Fanning [id number] Raghavendra Fanning 12/02/2024 1 [employer] - [place] (MEDICARE REPLACEMENT/AD VANTAGE - HMO) [id number] L Raghavendra P Fanning [id number] Raghavendra Fanning Notes Date Note Type Note Provider Name and Address Organization Details Recorded Time 07/05/2023 text/html Pain in lower ba ck and right groin two weeks ago. Has improved . Has rash in multiple areas in past week. Started on his face and spread to other areas. Rash is beginning to improve. Has trouble hearing. Tinnitus for several years. Requests pneumonia vaccine Antonio Cason MD Attn: Accounting[address] [place], [address], [facility] 07/05/2023 12:43:05 11/07/2023 text/html Pain in both groins, mainly on left for the past four months. Discomfort present if clothes are too tight. Pain started when he jumped forward with legs outstretched. Painful after intercourse Antonio Cason MD Attn: Accounting,[address], [place], [address], [facility] 11/07/2023 13:03:53 03/25/2024 text/html Here for a f/u. Has seen urologist and experienced groin increased pain after he started tadalafil 5 mg/d. He stopped med and will discuss with urologist. Saw GS who indicated that IH were too small for surgical intervention Antonio Cason MD Attn: Accounting,[address], [place], [address], [facility] 03/25/2024 11:06:31 08/22/2024 text/html Here for routine f/u. His pelvic pain has improved. Followed by urology and hematology. Wants flu vaccine today. Currently only on vitamin supplements Jeremy Hamilton MA [facility], [place] - [facility] 08/22/2024 11:25:18 12/02/2024 text/html Recently hospitalized. Seen in ED for CP then developed aphasia. Given thrombolytic and sent to stroke center. No obvious cardiac or neurologic ischemic changes. Left carotid >80% occlusion. Received stent-assisted angioplasty. Antonio Cason MD Attn: Accounting,[address], [place], [address], [facility] 12/02/2024 12:55:01
--- OUTSIDE RECORDS SUMMARY | 2024-12-27 10:43 | XMS_ITS | Continuity of Care Document ---
Author Organization [facility] Address [address] [place] [address] Phone Care Team Providers Care Track Greaser Name Role Phone Lupe Heaton Unavailable Unavailable Advance Directives Directive Yes / No Effective Date File Name No Information Encounters Encounter Description Practice Location Reason(s) For Visit Diagnoses Date Provider Providers Copied on Encounter [facility], [id number] [place] [address] [address], [place], [place], [id number], [place] tel:[phone] [facility] No Information Apr-2 7-200 1 Florina Andrade. [address] , [address], [place], [address], [place]. tel:[phone] Family History Family Member Type Diagnosis Age [...]
--- OUTSIDE RECORDS SUMMARY | 2024-12-27 10:43 | XMS_ITS | Clinical Summary ---
[facility] Address [address] [facility] [place] [address] Care Team Providers Care Gamma Operator Name Role Phone Antonio Downing MD [...] Comments Blood Pressure 121/68 07/01/2024 10:15 AM SHIRT BANDER Pulse 62 07/01/2024 10:15 AM SHIRT BANDER Temperature 36.7 C (98 F) 07/01/2024 10:15 AM SHIRT BANDER Respiratory Rate 16 07/01/2024 10:15 AM SHIRT BANDER Oxygen Saturation 96% 07/01/2024 10:15 AM SHIRT BANDER Inhaled Oxygen Concentration - - Weight 86.6 kg (191 lb) 07/01/2024 10:15 AM SHIRT BANDER Height 177.8 cm (5' 10 ) 02/24/2023 10:58 AM CDT Body Mass Index 27.41 02/24/2023 10:58 AM CDT Plan of Treatment Upcoming Encounters Date Type Department Care Team (Late st Contact Info) Description 12/31/2024 11:00 AM CDT Office Visit [facility] Oncology and Hematology - [place] [address] [place] [address] [facility] [address] [place] [address] Jaswinder Diaz MD [address] [facility] [address] [place] [address] Health Maintenance Due Date Last [...] INFLUENZA VACCINE (#1) 2024 COVID-19 Vaccine ( - season) 2024, 10/05/2020 Medical Devices Implanted Type Area Firer Boiler Device Identifier Shelf Expiration Date Model / Serial / Lot Port Powerport Clearvue 8fr Mri [id number] - [id number] Implanted:Qty : 1 on 09/29/2021 by Juan Francisco Louise MD at [facility] Port Right: Chest [employer] [id number] 12/04/2022 [id number] / / [id number] Pins Description:pins in right an kle/ heel Insurance [place] Member Subscriber Plan / Payer (Ef fective 2021-Present) Name:Raghavendra Haddad Relation to Subscriber:Self Name:Raghavendra Haddad Payer ID:Not on file Group ID:Not on file Type:Medicaid Address: [address] [facility] Address: [facility] [id number] [place] [phone] [id number] Subscriber Plan / Payer (Ef fective 2021-Present) Name:Raghavendra Haddad Relation to Subscriber:Self Name:Raghavendra Haddad Payer ID:Not on file Group ID:Not on file Type:Medicaid Address: [address] Advance Directives For more information, please contact: [phone] * Full Code (Latest Code Status on File) Date Activated Date Inactivated Comments 09/29/2021 4:58 PM 09/29/2021 8:12 PM * Full Code Date Activated Date Inactivated Comments 09/29/2021 12:54 PM 09/29/2021 4:58 PM Care Teams Gamma Operator Relationship Specialty Start Date End Date Antonio Downing MD [address] [place] [address] PCP - General Gastroenterology 05/10/19
--- OUTSIDE RECORDS SUMMARY | 2024-12-27 10:43 | XMS_ITS | Clinical Summary ---
Author Organization [facility] Address [address] [place] [address] Care Team Providers Care Exercise Teacher Name Role Phone Antonio Downing MD Primary Care Provider [phone] Source Comments [facility],non-owned Affiliates and Associated Physician Practices is amultiple site organization consisting of ambulatory clinics and hospital sitesin [place], [place], [place] and [place]. This disclosure is being madepursuant to the Care Everywhere program and may not contain all information available regarding this patient. Last updated 18.[facility] Allergies No known active allergies Medications * Be aware that medications may not be up to date on this document. Alwaysverify current medications with the patient. cyanocobalamin (Vitamin B-12) 1000 MCG tablet Take 2 (two) tablets by mouth at bedtime Active ferrous sulfate 325 (65 FE) MG tablet Take 1 (one) tablet by mouth at bedtime Active Multiple Vitamins-Minera ls (ONE-A-DAY MENS 50+ ADVANTAGE PO) Take 1 tablet by mouth at bedtime Active aspirin (Aspirin) 81 MG chew tablet Take 1 (one) tablet by mouth once daily 30 tablet 2 11/23/2024 Active atorvastatin (Lipitor) 20 MG tablet Take 1 (one) tablet by mouth at bedtime 30 tablet 2 11/23/2024 Active clopidogrel (plaVIX) 75 MG tablet Take 1 (one) tablet by mouth once daily 30 tablet 2 11/23/2024 Active Active Problems Problem Noted Date Diagnosed Date Acute ischemic stroke 11/21/2024 Unspecified fracture of right calcaneus, sequela 10/30/2017 Achilles tendinitis of right lower extremity Primary osteoarthritis, right ankle and foot Closed fracture of right calcaneus 09/30/2013 Pain in right ankle 04/25/2012 Encounters Date Type Department Care Team Description 11/23/2024 Travel 11/21/2024 12:03 PM CDT - 11/23/2024 12:02 PM CDT Hospital Encounter [facility]OS[facility] [address] [place] [address] Aubrey Saenz MD Neurology Discharge Disposition: Home or Self Care from Last 3 Months Family History Medical History Relation Name Comments Cancer Mother Status: d Heart Disease Mother Relation Name Status Comments Mother Social History Tobacco Use Types Packs/Day Years Used Date Smoking Tobacco: Never Smokeless Tobacco: Never Tobacco Cessation:Counseling Given: Yes Alcohol Use Standard Drinks/Week Comments No 0 (1 standard drink = 0.6 oz pur e alcohol) AUDIT-C Answer Date Recorded Q1: How often do you have a drink containing alc ohol? Monthly or less 11/22/2024 Q2: How many drinks containi ng alcohol do you have on a typical day when you are drinking? 1 or 2 11/22/2024 Q3: How often do you have si x or more drinks on one occasion? Never 11/22/2024 Overall Financial Resource Strain (CARDIA) Answe r Date Recorded How hard is it for you to pa y for the very basics like food, housing, medical care, and heating? Not hard at all 11/23/2024 PHQ-2 Answer Date Recorded Patient Health Questionnaire-2 Score 0 11/23/2024 [facility] of Occupat ional Health - Occupational Stress Questionnaire Answer Date Recorded Do you feel stress - tense, restless, nervous, or anxious, or unable to sleep at night because your mind is troubled all the time - these days? Not at all 11/23/2024 Hunger Vital Sign Answer Date Recorded Within the past 12 months, y ou worried that your food would run out before you got the money to buy more. Never true 11/24/19 25 Within the past 12 months, t he food you bought just didn't last and you didn't have money to get more. Never true 11/23/2024 PRAPARE - Transportation Answer Date Re corded In the past 12 months, has l ack of transportation kept you from medical appointments or from getting medications? No 11/05 In the past 12 months, has l ack of transportation kept you from meetings, work, or from getting things needed for daily living? No 11/23/2024 Housing Stability Vital Sign Answer Talib e Recorded In the last 12 months, was t here a time when you were not able to pay the mortgage or rent on time? No 11/23/2024 In the past 12 months, how m any times have you moved where you were living? 0 11/23/2024 At any time in the past 12 m [facility], were you homeless or living in a nursing home (including now)? No 11/23/2024 Sex and Gender Information Value Date Recorded Sex Assigned at Not on file Legal Sex Male 5:25 PM [employer] Gender Identity Not on file Sexual Orientation Not on file Last Filed Vital Signs Vital Sign Reading Time Taken Comments Blood Pressure 136/70 11/23/2024 11:29 AM CDT Pulse 85 11/23/2024 11:29 AM CDT Temperature 36.7 C (98.1 F) 11/23/2024 7:25 AM CDT Respiratory Rate 17 11/23/2024 11:29 AM CDT Oxygen Saturation 98% 11/23/2024 11:29 AM CDT Inhaled Oxygen Concentration - - Weight 87.5 kg (193 lb) 11/22/2024 9:45 AM CDT Height 177.8 cm (5' 10 ) 11/22/2024 9:45 AM CDT Body Mass Index 27.69 11/22/2024 9:45 AM CDT Plan of Treatment Upcoming Encounters Date Type Department Care Team (Late st Contact Info) Description 12/31/2024 3:20 PM CDT Office Visit [facility] Neurosciences [id number] [address] [place] [phone] [place] [address] [place] [phone] Health Maintenance Due Date Last Done Comments COLOGUARD (AGES 45-75) - COLON CA SCREENING 1955 COLON MONITORING 1955 COLONOSCOPY - COLON CA SCREENING 1955 CT COLONOGRAPHY - COLON CA SCREENING 1955 Colorectal Cancer Screening 1955 FIT - COLON CA SCREENING 1955 FLEX SIG - COLON CA SCREENING 1955 HEPATITIS C SCREENING 02/16/1972 DTAP/TDAP/TD VACCINES (1 - Tdap) 1973 PNEUMOCOCCAL VACCINE 50+ (1 of 2 - PCV) 1973 ZOSTER VACCINE (1 of 2) 1973 Respiratory Syncytial Virus (RSV) Vaccine Pt: or over 60 yrs (1 - Risk 60-74 years 1-dose series) 2014 COVID-19 VACCINE (3 - season) 2024 06/30/2021, 10/13/2020 DEPRESSION SCREENING 08/07/2024 MEDICARE AWV CALENDAR YEAR 2024 SCREENING FOR DIABETES 11/24/2027 , 11/23/2024, 11/22/2024, Additional history exists INFLUENZA VACCINE Completed 08/22/2024, 06/30/2021 HEPATITIS B VACCINE Aged Out No longe r eligible based on patient's age to complete this topic HIB VACCINE Aged Out No longer eligi ble based on patient's age to complete this topic HPV VACCINE Aged Out No longer eligi ble based on patient's age to complete this topic MENINGOCOCCAL (Group B) VACCINE SHARED DECISION-MAKING Aged Out No longer eligible based on patient's age to complete this topic MENINGOCOCCAL GROUPS A/C/Y/W VACCINE Aged Out No longer eligible based on patient's age to complete this topic Medical Devices Implanted Type Area Sr. Payroll Processor Device Identifier Shelf Expiration Date Model / Serial / Lot Carotid Wall Tent-11/22/2024 Implanted:Qty: 1 on 11/22/2024 by Aubrey Saenz MD Left: Carotid [employer] / [id number] / [id number] Description:Left ICA Procedures Procedure Name Priority Date/Time Associated Diagnosis Comments GLUCOSE - POINT OF CARE Routine 11/23/2024 7:23 AM CDT HEMOGLOBIN A1C AM Draw 11/23/2024 5:53 AM CDT GLUCOSE - POINT OF CARE Routine 11/22/2024 8:24 PM CDT GLUCOSE - POINT OF CARE Routine 11/22/2024 5:35 PM CDT IR CAROTID CEREBRAL ANGIOGRAM Routine 11/22/2024 2:44 PM CDT Acute ischemic stroke (HCC) MRI BRAIN WO CONTRAST Routine 11/22/2024 12:46 PM CDT Acute ischemic stroke (HCC) ECHO COMPLETE W CONTRAST Routine 11/22/2024 11:26 AM CDT Acute ischemic stroke (HCC) NM MYOCARD PERF REST STRESS Routine 11/22/2024 11:21 AM CDT Precordial pain STRESS TEST Routine 11/22/2024 10:00 AM CDT Precordial pain GLUCOSE - POINT OF CARE Routine 11/22/2024 7:31 AM CDT LIPID PROFILE AM Draw 11/22/2024 3:48 AM CDT HEMOGLOBIN A1C AM Draw 11/22/2024 3:48 AM CDT CBC W AUTO DIFFERENTIAL AM Draw 11/22/2024 3:48 AM CDT BASIC METABOLIC PANEL (CALCIUM TOTAL) AM Draw 11/22/2024 3:48 AM CDT GLUCOSE - POINT OF CARE Routine 11/21/2024 9:40 PM CDT TROPONIN-I HIGH SENSITIVE REFLEX 1HOUR Timed 11/21/2024 5:07 PM CDT GLUCOSE - POINT OF CARE Routine 11/21/2024 5:05 PM CDT TROPONIN-I HIGH SENSITIVE BASELINE + 1HR Routine 11/21/2024 4:24 PM CDT XR CHEST 1VW PORTABLE Routine 11/21/2024 3:24 PM CDT Acute ischemic stroke (HCC) PT EVAL AND TREAT Routine 11/21/2024 1:4 6 PM CDT GLUCOSE - POINT OF CARE Routine 11/21/2024 12:12 PM CDT from Last 3 Months Results * (ABNORMAL) GLUCOSE - POINT OF CARE (11/23/2024 7:23 AM CDT) Only the most recent of7 resultswithin the time period is included. [facility] Glucose WB/POC 104(H) 70 - 99 mg/dL 11/23/2024 7:32 AM CDT [facility] Specimen Type Cap Fingerstick 2024 7:32 AM CDT [facility] Blood BLOOD SPECIMEN / Unknown 11/23/2024 7:23 AM CDT 11/23/2024 7:32 AM CDT Aubrey Saenz MD LAB - POINT OF CARE ORDERABL ES Final Result [facility] [address] [place] [address] * HEMOGLOBIN A1C (11/23/2024 5:53 AM CDT) Only the most recent of2 resultswithin the time period is included. [facility] Hemoglobin A1c 5.1 <5.7 % 11/23/2024 6:08 AM CDT [facility] Estimated Average Glucose 100 mg/dL 11/23/2024 6:08 AM CDT [facility] Blood BLOOD SPECIMEN / Unknown Venipuncture / Unknown 11/23/2024 5:53 AM CDT 11/23/2024 5:57 AM CDT Narrative [facility] - 11/23/2024 6:08 AM CDT HbA1c Interpretation: Normal: < 5.7% Pre-diabetes: 5.7-6.4% Diabetes: Equal to or greater than 6.5% Test results diagnostic of diabetes should be repeated for confirmation. Treatment target values recommended by ADA and other clinical organizations should be used to evaluate metabolic control in patients. This test should not replace glucose testing for patients with Type 1 diabetes, pediatric patients, or women. Falsely low HbA1c results may be observed in patients with clinical conditions that shorten erythrocyte life span or decrease mean erythrocyte age such as the presence of unstable hemoglobin variants, elevated hemoglobin F level or other causes of hemolytic anemia. HbA1c may not accurately reflect glycemic control when clinical conditions that affect erythrocyte survival are present. Severe Iron deficiency anemia may yield falsely high results. Hemoglobin A1c assay should not be used to diagnose or monitor diabetes in patients with malignancy, recent blood transfusion, chronic kidney or liver disease. This method may yield falsely low results when hemoglobin (HbF) exceeds 5% in the specimen. The Goodwin Alinity assay for the measurement of HbA1c is a National Glycohemoglobin Standardization Program (NGSP) certified method. Iris Dominguez MARKETING ANALYTICS ANALYST-SWING DRIVER LAB - CHEMISTRY ORDERAB LES Final Result [facility] [address] [address] [id number] * IR Carotid Cerebral Angiogram (11/22/2024 2:44 PM CDT) Anatomical Region Laterality Modality Head Other Narrative 11/22/2024 2:51 PM CDT Aubery Saenz MD 11/22/2024 10:56 PM Procedure: Cerebral angiogram and Cervical Carotid Stenting Comparison study: CTA History: The patient a 69-year-old male who presents > 70% symptomatic carotid stenosis by non-invasive vascular imaging. Pyrotechnist: Kem Saenz Vessels: Ultrasound guided access of femoral artery Right common carotid artery angiogram: Cervical and Cerebral Left common carotid artery angiogram: Cervical and Cerebral Left vertebral artery angiogram: Cerebral Deployment of Spider RX 6mm filter within the petrous carotid segment Angioplasty with Aviator 5 x 30 mm rapid exchange balloon Self-expanding 10 x 24mm carotid wall stent deployment within left Cervical Internal Carotid Artery Angiography through the existing catheter Right femoral artery angiogram ANESTHESIA: Moderate sedation on this adult patient ws ordered by the boring mill operator, administered intravenously in my presence, and monitored by the procedure nurse as an independent trained observer who was present throughout the procedure. The following parameters were monitored: oxygen saturation, heart rate, blood pressure, and response to care. Intra-service sedation start time was 13:49 and end time was 14:35 during which I was present. Total physician intra-service sedation time was 55 minutes. For details on sedation patient evaluation, please review the evaluation in [facility]. For details on monitored clinical parameters during the intra-service sedation time, please review the procedure nurse documentation in [facility]. Procedural detail: The risks, benefits, and alternatives to procedure were discussed in detail with the patient. These included but were not limited to the risk of blood loss, vessel injury, stroke, renal injury, and contrast allergy. The patient was brought to the biplane angiography suite where he underwent prep and drape procedures. Limited ultrasound of the common femoral artery demonstrated a patent vessel. The take off of the profunda and other arteries were identified. A garcia scale image was documented. The right common femoral artery was accessed using a micropuncture needle. The needle entry was documented. Following a series of exchanges, a 5 Romansh david 2 catheter was navigated into the aortic arch. The catheter was used to select the left subclavian artery followed by the left vertebral artery and a cerebral angiogram was obtained. The catheter was returned to the arch and used to select the left common carotid artery and a cervical and cerebral angiogram were obtained. The catheter was returned to the arch and used to select the brachiocephalic artery followed by the right common carotid artery and a cervical and cerebral angiogram were obtained. The diagnostic catheter was removed from the arterial system and replaced by a 6F cook shuttle guide sheath that was positioned proximal to the left carotid stenosis origin. Through this catheter a Transcend Floppy 200cm microwire was inserted and used to cross the stenosis and positioned at the petrous carotid segment. Over this wire a Spider RX 6 mm filter was navigate and deployed at the cervico-petrous junction. The Transcend wire was then removed. Over the filter wire a 5 x 30 mm rapid exchange balloon was inserted and used to cross the stenosis and inflated to nominal pressure and quickly deflated. This was removed from the arterial system. The carotid wall stent was then inserted and positioned over the stenotic segment and deployed. An angiogram through the existing catheter was then performed. The filter was then recaptured. The right femoral artery angiogram was obtained through the sheath. All catheters and sheaths were removed from the arterial system. Hemostasis was achieved using a 6 Romansh Angio-Seal closure device. Hemostasis was immediate at the end of the closure procedure. The right dorsalis pedis pulse was palpable at the end of the closure procedure. The patient tolerated the procedure without immediate complications. He was returned to the recovery area and hemodynamically stable condition neurologically unchanged. The estimated blood loss was less than 100 mL. A total of 11.2 minutes of fluoroscopic time and 44 ml of Isovue-370 contrast were utilized for the study. Findings: There was good arterial, capillary, and venous opacification of all angiographic runs. The left vertebral artery angiogram reveals a V3, V4, and vertebrobasilar junction that are normal in course and caliber. The major vessels to the cerebellum are normal in course and caliber. The basilar artery and posterior cerebral arteries are also normal in course and caliber. The venous drainage is also normal. The left common carotid artery angiogram reveals a normal course and caliber the intracranial internal carotid artery. The middle cerebral artery and anterior cerebral artery are also normal in course and caliber as is the venous drainage. There was a 85% stenosis of the L ICA at the bulb. The right common carotid artery angiogram reveals a normal course and caliber the intracranial internal carotid artery. The middle cerebral artery and anterior cerebral artery are also normal in course and caliber as is the venous drainage. The angiogram through the existing catheter reveals revascularization of the carotid bulb with 30% residual stenosis and no evidence of branch artery occlusion. The right femoral artery angiogram reveals a puncture site above the femoral bifurcation. Impression: Success stent-assisting angioplasty of Left cervical carotid segment stenosis. Aubrey Saenz MD us Iris Dominguez MARKETING ANALYTICS ANALYST-SWING DRIVER IR ORDERABLES Final R esult * MRI BRAIN NON CONTRAST (11/22/2024 12:46 PM CDT) Anatomical Region Laterality Modality Head Magnetic Resonan ce 11/22/2024 1:32 PM CDT Impressions 11/22/2024 3:26 PM CDT IMPRESSION: 1.No acute ischemic insult evident. 2.Prior subcortical microhemorrhage right parietal. Primary consideration is sequela of prior small vessel ischemic insult. Edited by Maryse Mckeon on 11/22/2024 2:00 PM > Interpreting Provider: Jagdeep Edmond MD on 11/22/2024 3:26 PM Narrative 11/22/2024 3:26 PM CDT MRI BRAIN WITHOUT CONTRAST CLINICAL INDICATION: Neuro deficit, nausea, vomiting, stroke suspected, difficulty speaking, leukemia. TECHNIQUE: Multisequence, multiplanar MRI sequences of the brain without contrast. FINDINGS: No comparison exam. No restricted diffusion to denote an acute ischemic insult. There is normal flow void present in the large vessels of the skull base at the [place] of [place]. Left maxillary mucosal thickening. No CP angle mass lesion. The ventricles are normal in size and configuration. Prior microhemorrhage right parietal. White matter changes are mild for age. Therefore, differential for microhemorrhage includes underlying isolated vasculopathy, prior trauma, prior ischemic, etc. There is no obstructive hydrocephalus. No proteinaceous extra-axial fluid collection. High signal intensity is mild periventricular and subcortical consistent with sequela of deep white matter small vessel ischemic insults. No medial temporal lobe signal abnormality. Left nasal septal deviation. Left maxillary mucous retention cyst. The globes and postseptal soft tissues are normal. Procedure Note Jagdeep Edmond MD - 11/22/2024 MRI BRAIN WITHOUT CONTRAST CLINICAL INDICATION: Neuro deficit, nausea, vomiting, stroke suspected, difficulty speaking, leukemia. TECHNIQUE: Multisequence, multiplanar MRI sequences of the brain without contrast. FINDINGS: No comparison exam. No restricted diffusion to denote an acute ischemic insult. There is normal flow void present in the large vessels of theskull base at the [place]. Left maxillary mucosal thickening. No CP angle mass lesion. Theventricles are normal in size and configuration. Prior microhemorrhage rightparietal. White matter changes are mild for age. Therefore, differential for microhemorrhage includes underlying isolated vasculopathy, prior trauma, prior ischemic, etc. There is no obstructive hydrocephalus. No proteinaceous extra-axial fluid collection. High signal intensity is mild periventricular and subcortical consistent with sequela of deepwhite matter small vessel ischemic insults. No medial temporal lobe signal abnormality. Left nasal septal deviation. Left maxillary mucous retention cyst. The globes and postseptal soft tissues are normal. IMPRESSION: 1.No acute ischemic insult evident. 2.Prior subcortical microhemorrhage right parietal. Primaryconsideration is sequela of prior small vessel ischemic insult. Edited by Maryse Mckeon on 11/22/2024 2:00 PM > Interpreting Provider: Jagdeep Edmond MD on 11/22/2024 3:26 PM us Iris Dominguez MARKETING ANALYTICS ANALYST-SWING DRIVER MR ORDERABLES Final R esult * ECHO COMPLETE W CONTRAST (11/22/2024 11:26 AM CDT) LVOT diam 2.325 cm SSM CV FUJ I PACS LV biplane EF 61.532 % SSM CV FUJI PACS LV A2C EF 49.143 % SSM CV FUJ I PACS LV A4C EF 72.244 % SSM CV FUJ I PACS LV EDV A2C 60.665 ml SSM CV FU JI PACS LV EDV A4C 66.642 ml SSM CV FU JI PACS LV ESV A2C 30.852 ml SSM CV FU JI PACS LV ESV A4C 18.497 ml SSM CV FU JI PACS LVOT pk grad 6.385 mmHg SSM CV FUJI PACS LVOT pk karsten 126.342 cm/s SSM CV F UJI PACS LVOT VTI 21.991 cm SSM CV FUJ I PACS AV area pk karsten 4.069 cm SSM CV FUJI PACS AV area cont VTI 3.579 cm SSM CV FUJI PACS AV pk grad 6.951 mmHg SSM CV FU JI PACS AV mn grad 4.281 mmHg SSM CV FU JI PACS AV pk karsten 131.822 cm/s SSM CV FUJ I PACS AV VTI 26.089 cm SSM CV FUJ I PACS MV A pk karsten 81.561 cm/s SSM CV F UJI PACS MV E pk karsten 60.21 cm/s SSM CV F UJI PACS MV E' lateral karsten 8.805 cm/s SS M CV FUJI PACS PV pk karsten 109.67 cm/s SSM CV FUJ I PACS TAPSE 2.465 cm SSM CV FUJ I PACS AV area index 1.708 cm /m SSM CV FUJI PACS Dimensionless Index 0.843 unitless SSM CV FUJI PACS Myocardial strain charge 2 unitless [facility] [employer] PACS Anatomical Region Laterality Modality Ultrasound 11/22/2024 11:0 4 AM CDT Narrative 11/22/2024 12:44 PM CDT Summary * The left ventricle is normal in size with normal systolic function and an estimated ejection fraction of 55-60% by visual estimate. Left ventricular wall motion is normal. * The left ventricular diastolic function is consistent with grade I diastolic dysfunction and normal left atrial filling pressure. * Right ventricle is normal in size with normal systolic function. * Unable to assess pulmonary pressures due to a lack of tricuspid and pulmonic regurgitation. * No significant valvular abnormalities. Patient Info Name: Elizabeth Mills Age: 69 years : 1955 Gender: Male Ht: 70 in Wt: 193 lb BSA: 2.10 m2 HR: 78 bpm Exam Date: 11/22/2024 11:04 AM Patient Status: I/P Study Site: [facility] Primary Location: [facility] EStudy Info Exam Type: ECHO COMPLETE W CONTRAST Indications I63.9 - Acute ischemic stroke (HCC) Procedure(s) * A complete 2D, color Doppler, spectral Doppler, and M-Mode transthoracic echocardiogram was performed. * An Ultrasound Enhancing Agent (UEA) was utilized to enhance endocardial definition, opacify the left ventricle and further assess left ventricular function and wall motion. Contrast/Agitated Saline Contrast / Saline: Definity Amount: --- ml Staff Referring Physician: Iris Dominguez Ordering Provider: Iris Dominguez Attending Physician: Iris Dominguez Hurl Shaker: Anup Mosquera Left Ventricle The left ventricle is normal in size. Left ventricular systolic function is normal with an estimated ejection fraction of 55-60% by visual estimate. The left ventricular mass is normal. Left ventricular segmental wall motion is normal. The left ventricular diastolic function is consistent with grade I diastolic dysfunction and normal left atrial filling pressure. Right Ventricle The right ventricle is normal in size. Right ventricular systolic function is normal. Left Atrium The left atrium is normal in size. Right Atrium The right atrium is normal in size. Atrial Septum Intact interatrial septum visualized by 2D and color Doppler imaging. Aortic Valve The aortic valve is trileaflet. There is no aortic valve stenosis. There is no aortic valve regurgitation. Pulmonic Valve The pulmonic valve is normal. There is no pulmonic valve stenosis. There is no pulmonic regurgitation. Mitral Valve The mitral valve is normal. There is no mitral valve stenosis. There is no mitral valve regurgitation. Tricuspid Valve The tricuspid valve is normal. There is no tricuspid valve regurgitation. Unable to assess pulmonary pressures due to a lack of tricuspid and pulmonic regurgitation. Inferior Vena Cava The inferior vena cava is normal in size (< 2.1 cm). Pericardium/Pleural There is no pericardial effusion. Aorta The aortic root at the sinus of Valsalva is normal in size. The ascending aorta is normal in size. Measurements Left Ventricular Outflow Tract Name Value Normal LVOT 2D LVOT Diameter 2.3 cm LVOT Area 4.2 cm2 LVOT Doppler LVOT Peak Velocity 1.3 m/s LVOT Peak Gradient 6 mmHg LVOT Mean Velocity 91.72 cm/s LVOT Mean Gradient 4 mmHg LVOT VTI 22.0 cm LVOT VTI/AV VTI Ratio 0.8 LVOT Stroke Volume 93 ml LVOT Stroke Volume Index 45 ml/m2 35-58 LVOT CO 7.3 l/min LVOT CI 3.5 l/min/m2 Pulmonic Valve Name Value Normal PV Doppler PV Peak Velocity 1.1 m/s PV Peak Gradient 5 mmHg Mitral Valve Name Value Normal MV Doppler MV PHT 78 ms MV Area (PHT) 2.80 cm2 4.00-5.00 MV Diastolic Function MV E Peak Velocity 0.6 m/sec MV A Peak Velocity 0.8 m/sec MV E/A 0.7 MV Decel Time (PW) 319 ms MV Annular TDI MV Septal e' Velocity 6 cm/s >=8 MV E/e' (Septal) 10 <=8 MV Lateral e' Velocity 9 cm/s >=10 MV E/e' (Lateral) 7 <=8 MV e' Average 7 cm/s MV E/e' (Average) 8 Aorta Name Value Normal Ascending Aorta Ao Root Diameter (MM) 4.0 cm Ao Root Diam Index (MM) 1.9 cm/m2 Aortic Valve Name Value Normal AV 2D/MM AV Cusp Sep (MM) 2.2 cm AV Doppler AV Peak Velocity 1.32 m/s AV Peak Gradient 7 mmHg AV Mean Gradient 4 mmHg AV VTI 26 cm AV Area (Cont Eq VTI) 3.58 cm2 >=2.00 AV Area (Cont Eq Karsten) 4.07 cm2 AV DI (VTI) 0.84 AV DI (Karsten) 0.96 AV Regurgitation 2D LVOT Area 4.24 cm2 Ventricles Name Value Normal LV Fractional Shortening/Ejection Fraction 2D/MM LV Diastolic Volume (4C MOD) 67 ml LV EF (4C MOD) 72 % LV Diastolic Volume (2C MOD) 61 ml LV EF (2C MOD) 49 % LV Diastolic Volume (BP MOD) 65 ml 62-150 LV Diastolic Volume Index (BP MOD) 31 ml/m2 34-74 LV Systolic Volume (BP MOD) 25 ml 21-61 LV Systolic Volume Index (BP MOD) 12 ml/m2 11-31 LV EF (BP MOD) 62 % 52-72 LV Diastolic Length (4C) 7.1 cm LV Systolic Length (4C) 6.4 cm LV Stroke Volume (4C MOD) 48 ml RV Dimensions 2D/MM TAPSE 2.5 cm >=1.7 Atria Name Value Normal LA Dimensions LA Dimension (MM) 2.6 cm 3.0-4.1 Report Signatures Finalized by Surinder Mullen on 11/22/2024 12:44 PM Procedure Note Surinder Mullen MD - 11/22/2024 Summary * The left ventricle is normal in size with normal systolic function andan estimated ejection fraction of 55-60% by visual estimate. Leftventricular wall motion is normal. * The left ventricular diastolic function is consistent with grade I diastolic dysfunction and normal left atrial filling pressure. * Right ventricle is normal in size with normal systolic function. * Unable to assess pulmonary pressures due to a lack of tricuspid and pulmonic regurgitation. * No significant valvular abnormalities. Patient Info Name: Elizabeth Mills Age: 69 years : 1955 Gender: Male Ht: 70 in Wt: 193 lb BSA: 2.10 m2 HR: 78 bpm Exam Date: 11/22/2024 11:04 AM Patient Status: I/P Study Site: [facility] Primary Location: [facility] EStudy Info Exam Type: ECHO COMPLETE W CONTRAST Indications I63.9 - Acute ischemic stroke (HCC) Procedure(s) * A complete 2D, color Doppler, spectral Doppler, and M-Modetransthoracic echocardiogram was performed. * An Ultrasound Enhancing Agent (UEA) was utilized to enhanceendocardial definition, opacify the left ventricle and further assess leftventricular function and wall motion. Contrast/Agitated Saline Contrast / Saline: Definity Amount: --- ml Staff Referring Physician: Iris Dominguez Ordering Provider: Iris Dominguez Attending Physician: Iris Dominguez Hurl Shaker: Anup Mosquera Left Ventricle The left ventricle is normal in size. Left ventricular systolic functionis normal with an estimated ejection fraction of 55-60% by visual estimate.The left ventricular mass is normal. Left ventricular segmental wall motionis normal. The left ventricular diastolic function is consistent with gradeI diastolic dysfunction and normal left atrial filling pressure. Right Ventricle The right ventricle is normal in size. Right ventricular systolicfunction is normal. Left Atrium The left atrium is normal in size. Right Atrium The right atrium is normal in size. Atrial Septum Intact interatrial septum visualized by 2D and color Doppler imaging. Aortic Valve The aortic valve is trileaflet. There is no aortic valve stenosis. Thereis no aortic valve regurgitation. Pulmonic Valve The pulmonic valve is normal. There is no pulmonic valve stenosis. Thereis no pulmonic regurgitation. Mitral Valve The mitral valve is normal. There is no mitral valve stenosis. There isno mitral valve regurgitation. Tricuspid Valve The tricuspid valve is normal. There is no tricuspid valveregurgitation. Unable to assess pulmonary pressures due to a lack of tricuspid andpulmonic regurgitation. Inferior Vena Cava The inferior vena cava is normal in size (< 2.1 cm). Pericardium/Pleural There is no pericardial effusion. Aorta The aortic root at the sinus of Valsalva is normal in size. Theascending aorta is normal in size. Measurements Left Ventricular Outflow Tract Name Value Normal LVOT 2D LVOT Diameter 2.3 cm LVOT Area 4.2 cm2 LVOT Doppler LVOT Peak Velocity 1.3 m/s LVOT Peak Gradient 6 mmHg LVOT Mean Velocity 91.72 cm/s LVOT Mean Gradient 4 mmHg LVOT VTI 22.0 cm LVOT VTI/AV VTI Ratio 0.8 LVOT Stroke Volume 93 ml LVOT Stroke Volume Index 45 ml/m2 35-58 LVOT CO 7.3 l/min LVOT CI 3.5 l/min/m2 Pulmonic Valve Name Value Normal PV Doppler PV Peak Velocity 1.1 m/s PV Peak Gradient 5 mmHg Mitral Valve Name Value Normal MV Doppler MV PHT 78 ms MV Area (PHT) 2.80 cm2 4.00-5.00 MV Diastolic Function MV E Peak Velocity 0.6 m/sec MV A Peak Velocity 0.8 m/sec MV E/A 0.7 MV Decel Time (PW) 319 ms MV Annular TDI MV Septal e' Velocity 6 cm/s >=8 MV E/e' (Septal) 10 <=8 MV Lateral e' Velocity 9 cm/s >=10 MV E/e' (Lateral) 7 <=8 MV e' Average 7 cm/s MV E/e' (Average) 8 Aorta Name Value Normal Ascending Aorta Ao Root Diameter (MM) 4.0 cm Ao Root Diam Index (MM) 1.9 cm/m2 Aortic Valve Name Value Normal AV 2D/MM AV Cusp Sep (MM) 2.2 cm AV Doppler AV Peak Velocity 1.32 m/s AV Peak Gradient 7 mmHg AV Mean Gradient 4 mmHg AV VTI 26 cm AV Area (Cont Eq VTI) 3.58 cm2 >=2.00 AV Area (Cont Eq Karsten) 4.07 cm2 AV DI (VTI) 0.84 AV DI (Karsten) 0.96 AV Regurgitation 2D LVOT Area 4.24 cm2 Ventricles Name Value Normal LV Fractional Shortening/Ejection Fraction 2D/MM LV Diastolic Volume (4C MOD) 67 ml LV EF (4C MOD) 72 % LV Diastolic Volume (2C MOD) 61 ml LV EF (2C MOD) 49 % LV Diastolic Volume (BP MOD) 65 ml 62-150 LV Diastolic Volume Index (BP MOD) 31 ml/m2 34-74 LV Systolic Volume (BP MOD) 25 ml 21-61 LV Systolic Volume Index (BP MOD) 12 ml/m2 11-31 LV EF (BP MOD) 62 % 52-72 LV Diastolic Length (4C) 7.1 cm LV Systolic Length (4C) 6.4 cm LV Stroke Volume (4C MOD) 48 ml RV Dimensions 2D/MM TAPSE 2.5 cm >=1.7 Atria Name Value Normal LA Dimensions LA Dimension (MM) 2.6 cm 3.0-4.1 Report Signatures Finalized by Surinder Mullen on 11/22/2024 12:44 PM us Iris Dominguez MARKETING ANALYTICS ANALYST-[employer] ECHO CUPID Final R esult * NM MYOCARD PERFUSION SPECT STRESS AND REST (11/22/2024 11:21 AM CDT) Anatomical Region Laterality Modality Chest Nuclear Medicine 11/22/2024 2:48 PM CDT Impressions 11/22/2024 2:50 PM CDT IMPRESSION: 1. No evidence of pharmacologically induced reversible defect to suggest stress-induced ischemia. 2. Normal left ventricle wall motion, with a composite left ventricular ejection fraction estimate 93% which is likely artifactually elevated. > Interpreting Provider: Edouard Maharaj MD on 11/22/2024 2:50 PM Narrative 11/22/2024 2:50 PM CDT PROCEDURE(s): NM MYOCARD PERF REST STRESS DATE AND TIME OF EXAM(s): 11/22/2024 11:22 AM INDICATION(s): R07.2: Precordial pain COMPARISON(s): None available. RADIOPHARMACEUTICAL: 11.7 mCi of Tc99m Tetrofosmin at rest and 32.5 mCi Tc99m Tetrofosmin at stress. 0.4 mg of Lexiscan given intravenously. TECHNIQUE: After the resting SPECT images were made, the patient was given the Lexiscan dose and the stress dose of tracer was given, and the patient was reimaged, using SPECT technique. FINDINGS: Stress and rest images show homogeneous uptake of radiotracer throughout the left ventricle. No significant reversible perfusion defect is seen. Decreased radiotracer activity along the inferior wall which is more pronounced on the rest phase imaging as opposed to stress phase imaging likely represents artifact, but infarct is not excluded. WALL MOTION ANALYSIS: 3-D reconstruction of the gated data shows the left ventricular ejection fraction to measure 93 %. This is likely artifactually elevated. No wall motion abnormality is present. Procedure Note Edouard Maharaj MD - 11/22/2024 PROCEDURE(s): NM MYOCARD PERF REST STRESS DATE AND TIME OF EXAM(s): 11/22/2024 11:22 AM INDICATION(s): R07.2: Precordial pain COMPARISON(s): None available. RADIOPHARMACEUTICAL: 11.7 mCi of Tc99m Tetrofosmin at rest and 32.5 mCi Tc99m Tetrofosmin at stress. 0.4 mg of Lexiscan given intravenously. TECHNIQUE: After the resting SPECT images were made, the patient wasgiven the Lexiscan dose and the stress dose of tracer was given, and thepatient was reimaged, using SPECT technique. FINDINGS: Stress and rest images show homogeneous uptake of radiotracer throughout the left ventricle. No significant reversible perfusiondefect is seen. Decreased radiotracer activity along the inferior wall which is more pronounced on the rest phase imaging as opposed to stress phase imaging likely represents artifact, but infarct is not excluded. WALL MOTION ANALYSIS: 3-D reconstruction of the gated data shows theleft ventricular ejection fraction to measure 93 %. This is likelyartifactually elevated. No wall motion abnormality is present. IMPRESSION: 1. No evidence of pharmacologically induced reversible defect tosuggest stress-induced ischemia. 2. Normal left ventricle wall motion, with a composite left ventricular ejection fraction estimate 93% which is likely artifactually elevated. > Interpreting Provider: Edouard Maharaj MD on 11/22/2024 2:50 PM Pramod Hameed MD [place] ORDERABLES Final Result * STRESS TEST Pharm-Lexiscan (Regadenoson) (11/22/2024 10:00 AM CDT) Anatomical Region Laterality Modality Cardiac Electrop hysiology 11/22/2024 6:45 AM CDT Narrative 11/22/2024 12:03 PM CDT Patient Info Name: Elizabeth Mills Age: 69 years : 1955 Gender: Male HR: 73 bpm BP: 144 / 84 mmHg Heart Rhythm: Sinus Rhythm Exam Date: 11/22/2024 6:45 AM Patient Status: I/P Study Site: [facility] Primary Location: [facility] EStudy Info Exam Type: STRESS TEST Indications R07.2 - Precordial pain Procedure(s) * Pharmacological stress test was performed. Staff Referring Physician: Pramod Hameed Ordering Provider: Pramod Hameed Attending Physician: Pramod Hameed Nurse: Elda Hall Nurse: Linda Weiss Summary * Stress ECG is negative for ischemia. * Nuclear test results to follow. Protocol: Regadenoson Stress ECG Details Stage: Recovery Duration (min): 11 min : 0 sec HR (bpm): 97 SBP (mmHg): 149 DBP (mmHg): 85 Comments: sob with chest heaviness Stage: 2 Duration (min): 2 min : 0 sec HR (bpm): 100 SBP (mmHg): 162 DBP (mmHg): 91 Comments: c/o nausea and is very anxious Stage: 3 Duration (min): 3 min : 0 sec HR (bpm): 91 SBP (mmHg): 153 DBP (mmHg): 89 Comments: Aminophylline 50mg IV given Stage: 4 Duration (min): 4 min : 0 sec HR (bpm): 95 SBP (mmHg): 150 DBP (mmHg): 88 Comments: sx resolved Resting ECG Normal sinus rhythm and ST segments/t-waves at rest. Stress ECG Stress ECG is negative for ischemia. Medications See Epic for a complete list of medications used during the study. Heart Rate Response : Max Predicted HR (bpm): 150 : Target HR (bpm): 128 Report Signatures Finalized by Surinder Mullen on 11/22/2024 12:03 PM Procedure Note Surinder Mullen MD - 11/22/2024 Patient Info Name: Elizabeth Mills Age: 69 years : 1955 Gender: Male HR: 73 bpm BP: 144 / 84 mmHg Heart Rhythm: Sinus Rhythm Exam Date: 11/22/2024 6:45 AM Patient Status: I/P Study Site: [facility] Primary Location: [facility] EStudy Info Exam Type: STRESS TEST Indications R07.2 - Precordial pain Procedure(s) * Pharmacological stress test was performed. Staff Referring Physician: Pramod Hameed Ordering Provider: Pramod Hameed Attending Physician: Pramod Hameed Nurse: Elda Hall Nurse: Linda Weiss Summary * Stress ECG is negative for ischemia. * Nuclear test results to follow. Protocol: Regadenoson Stress ECG Details Stage: Recovery Duration (min): 11 min : 0 sec HR (bpm): 97 SBP (mmHg): 149 DBP (mmHg): 85 Comments: sob with chest heaviness Stage: 2 Duration (min): 2 min : 0 sec HR (bpm): 100 SBP (mmHg): 162 DBP (mmHg): 91 Comments: c/o nausea and is very anxious Stage: 3 Duration (min): 3 min : 0 sec HR (bpm): 91 SBP (mmHg): 153 DBP (mmHg): 89 Comments: Aminophylline 50mg IV given Stage: 4 Duration (min): 4 min : 0 sec HR (bpm): 95 SBP (mmHg): 150 DBP (mmHg): 88 Comments: sx resolved Resting ECG Normal sinus rhythm and ST segments/t-waves at rest. Stress ECG Stress ECG is negative for ischemia. Medications See [employer] for a complete list of medications used during the study. Heart Rate Response : Max Predicted HR (bpm): 150 : Target HR (bpm): 128 Report Signatures Finalized by Surinder Mullen on 11/22/2024 12:03 PM us Pramod Hameed MD [facility] Final Res ult * (ABNORMAL) CBC W AUTO DIFFERENTIAL (11/22/2024 3:48 AM CDT) WBC 12.0(H) 4.0 - 10.7 x10E9/L 11/22/2024 3:57 AM CDT [facility] RBC Count 4.50 4.30 - 5.80 x10E12/L 11/22/2024 3:57 AM CDT [facility] Hemoglobin 14.5 13.3 - 17.5 g/dL 11/22/2024 3:57 AM CDT [facility] Hematocrit 42.6 38.7 - 51.1 % 11/22/2024 3:57 AM CDT [facility] MCV 94.7 80.0 - 98.0 fL 11/22/2024 3:57 AM CDT [facility] MCH 32.2 26.7 - 33.6 pg 11/22/2024 3:57 AM CDT [facility] MCHC 34.0 31.7 - 36.3 g/dL 11/22/2024 3:57 AM CDT [facility] RDW-CV 12.8 11.3 - 14.8 % 11/22/2024 3:57 AM CDT [facility] Platelet Count 260 150 - 420 x10E9/L 11/22/2024 3:57 AM CDT [facility] MPV 8.4 7.8 - 11.4 fL 11/22/2024 3:57 AM CDT [facility] Neutrophil % 56.5 41.0 - 74.0 % 11/22/2024 3:57 AM CDT [facility] Lymphocyte % 34.4 17.0 - 47.0 % 11/22/2024 3:57 AM CDT [facility] Monocyte % 7.0 3.0 - 11.0 % 11/22/2024 3:57 AM CDT [facility] Eosinophil % 1.3 0.0 - 7.0 % 11/22/2024 3:57 AM CDT [facility] Basophil % 0.5 0.0 - 1.6 % 11/22/2024 3:57 AM CDT [facility] Immature Granulocytes % 0.3 0.0 - 1.0 % 11/22/2024 3:57 AM CDT [facility] Neutrophil Absolute 6.77 1.60 - 7.50 x10E9/L 11/22/2024 3:57 AM CDT [facility] Lymphocyte Absolute 4.11 1.00 - 4.40 x10E9/L 11/22/2024 3:57 AM CDT [facility] Monocyte Absolute 0.84 0.15 - 1.00 x10E9/L 11/22/2024 3:57 AM CDT [facility] Eosinophil Absolute 0.15 0.00 - 0.60 x10E9/L 11/22/2024 3:57 AM CDT [facility] Basophil Absolute 0.06 0.00 - 0.13 x10E9/L 11/22/2024 3:57 AM CDT [facility] Blood BLOOD SPECIMEN / Unknown Venipuncture / Unknown 11/22/2024 3:48 AM CDT 11/22/2024 3:53 AM CDT Iris Dominguez MARKETING ANALYTICS ANALYST-[employer] LAB - HEMATOLOGY ORDERA BLES Final Result [facility] [address] [place] [address] * (ABNORMAL) BASIC METABOLIC PANEL (CALCIUM TOTAL) (11/22/2024 3:48 AM CDT) Pathologist [facility] Glucose 113(H) 70 - 99 mg/dL 11/22/2024 4:27 AM CDT [facility] Sodium 140 136 - 145 mmol/L 11/22/2024 4:27 AM CDT [facility] Potassium 4.0 3.5 - 5.1 mmol/L 11/22/2024 4:27 AM CDT [facility] Chloride 110(H) 98 - 107 mmol/L 11/22/2024 4:27 AM CDT [facility] CO2 21(L) 22 - 29 mmol/L 11/22/2024 4:27 AM CDT [facility] Calcium 8.6 8.4 - 10.4 mg/dL 11/22/2024 4:27 AM T [facility] Anion Gap 9 6 - 16 mmol/L 11/22/2024 4:27 AM CDT [facility] BUN 10 7 - 26 mg/dL 11/22/2024 4:27 AM CDT [facility] Creatinine 0.99 0.72 - 1.25 mg/dL 11/22/2024 4:27 AM T [facility] eGFR by CKD-EPI 82(L) >=90 mL/min/1.7 3 m2 11/22/2024 4:27 AM CDT [facility] Blood BLOOD SPECIMEN / Unknown Venipuncture / Unknown 11/22/2024 3:48 AM CDT 11/22/2024 3:53 AM CDT Iris Dominguez [facility] - CHEMISTRY ORDERAB LES Final Result Performing Organization Address [facility]/ZIP Co de Phone Number [facility] [address] [place] [address] * (ABNORMAL) LIPID PROFILE (11/22/2024 3:48 AM CDT) Cholesterol 172 <200 mg/dL 11/22/2024 4:27 AM CDT [facility] Triglycerides 129 <150 mg/dL 11/22/2024 4:27 AM CDT [facility] HDL Cholesterol 37(L) >40 mg/dL 4:27 AM CDT [facility] LDL Calculated 109 <130 mg/dL 11/22/2024 4:27 AM CDT [facility] VLDL Calculated 26 <=30 mg/dL 4:27 AM CDT [facility] Chol HDL Ratio 4.6(H) <4.5 11/22/2024 4:27 AM CDT [facility] LDL/HDL Ratio 3.0 <5.0 11/22/2024 4:27 AM CDT [facility] Blood BLOOD SPECIMEN / Unknown Venipuncture / Unknown 11/22/2024 3:48 AM CDT 11/22/2024 3:53 AM CDT Iris Dominguez [employer]ETING ANALYTICS ANALY[facility] LAB - CHEMISTRY ORDERAB LES Final Result Performing Organization Address City/[facility]/ZIP Co de Phone Number [facility] [id number] [place] [address] * TROPONIN-I HIGH SENSITIVE REFLEX 1HOUR (11/21/2024 5:07 PM CDT) Troponin I High Sensitive 18 <=35 ng/L 11/21/2024 5:52 PM CDT [facility] Delta Troponin I HS 11/21/2024 5:52 PM CDT [facility] Comment:Delta value intentio aparna not calculated. Baseline to 1 hour specimen collection interval exceeded. Blood BLOOD SPECIMEN / Unknown Venipuncture / Unknown 11/21/2024 5:07 PM CDT 11/21/2024 5:18 PM CDT us Iris Dominguez MARKETING ANALYTICS ANALYST-[employer] LAB - CHEMISTRY ORDERAB LES Final Result [facility] [address] [place] [address] * TROPONIN-I HIGH SENSITIVE BASELINE + 1HR (11/21/2024 4:24 PM CDT) Troponin I High Sensitive 17 <=35 ng/L 11/21/2024 4:51 PM CDT [facility] Blood BLOOD SPECIMEN / Unknown Venipuncture / Unknown 11/21/2024 4:24 PM CDT 11/21/2024 4:28 PM CDT us Iris Dominguez MARKETING ANALYTICS ANALYST-[employer] LAB - CHEMISTRY ORDERAB LES Final Result Performing Organization Address [facility] Co de Phone Number [facility] [address] [place] [address] * XR CHEST 1VW PORTABLE (11/21/2024 3:24 PM CDT) Anatomical Region Laterality Modality Chest Computed Radiogr aphy 11/21/2024 3:26 PM CDT Narrative 11/21/2024 3:26 PM CDT PROCEDURE: XR CHEST 1VW PORTABLE, DATE/TIME OF EXAM: 11/21/2024 3:25 PM, LOCATION [facility] INDICATION: I63.9: Cerebral infarction, unspecified (HCC) COMPARISON: None. FINDINGS/IMPRESSION: Bibasilar interstitial opacities represent atelectasis and/or pneumonia. The cardiac silhouette is normal. There is atherosclerotic calcification of the aorta. The visible bony thorax is intact. > Interpreting Provider: Paco Dimas MD on 11/21/2024 3:26 PM Procedure Note Paco Dimas MD - 11/21/2024 PROCEDURE: XR CHEST 1VW PORTABLE, DATE/TIME OF EXAM: 11/21/2024 3:25PM, LOCATION [facility] INDICATION: I63.9: Cerebral infarction, unspecified (HCC) COMPARISON: None. FINDINGS/IMPRESSION: Bibasilar interstitial opacities represent atelectasis and/or pneumonia. The cardiac silhouette is normal. There is atherosclerotic calcificationof the aorta. The visible bony thorax is intact. > Interpreting Provider: Paco Dimas MD on 11/21/2024 3:26 PM Iris Carol StephensonDominguez MARKETING ANALYTICS ANALYST-[employer] DR[employer] DIAGNOSTIC IMAG[facility] Final Result from Last 3 Months Insurance [place] [address] [employer] MEDICARE [facility] Advance Directives * Full Code (Latest Code Status on File) Date Activated Date Inactivated Comments 11/21/2024 1:46 PM 11/23/2024 1:07 PM Care Teams Exercise Teacher Relationship Specialty Start Date End Date Antonio Downing MD [address] [place] [address] PCP - General 05/04/15
--- OUTSIDE RECORDS SUMMARY | 2024-12-27 10:43 | XMS_ITS | Data Portability ---
Author Organization [employer], Main Office Address [address] [place] [address] Care Team Providers Care Taxonomist Name Role Phone NIMO CASON Referring Provider [...] Recorded Time Bilateral pain of inguinal region [id number] 102 Active 2023 Jesse momin MD [address] [place] [address], [place], [address] [facility] [employer] 4 14:23:53 Notes:Some problems listed i n Documents: #[id number], #[id number], #[id number] could not be added to this patient's [...] % 97 % 177.8 cm 25.8 kg/m2 97820.6 3 g 16 /min 130 mm[Hg] 80 mm[Hg] Ashwini Manriquez [place] - [facility] 4 11:34:39 Social History [...] SNOMED-CT Code Diagnosis ICD10 Code Diagnosis Note [id number] Jesse taveras MD [facility] General Surgery [address] [facility] [place] [address] 12/07/2023 11:29:05 02/23/2024 04:00:29 Bilateral pain of inguinal region [id number] R10.31 R10.32 Health Concerns Section Related Observation LastModified by Organization Detai ls LastModified Time None Recorded Concern Status LastModified by Organization Details LastModified Time None Recorded Advance Directives Directive None Recorded Payers Encounter Date Sequence Insurance Name Policy Number Policy Queen Covered Member ID Queen Member ID Guarantor Name 12/07/2023 1 [employer] - [employer] (MEDICARE REPLACEMENT/AD VANTAGE - HMO) [id number] Raghavendra Haddad [id number] Raghavendra Haddad 12/07/2023 2 [place] WHEN MEDICARE OR MEDICARE REPLACEMENT PRIMARY) Raghavendra Haddad [id number] Raghavendra Haddad
[2024-12-27 10:55] LABS: Basophils Absolute Auto 0.1 K/mm3 (0.0-0.1); Basophils Percent Auto 0.7 % (0.2-1.2); Eosinophils Absolute Auto 0.3 K/mm3 (0-0.3); Eosinophils Percent Auto 2.7 % (0-4.4); Hemoglobin 13.5 g/dL (14.0-18.0); Immature Granulocyte Absolute 0.04 K/mm3 (0.00-0.031); Immature Granulocyte Percent A 0.4 % (0-0.5); Lymphocytes Absolute Auto 3.41 K/mm3 (0.9-3.2); Lymphocytes Percent Auto 32.1 % (18.3-44.2); Mean Corpuscular HGB Conc 33.8 g/dl (32-36); Mean Corpuscular Hemoglobin 33.1 pg (26-34); Mean Platelet Volume 8.1 fl (7.4-10.4); Monocytes Absolute Auto 0.7 K/mm3 (0.1-0.6); Monocytes Percent Auto 6.4 % (2.6-8.5); Neutrophils Absolute Auto 6.1 K/mm3 (1.3-6.7); Neutrophils Percent Auto 57.7 % (45.5-73.1); Platelet Count Result 242 k/mm3 (150-375); Red Blood Count 4.08 M/mm3 (4.6-6.20); Red Cell Distribution Width 12.7 % (11.5-14.5); White Blood Count 10.6 K/mm3 (4.5-10.0)
[2024-12-27 11:59] LABS: Alanine Aminotransferase 26 U/L (6-50); Albumin Level 4.2 g/dL (3.5-5.1); Alkaline Phosphatase 122 U/L (38-126); Anion Gap 6 mmol/L (4-12); Aspartate Amino Transferase 97 U/L (17-59); Bilirubin,Total 0.6 mg/dL (0.2-1.3); Blood Urea Nitrogen 18 mg/dL (9-20); Calcium 8.6 mg/dL (8.4-10.2); Carbon Dioxide 28 mmol/L (22-30); Chloride 105 mmol/L (98-107); Estimated Glomerular Filt Rate > 60; Glucose 92 mg/dL (65-110); Lactate Dehydrogenase 142 U/L (120-246); Potassium 3.8 mmol/L (3.4-5.0); Sodium 139 mmol/L (137-145)
== END 2024-12-27 10:40 | disposition home or self-care (01) ==
LOC: ANHLAB 10:40
PROVIDERS: PCP Internal Medicine Gastroenterology; Visit Provider Internal Medicine Hematology & Oncology
DX: C91.10 Chronic lymphocytic leukemia of B-cell type not having achieved remission (principal)
CPT/HCPCS: 36415; 80053; 83615; 85025

== ENCOUNTER 2025-07-08 10:49 | Outpatient (CLI) | payer MEDICARE, MEDICAID, SELFPAY ==
[2025-07-08 11:01] LABS: Hematocrit 44.0 % (42.0-52.0); Hemoglobin 15.1 g/dL (14.0-18.0); Immature Granulocyte Percent A 0.3 % (0-0.5); Lymphocytes Absolute Auto 8.84 K/mm3 (0.9-3.2); Mean Corpuscular HGB Conc 34.3 g/dl (32-36); Mean Corpuscular Hemoglobin 33.3 pg (26-34); Mean Corpuscular Volume 97.1 fl (80-100); Nucleated Red Blood Cells Absolute Auto 0.000 K/mm3 (0.0-0.012); Nucleated Red Blood Cells Perc 0.0 % (0.0-0.2); Platelet Count Result 257 k/mm3 (150-375); Red Blood Count 4.53 M/mm3 (4.6-6.20); White Blood Count 17.6 K/mm3 (4.5-10.0)
[2025-07-08 11:04] LABS: Blood Urea Nitrogen 18 mg/dL (8-26); Carbon Dioxide 28 mmol/L (22-30); Chloride 105 mmol/L (98-109); Estimated Glomerular Filt Rate 54; Glucose 96 mg/dL (70-105); Ionized Calcium (POC) 1.15 mmol/L (1.11-1.31); Potassium 4.0 mmol/L (3.5-4.9); Sodium 144 mmol/L (138-146)
[2025-07-08 11:05] LABS: Schistocytes None Seen
[2025-07-08 11:09] LABS: Smudge Cells PRESENT
[2025-07-08 12:36] LABS: Alanine Aminotransferase 53 U/L (6-50); Albumin Level 4.6 g/dL (3.5-5.1); Alkaline Phosphatase 160 U/L (38-126); Anion Gap 5 mmol/L (4-12); Aspartate Amino Transferase 84 U/L (17-59); Bilirubin,Total 0.6 mg/dL (0.2-1.3); Blood Urea Nitrogen 19 mg/dL (9-20); Calcium 9.2 mg/dL (8.4-10.2); Carbon Dioxide 29 mmol/L (22-30); Chloride 107 mmol/L (98-107); Estimated Glomerular Filt Rate > 60; Glucose 95 mg/dL (65-110); Potassium 4.0 mmol/L (3.4-5.0); Sodium 141 mmol/L (137-145); Total Protein 7.6 g/dL (6.3-8.2)
== END 2025-07-08 10:50 | disposition home or self-care (01) ==
LOC: ANHLAB 10:50
PROVIDERS: PCP Internal Medicine Gastroenterology; Visit Provider Internal Medicine Hematology & Oncology
DX: C91.10 Chronic lymphocytic leukemia of B-cell type not having achieved remission (principal)
CPT/HCPCS: 36415; 80047; 80053; 83615; 85025